=== PATIENT | female | born 1950 | race Caucasian/White ===

== ENCOUNTER 2020-01-10 11:55 | Outpatient (CLI) | payer MEDICARE, SELFPAY ==
--- NOTE | ~2020-01-10 | US_ITS ---
EXAMINATION: US right upper quadrant DATE: 01/10/2020 12:55 INDICATION: Abnormal liver function tests. Generalized abdominal pain. TECHNIQUE: Multiple grayscale and Doppler ultrasound images of the abdomen were obtained. COMPARISON: Chest CT 07/27/2017 FINDINGS: The visualized portions of the head and body of the pancreas are normal. There is diffuse h epatic steatosis. No liver surface nodularity. There is normal flow in main portal vein. The gallblad layton is absent. The common duct is normal and measures 10 mm. IMPRESSION: 1. Diffuse hepatic steatosis. Reviewed, dictated and finalized at location A. Y PACKER
== END 2020-01-10 11:56 | disposition home or self-care (01) ==
PROVIDERS: PCP Family Medicine; Visit Provider Family Medicine
DX: R94.5 Abnormal results of liver function studies (principal); K76.0 Fatty (change of) liver, not elsewhere classified
CPT/HCPCS: 76705

== ENCOUNTER 2021-03-26 16:44 | Emergency (ER) | payer MEDICARE, SELFPAY ==
--- NOTE | ~2021-03-26 | XR_ITS ---
EXAMINATION: XR lumbar spine 2-3V EXAM DATE: 03/26/2021 18:34 INDICATION: Low back pain radiating down bilateral legs. TECHNIQUE: Lumber spine frontal, lateral, lateral L5-S1 projections for interpretation. There is no prior study for comparison. FINDINGS: Mild to moderate lumbar levoscoliosis. Moderate to severe disc disease L2-3, moderate at L5 -S1 and mild to moderate at the other lumbar levels. The vertebral bodies are aligned in the AP dimen david. There are no acute fractures identified. There is mild abdominal aortic arteriosclerotic diseas e. Sacrum, sacroiliac joints, sacral arcuate lines are intact. Moderate lower lumbar facet arthropat hy. There are cholecystectomy clips. IMPRESSION: 1. Overall moderate lumbar spondylosis. 2. Mild to moderate levoscoliosis. 3. No acute findings. Reviewed, dictated and finalized at location A.
[2021-03-26 16:47] VITALS: BP 119/45; PULSE 83; RESP 18; TEMP 35.4; O2SAT 99
--- NOTE | 2021-03-26 18:12 | ED.BACK ---
HPI - Back Pain/Injury General Chief Complaint: Back Pain/Injury <Jesica Alejandra PA-C - Last Filed: 03/26/21 19:08> Stated Complaint: LBP <RUSTAM Mcduffie Last Filed: 03/26/21 19:08> Time Seen by Provider: 03/26/21 17:58 <RUSTAM Mcduffie Last Filed: 03/26/21 19:08> Source: patient <RUSTAM Mcduffie Last Filed: 03/26/21 19:08> Mode of arrival: wheelchair <RUSTAM Mcduffie Last Filed: 03/26/21 19:08> Limitations: no limitations <RUSTAM Mcduffie Last Filed: 03/26/21 19:08> History of Present Illness HPI Narrative: This is a 70-year-old female that presents the emergency department for low back pain x1 week. Does report history of intermittent flares of her sciatic nerve. Pain is worse with movement and relieved with rest. Reports a week ago she had been putting away groceries and after that felt like she had to start her back. She has been having ongoing buttock pain bilaterally that rates into the legs posteriorly. She saw her primary for this today who gave her a shot of Toradol. She also took her hydrocodone this afternoon for pain. Denies any recent injuries or trauma. Denies fever, saddle anesthesia, bowel/bladder incontinence, weakness, or numbness. <RUSTAM Mcduffie Last Filed: 03/26/21 19:08> Related Data Allergies/Adverse Reactions: Allergies Allergy/AdvReac Type Severity Reaction Status Date / Time baclofen Allergy Mild Unknown Verified 03/26/21 18:12 levofloxacin Allergy Mild FAST HR Verified 09/20/19 14:59 zolpidem Allergy Mild Anxiety Verified 03/26/21 18:12 CEFUROXIME AXETIL Allergy Mild Unknown Uncoded 03/26/21 18:12 Contrast Media Allergy Mild Flushing Uncoded 03/26/21 18:12 <RUSTAM Mcduffie Last Filed: 03/26/21 19:08> Review of Systems Review of Systems: Narrative: CONSTITUTIONAL: Denies fever GENITOURINARY: Denies dysuria or hematuria. SKIN: Denies rash MUSCULOSKELETAL: Reports back pain, joint pain, and myalgia. NEUROLOGIC: Denies numbness, or weakness. <Jesica Alejandra PA-C - Last Filed: 03/26/21 19:08> All systems reviewed & are unremarkable except as noted in HPI and below <Jesica Alejandra PA-C - Last Filed: 03/26/21 19:08> PMFSH Past Medical History Medical History: Medical History (Updated 03/27/21 @ 00:00 by Background Daemon) History of COPD History of depression History of hypertension History of hypothyroidism <Jesica Alejandra PA-C - Last Filed: 03/26/21 19:08> Exam Narrative: Exam Narrative: GENERAL: Well-appearing, well-nourished, and in no acute distress. HEAD: Normocephalic, atraumatic. EYES: EOMI. CHEST: Clear to auscultation. No respiratory distress. No wheezes rales or rhonchi HEART: Regular rate and rhythm. No murmur heard. Normal peripheral pulses. BACK: No midline spinal tenderness EXTREMITIES: Normal range of motion. No edema. Strength equal in bilateral lower extremities (5/5). Normal DP pulses. Normal sensation SKIN: Warm, dry, no rash. NEURO: No focal deficits. Alert and oriented x3. PSYCH: Normal mood and affect <Jesica Alejandra PA-C - Last Filed: 03/26/21 19:08> Course Vital Signs Vital signs: Vital Signs Temperature 35.4 C L 03/26/21 16:47 Pulse Rate 83 03/26/21 16:47 Respiratory Rate 18 03/26/21 16:47 Blood Pressure 119/45 L 03/26/21 16:47 Pulse Oximetry 99 03/26/21 16:47 Temperature 35.4 C L 03/26/21 16:47 Pulse Rate 83 03/26/21 16:47 Respiratory Rate 18 03/26/21 16:47 Blood Pressure 119/45 L 03/26/21 16:47 Pulse Oximetry 99 03/26/21 16:47 <RUSTAM Mcduffie Last Filed: 03/26/21 19:08> Vital Signs Temperature 35.4 C L 03/26/21 16:47 Pulse Rate 83 03/26/21 16:47 Respiratory Rate 18 03/26/21 16:47 Blood Pressure 119/45 L 03/26/21 16:47 Pulse Oximetry 99 03/26/21 16:47 Temperature 35.4 C L 03/26/21 16:47 Pulse Rate 83 03/26/21 16:47 Respiratory Rate 18 03/26
[2021-03-26] MEDS: diazePAM INJ (*CRX) 10 MG/2 ML SYRINGE 5 MG IM (18:18)
[2021-03-26] MEDS: ACETAMINOPHEN 500 MG TABLET 1000 MG PO (18:20)
== END 2021-03-26 19:10 | disposition home or self-care (01) ==
PROVIDERS: Emergency Provider Emergency Medicine; PCP Family Medicine
DX: M47.26 Other spondylosis with radiculopathy, lumbar region (principal); J44.9 Chronic obstructive pulmonary disease, unspecified; I10 Essential (primary) hypertension; E03.9 Hypothyroidism, unspecified
CPT/HCPCS: 72100; 96372; 99283; A9270; J3360

== ENCOUNTER 2022-04-05 08:24 | Outpatient (CLI) | payer MEDICARE, SELFPAY ==
--- NOTE | ~2022-04-05 | US_ITS ---
US abdomen limited INDICATION: Gastroesophageal reflux disease. Esophagitis. PROCEDURE: Realtime right upper abdominal ultrasound. COMPARISON: No prior studies for comparison. FINDINGS: The pancreas is normal without focal mass or pancreatic ductal dilation. Liver echotexture is increased, consistent with fatty infiltration. There is normal directional flow in the portal ve in. Gallbladder is not identified, likely surgically absent. Common bile duct measures 2.8 mm. IMPRESSION: 1: Hepatic steatosis. Reviewed, dictated and finalized at location A. IMPRESSION: 1: Hepatic steatosis.
== END 2022-04-05 08:25 | disposition home or self-care (01) ==
LOC: ANHIMG 08:30
PROVIDERS: PCP Family Medicine
DX: K21.00 Gastro-esophageal reflux disease with esophagitis, without bleeding (principal); R74.8 Abnormal levels of other serum enzymes
CPT/HCPCS: 76705

== ENCOUNTER 2022-04-05 09:07 | Emergency (ER) | payer MEDICARE, SELFPAY ==
--- NOTE | ~2022-04-05 | XR_ITS ---
EXAMINATION: XR thoracic spine 3V DATE: 04/05/2022 10:13 INDICATION: Right-sided upper to mid back pain. TECHNIQUE: 3 views of thoracic spine were obtained. COMPARISON: Chest 2 views 07/16/2017, chest CT 07/27/17 FINDINGS: There is 13 degrees dextroscoliosis of thoracic spine. There is a burst fracture of T7 with 2/5 loss of height. Intervertebral disc heights are normal and thoracic spine. There are endplate os teophytes at multiple levels. Surgical clips in the right upper quadrant are likely from cholecystect ayo. IMPRESSION: 1. Age-indeterminate burst fracture of T7, new from 07/27/2017. 2. Thoracic dextroscoliosis. Reviewed, dictated and finalized at location A.
[2022-04-05 09:16] VITALS: BP 179/93; PULSE 95; RESP 22; TEMP 36.8; O2SAT 100
--- NOTE | 2022-04-05 09:54 | ED.BACK ---
HPI - Back Pain/Injury General Chief Complaint: Back Pain/Injury <Hany Sanderson APRN - Last Filed: 04/05/22 16:42> Stated Complaint: BACK PAIN <Hany Sanderson APRN - Last Filed: 04/05/22 16:42> Time Seen by Provider: 04/05/22 09:50 <Hany Sanderson APRN - Last Filed: 04/05/22 16:42> History of Present Illness HPI Narrative: 71-year-old female presents to the emergency room for evaluation of acute on chronic thoracic back pain that has been present since this morning. Patient denies injury, trauma, fever. Patient states the pain is worse when rotating her torso and when bending forward. Patient states that she normally takes Flexeril and [place], reports this morning those did not alleviate her symptoms. Patient denies any radiating pain. Patient states pain is worse when she takes a deep breath. Patient denies any upper respiratory symptoms. <Hany Sanderson APRN - Last Filed: 04/05/22 16:42> Related Data Allergies/Adverse Reactions: Allergies Allergy/AdvReac Type Severity Reaction Status Date / Time baclofen Allergy Mild Unknown Verified 04/05/22 09:22 levofloxacin Allergy Mild FAST HR Verified 04/05/22 09:22 zolpidem Allergy Mild Anxiety Verified 04/05/22 09:22 CEFUROXIME AXETIL Allergy Mild Unknown Uncoded 04/05/22 09:22 Contrast Media Allergy Mild Flushing Uncoded 04/05/22 09:22 <Hany Sanderson APRN - Last Filed: 04/05/22 16:42> Review of Systems Review of Systems: CONSTITUTIONAL: Denies fever, chills, or sweats. EYES: Denies visual changes, redness, or discharge. GASTROINTESTINAL: Denies abdominal pain, nausea, vomiting, or diarrhea. GENITOURINARY: Denies dysuria MUSCULOSKELETAL: Reports thoracic back pain NEUROLOGIC: Denies headache, numbness, dizziness, or weakness. PSYCHIATRIC: Denies anxiety or depression. <Hany Sanderson APRN - Last Filed: 04/05/22 16:42> All systems reviewed & are unremarkable except as noted in HPI and below <Hany Sanderson APRN - Last Filed: 04/05/22 16:42> [facility] Past Medical History Medical History: Medical History History of COPD History of depression History of hypertension History of hypothyroidism <Hany Sanderson APRN - Last Filed: 04/05/22 16:42> Exam Narrative: GENERAL: Well-appearing, well-nourished, and in no acute distress. HEAD: Normocephalic, atraumatic. EYES: PERRLA and EOMI. ENT: Nares clear, no rhinorrhea or epistaxis. Mucous membranes moist. Oropharynx without tonsillar hypertrophy exudate or other lesions. Bilateral TMs pearly hartmann nonbulging NECK: Supple. No adenopathy or masses. No carotid bruits or JVD CHEST: Clear to auscultation. No respiratory distress. No wheezes rales or rhonchi HEART: Regular rate and rhythm. No murmur heard. Normal peripheral pulses. ABDOMEN: Soft, nontender, nondistended, normal active bowel sounds. EXTREMITIES: Normal range of motion. No edema. BACK: No midline thoracic spinal tenderness, no step-offs, no bony abnormality; tenderness over the left and right latissimus dorsi muscles SKIN: Warm, dry, no rash. NEURO: No focal deficits. Alert and oriented x3. PSYCH: Normal mood and affect. <Hany Sanderson APRN - Last Filed: 04/05/22 16:42> Course Course Emergency Course: 1100: Discussed case with orthospine at [facility], they are recommending patient transfer over to ER for further evaluation and treatment. Discussed findings and case with patient and she is agreeable to treatment plan <Hany Sanderson APRN - Last Filed: 04/05/22 16:42> ELECTRICAL MANUFACTURING TECHNICIAN/PA Physician Supervision For this encounter, I have reviewed the PA documentation, treatment plan and medical decision making: And I have had [id number] time with the patient. Discussed with patient need for transfer discussed all questions patient is in agreement <Bhupinder Bill DO - Last Filed: 04/05/22 11:27> Vital Signs Vital signs: Vital Signs Temper
[2022-04-05 10:34] LABS: Appearance Urine Slightly Cloudy (Clear); Bilirubin Urine 1+ (Negative); Blood Urine Negative (Negative); Color Urine Yellow (Yellow); Glucose Urine UA Negative (Negative); Ketones Urine Negative (Negative); Leukocyte Esterase Ur Negative LEU/UL (Negative); Nitrate Urine Negative (Negative); Protein Urine Negative (Negative); Specific Grav Ur >= 1.030 (1.001-1.035); Urobilinogen Urine 0.2 mg/dL (<2.0); pH Urine 5.5 (5.0-9.0)
[2022-04-05 10:43] LABS: Add Urine Microscopic? YES; Bacteria Urine Trace /hpf; Calcium Oxalate Crystals Urine Present /hpf; Mucus Urine Heavy /lpf; Squamous Epithelial Cell Urine Many /hpf (Few); WBC Urine 0-3 /hpf
--- NOTE | 2022-04-05 11:35 | PC.NURSE ---
report called to KERRIE macdonald calledfor transport
--- NOTE | 2022-04-05 11:40 | PC.NURSE ---
per house sup called macdonald dispatch for bls transfer to [facility] [place] 20min trip #[phone]
[2022-04-05] MEDS: MORPHINE SULFATE (*CRX) 2 MG/ML INJ IV PUSH (12:24)
[2022-04-05 12:32] VITALS: BP 132/78; PULSE 76; RESP 18; O2SAT 99
== END 2022-04-05 12:33 | disposition short-term general hospital (02) ==
PROVIDERS: Emergency Medicine; Emergency Provider Nurse Practitioner Family; PCP Family Medicine
DX: S22.061A Stable burst fracture of T7-T8 vertebra, initial encounter for closed fracture (principal); K76.0 Fatty (change of) liver, not elsewhere classified; J44.9 Chronic obstructive pulmonary disease, unspecified; I10 Essential (primary) hypertension; E03.9 Hypothyroidism, unspecified; X58.XXXA Exposure to other specified factors, initial encounter
CPT/HCPCS: 72072; 76705; 81001; 96374; 99285; J2270

== ENCOUNTER 2022-05-14 09:15 | Outpatient (CLI) | payer MEDICARE, SELFPAY ==
--- NOTE | ~2022-05-14 | XR_ITS ---
EXAMINATION: XR barium swallow DATE: 05/14/2022 10:01 INDICATION: Esophageal dysphagia TECHNIQUE: The patient drank thick barium, gas-producing crystals, and thin barium. Fluoroscopic spot radiographs of the hypopharynx and esophagus were obtained. Fluoroscopy exposure time was 2.0 minut es. COMPARISON: 1607 FINDINGS: The pharynx is symmetric and without evidence of mass lesion or mucosal irregularity. Thick barium residue at the vallecula and piriform sinuses following the swallow The esophagus is normal w ithout mass or stricture. Esophageal motility is within normal limits for age. There is no hiatal her reshma. There was a single episode of gastroesophageal reflux of a very small amount of contrast into th e distal esophagus with provocative maneuvers. Visualized stomach and proximal small bowels appear no rmal. Cholecystectomy clips in right upper quadrant. T7 compression fracture with change of prior lawrence tebroplasty. IMPRESSION: 1. Mild pharyngeal dysphagia with vallecular and piriform sinus residue with thick barium. 2. Esophageal motility is within normal limits for age. No masses or strictures. 3. Single episode of gastroesophageal reflux of a very small amount of contrast into the distal esoph shellie.. Reviewed, dictated and finalized at location A. IMPRESSION: 1. Mild pharyngeal dysphagia with vallecular and piriform sinus residue with th ick barium. 2. Esophageal motility is within normal limits for age. No masses or strictures . 3. Single episode of gastroesophageal reflux of a very small amount of contrast into the distal esophagus..
== END 2022-05-14 09:16 | disposition home or self-care (01) ==
PROVIDERS: PCP Family Medicine
DX: R13.19 Other dysphagia (principal)
CPT/HCPCS: 74220

== ENCOUNTER 2022-10-12 10:18 | Outpatient (CLI) | payer MEDICARE, SELFPAY ==
--- NOTE | ~2022-10-12 | MR_ITS ---
EXAMINATION: MR lumbar spine wo con DATE: 10/12/2022 11:49 INDICATION: Low back pain. Closed stable burst fracture of seventh thoracic vertebra. TECHNIQUE: Magnetic resonance imaging (MRI) of the lumbar spine was performed without intravenous con trast. Sequences included sagittal T2-weighted FSE, sagittal T2-weighted FS FSE, sagittal T1-weighted FSE, and axial T2-weighted FSE. COMPARISON: Lumbar spine MRI 06/21/2005 FINDINGS: There is 13 degrees levoscoliosis of lumbar spine. There is a burst fracture of inferior en dplate of L3 with 1/5 loss of height, edema-like signal intensity, and retropulsion of bone 3 mm into central spinal canal. There is a burst fracture of superior endplate of L4 with less than 1/5 loss o f height and edema-like marrow signal intensity. There is mild chronic anterior wedging of T10 and T1 1 vertebral bodies. There is a chronic compression fracture of L5 with less than 1/5 loss of height. There is mildly decreased disc height at L1-L2, severely decreased disc height at L2-L3, and moderate ly decreased disc height at L5-S1. The distal spinal cord signal intensity is normal. The conus medul kaur is at L1. The following disc levels are specifically discussed: L1-L2: The disc is bulging. There is mild bilateral facet joint osteoarthritis. There is mild left ne ural foraminal stenosis. There is mild central canal stenosis. L2-L3: The disc is bulging. There is moderate right and mild left facet joint osteoarthritis. There i s mild bilateral neural foraminal stenosis. There is mild central canal stenosis. L3-L4: The disc is bulging. There is moderate bilateral facet joint osteoarthritis. There is mild yusef ateral neural foraminal stenosis. There is mild central canal stenosis. L4-L5: The disc is bulging. There is severe bilateral facet joint osteoarthritis. There is mild bilat eral neural foraminal stenosis. There is no central canal stenosis. L5-S1: The disc is bulging. There is severe bilateral facet joint osteoarthritis. There is mild bilat eral neural foraminal stenosis. There is mild central canal stenosis. IMPRESSION: 1. Burst fractures of L3 and L4, likely acute or subacute. 2. Severe lumbar spondylosis. 3. Lumbar levoscoliosis. Reviewed, dictated and finalized at location A. ATIONS SYSTEMS SPECIALIST
== END 2022-10-12 10:19 | disposition home or self-care (01) ==
PROVIDERS: PCP Family Medicine; Visit Provider Neurological Surgery
DX: S22.061S Stable burst fracture of T7-T8 vertebra, sequela (principal); M54.9 Dorsalgia, unspecified; S32.031A Stable burst fracture of third lumbar vertebra, initial encounter for closed fracture; S32.041A Stable burst fracture of fourth lumbar vertebra, initial encounter for closed fracture; M43.06 Spondylolysis, lumbar region; M41.86 Other forms of scoliosis, lumbar region
CPT/HCPCS: 72148

== ENCOUNTER 2022-12-27 08:03 | Emergency (ER) | payer MEDICARE, SELFPAY ==
--- NOTE | ~2022-12-27 | CT_ITS ---
EXAMINATION: CT abdomen pelvis wo con DATE: 12/27/2022 09:29 INDICATION: Right flank pain TECHNIQUE: Computed tomography (CT) of the abdomen and pelvis was performed without intravenous contr ast. The dose-length product (DLP) was 306.79 mGy-cm. Automated exposure control and iterative recons truction technique were employed. COMPARISON: MRI, 10/12/2022 FINDINGS: The lung bases are clear. The heart size is normal. The gallbladder is surgically absent. T he liver, spleen, pancreas, and adrenal glands are normal. There is calcified atherosclerosis of the aorta and many of the other arteries. No pathologically enlarged abdominal or pelvic lymph nodes are identified. No free intraperitoneal gas or evidence of bowel obstruction. The kidneys are unremarkabl e. No stones are identified in the kidneys, ureters, or bladder. No hydronephrosis or hydroureter. Th ere is a large volume of stool in the right colon. Again noted are burst fractures of L3 and L4. Ther e has been worsening loss of vertebral body height at L4 since the comparison MRI. A compression frac ture of T12 is new since the comparison examination. IMPRESSION: 1. Large volume of stool in the right colon. 2. T12 compression fracture, new since the comparison examination. 3. Chronic burst fractures of L3 and L4 with worsening loss of vertebral body height at L4 since the comparison MRI. Reviewed, dictated and finalized at location B. K WETTER IMPRESSION: 1. Large volume of stool in the right colon. 2. T12 compression fracture, new since the comparison examination. 3. Chronic burst fractures of L3 and L4 with worsening loss of vertebral body h eight at L4 since the comparison MRI.
[2022-12-27 08:19] VITALS: BP 149/90; PULSE 100; RESP 18; TEMP 37; O2SAT 98
--- NOTE | 2022-12-27 09:07 | ED.BACK ---
HPI - Back Pain/Injury General Chief Complaint: Back Pain/Injury Stated Complaint: CHRONIC BACK PAIN Time Seen by Provider: 12/27/22 08:52 History of Present Illness HPI Narrative: Patient is a 72-year-old female here for evaluation of acute right flank pain over the past day. Patient states the pain is severe in nature, originating in her right flank and does radiate towards the middle of her thoracic spine. She states that she has attempted [place] without relief of her symptoms. She does have a history of a thoracic spine compression fracture for which she follows with an orthopedist at [facility]. No trauma to her spine, fevers or chills, nausea or vomiting. She does have a history of urge incontinence and does note that she had an episode of this before coming to the ED. No dysuria, hematuria. Related Data Allergies Allergy/AdvReac Type Severity Reaction Status Date / Time baclofen Allergy Mild Unknown Verified 12/27/22 08:24 levofloxacin Allergy Mild FAST HR Verified 12/27/22 08:24 zolpidem Allergy Mild Anxiety Verified 12/27/22 08:24 CEFUROXIME AXETIL Allergy Mild Unknown Uncoded 12/27/22 08:24 Contrast Media Allergy Mild Flushing Uncoded 12/27/22 08:24 Review of Systems Review of Systems: Gen.: Denies fevers or chills Eyes: Denies eye pain or visual change ENT: Denies congestion Respiratory: Denies shortness of breath or cough CV: Denies chest pain or palpitations GI: Denies abdominal pain nausea, emesis or diarrhea denies burning, urgency, frequency or hematuria Musculoskeletal: Reports right flank pain Neuro: Denies numbness, tingling, weakness or focal weakness Skin: Denies rash Except as documented, all other systems reviewed and negative PMFSH Past Medical History Medical History History of COPD History of depression History of hypertension History of hypothyroidism Exam Narrative: APPEARANCE: Well appearing, no pain in distress, well-nourished. Head: Normocephalic and atraumatic. EYES: PERRLA/EOMI, conjunctivae clear NOSE: No nasal drainage EARS: External ear normal in appearance THROAT: Oropharynx is clear. Mucous membranes are moist. NECK: Supple. No adenopathy, no masses. RESPIRATORY: Airway patent, respirations nonlabored. Clear to auscultation bilaterally, no rales, rhonchi, wheezing. CARDIOVASCULAR: Regular rate and rhythm without murmurs, rubs, or gallops. ABDOMINAL: Normoactive bowel sounds. Soft, nontender, nondistended. No rebound tenderness or guarding. MUSCULOSKELETAL: Tenderness to palpation along right flank and midline of T10/t11. NEURO: Normal speech. No focal neurologic deficits. SKIN: Skin is warm and dry. No rashes. PSYCHIATRIC: Normal affect/mood.. Course Vital Signs Vital signs: Vital Signs Temperature 98.6 F 12/27/22 08:19 Pulse Rate 100 12/27/22 08:19 Respiratory Rate 18 12/27/22 08:19 Blood Pressure 149/90 H 12/27/22 08:19 Pulse Oximetry 98 12/27/22 08:19 Oxygen Delivery Room Air 12/27/22 08:19 Temperature 98.6 F 12/27/22 08:19 Pulse Rate 100 12/27/22 08:19 Respiratory Rate 18 12/27/22 08:19 Blood Pressure 149/90 H 12/27/22 08:19 Pulse Oximetry 98 12/27/22 08:19 Oxygen Delivery Room Air 12/27/22 08:19 MDM - Back Pain/Injury MDM Narrative Medical decision making narrative: Patient is a 72-year-old female here for evaluation of acute on chronic low back pain, tenderness to palpation along midline of thoracic spine without trauma. She has evidence of a new T12 compression fracture on the CT. She has no weakness in her legs, numbness or tingling in groin, acute incontinence or retention of bowel or bladder. Patient feeling improved after pain meds, able to ambulate with a walker. Feels ready to go home; has home meds that she has not been using for chronic pain. Discussed with neurosurgery; agrees with plan; will see in clinic. Recommend contacting back brace clinic; [facility]
[2022-12-27 09:25] LABS: Basophils Percent Auto 0.2 % (0.2-1.2); Eosinophils Percent Auto 0.3 % (0-4.4); Hematocrit 41.9 % (37.0-47.0); Immature Granulocyte Absolute 0.06 K/mm3 (0.00-0.031); Immature Granulocyte Percent A 0.9 % (0-0.5); Lymphocytes Absolute Auto 0.66 K/mm3 (0.9-3.2); Lymphocytes Percent Auto 10.1 % (18.3-44.2); Mean Corpuscular HGB Conc 33.4 g/dl (32-36); Mean Corpuscular Hemoglobin 32.7 pg (26-34); Mean Corpuscular Volume 97.9 fl (80-100); Mean Platelet Volume 10.1 fl (7.4-10.4); Monocytes Absolute Auto 0.5 K/mm3 (0.1-0.6); Monocytes Percent Auto 8.1 % (2.6-8.5); Neutrophils Absolute Auto 5.3 K/mm3 (1.3-6.7); Neutrophils Percent Auto 80.4 % (45.5-73.1); Platelet Count Result 156 k/mm3 (150-375); Red Blood Count 4.28 M/mm3 (4.2-5.4); Red Cell Distribution Width 15.1 % (11.5-14.5); White Blood Count 6.6 K/mm3 (4.5-10.0)
[2022-12-27] MEDS: MORPHINE SULFATE (*CRX) 4 MG/ML INJ IV PUSH (09:36)
[2022-12-27 09:45] LABS: Alanine Aminotransferase 32 U/L (6-35); Albumin Level 3.4 g/dL (3.5-5.1); Alkaline Phosphatase 67 U/L (38-126); Anion Gap 3 mmol/L (8-16); Aspartate Amino Transferase 38 U/L (14-36); Bilirubin,Total 1.2 mg/dL (0.2-1.3); Blood Urea Nitrogen 23 mg/dL (7-17); Calcium 8.6 mg/dL (8.4-10.2); Carbon Dioxide 31 mmol/L (22-30); Chloride 104 mmol/L (98-107); Estimated CRCL calculation 43 ml/min; Estimated Glomerular Filt Rate > 60; Glucose 86 mg/dL (65-110); Sodium 138 mmol/L (137-145)
[2022-12-27 10:20] LABS: Appearance Urine Clear (Clear); Bilirubin Urine 1+ (Negative); Blood Urine Negative (Negative); Color Urine Yellow (Yellow); Glucose Urine UA Negative (Negative); Ketones Urine Negative (Negative); Leukocyte Esterase Ur Trace LEU/UL (Negative); Nitrate Urine Negative (Negative); Protein Urine Negative (Negative); Specific Grav Ur 1.015 (1.001-1.035); Urobilinogen Urine 0.2 mg/dL (<2.0)
[2022-12-27 10:24] LABS: Mucus Urine Rare /lpf; RBC Urine 0-2 /hpf (0-2); Squamous Epithelial Cell Urine Few /hpf (Few); WBC Urine 0-3 /hpf
[2022-12-27 10:25] LABS: Add Urine Microscopic? YES
[2022-12-27] MEDS: LIDOCAINE 5% PATCH 1 PATCH TRANSDERM (10:59)
== END 2022-12-27 11:32 | disposition home or self-care (01) ==
PROVIDERS: Emergency Provider Physician Assistant; PCP Family Medicine
DX: M48.54XA Collapsed vertebra, not elsewhere classified, thoracic region, initial encounter for fracture (principal); J44.9 Chronic obstructive pulmonary disease, unspecified; I10 Essential (primary) hypertension; E03.9 Hypothyroidism, unspecified
CPT/HCPCS: 36415; 74176; 80053; 81001; 83605; 85025; 96374; 99284; A9270; J2270

== ENCOUNTER 2023-03-16 14:15 | Outpatient (CLI) | payer MEDICARE, SELFPAY ==
--- NOTE | ~2023-03-16 | DEXA_ITS ---
Bone Density Report Name: ROSANGELA ORR Age: 72 Sex: Female Ethnicity: White Date of : 1950 Indication: postmenopausal; screening for osteoporosis; inflammatory bowel disease; prior fracture; asthma or emphysema; hysterectomy; rheumatoid arthritis; Referring Provider: BETTYE, OSMAN Beasley Study: Bone densitometry was performed. Exam Date: March 16, 2023 Accession number: [id number] Bone Density: Region BMD T-score Z-score Classification AP Spine(L1, L2, L3) 0.752 -2.4 -0.3 Osteopenia Femoral Neck (Left) 0.420 -3.9 -2.0 Osteoporosis Total Hip (Left) 0.540 -3.3 -1.8 Osteoporosis Femoral Neck (Right) 0.461 -3.5 -1.7 Osteoporosis Total Hip (Right) 0.570 -3.0 -1.5 Osteoporosis Total Hip Mean 0.555 -3.2 -1.7 Osteoporosis World Health Organization criteria for BMD impression classify patients as: Normal (T-score at or above -1.0), Osteopenia (T-score between -1.0 and -2.5), or Osteoporosis (T-score at or below -2.5). 10-year Fracture Risk: FRAX not reported because: Some T-score for Spine Total or Hip Total or Femoral Neck at or below -2.5 Prior hip or vertebral fracture Clinical Information Provided by Patient: Have had a previous hip or vertebral fracture Has had a low trauma fracture Has rheumatoid arthritis Has used the following medications: Vitamin D, Calcium Has the following medical conditions: Asthma or Emphysema, Inflammatory bowel diseases, Hysterectomy Patient maximum height was 51 Menopause Age: 46 Does not regularly consume dairy products Drinks caffeinated beverages Onset of menses at age 15 Number of children 2 Impression: The patient has established osteoporosis, based on the Left Femoral Neck T-score and the existence of a prior fracture. The patient has risk factors, including: previous fracture. Discussion: HIGH RISK OF FRACTURE. BONE DENSITY IS UNDESIRABLY LOW AT ONE OR MORE SKELETAL SITES, CONSISTENT WITH POSTMENOPAUSAL OSTEOPOROSIS. This patient's lowest T-score, in a patient who has previously fractured, meets the World Health Organization's (WHO) criteria for severe osteoporosis. In untreated patients, the risk of osteoporotic fracture increases approximately two-fold for each 1.0 SD decrease in T-score. Low bone density is not the only risk factor for fracture; also consider factors such as patient's age, frailty or poor health, risk of falling, risk of injury, previous osteoporotic fracture, family history of osteoporosis, cigarette smoking, low body weight, etc. Not everyone with low bone mineral density has osteoporosis; osteomalacia and other metabolic bone disorders should also be considered. Patients who have osteoporosis should be evaluated for specific diseases and conditions (secondary causes) that may cause or contribute to bone loss. [employer]
[2023-03-16 16:13] LABS: Alanine Aminotransferase 23 U/L (6-35); Albumin Level 3.3 g/dL (3.5-5.1); Alkaline Phosphatase 95 U/L (38-126); Anion Gap 4 mmol/L (8-16); Aspartate Amino Transferase 56 U/L (14-36); Bilirubin,Total 0.9 mg/dL (0.2-1.3); Blood Urea Nitrogen 16 mg/dL (7-17); Calcium 8.7 mg/dL (8.4-10.2); Carbon Dioxide 28 mmol/L (22-30); Chloride 105 mmol/L (98-107); Estimated Glomerular Filt Rate > 60; Glucose 106 mg/dL (65-110); Potassium 3.9 mmol/L (3.4-5.0); Sodium 137 mmol/L (137-145)
[2023-03-16 16:25] LABS: Parathyroid Intact 42.5 pg/mL (7.5-53.5)
[2023-03-16 17:32] LABS: Free T4 Free Thyroxine 1.63 ng/mL (0.78-2.19); Vitamin D 25 Hydroxy 56.8 ng/mL
[2023-03-19 04:40] LABS: Thyroid Peroxidase Antibodies <1 IU/mL (<9)
[2023-03-20 04:05] LABS: Triiodothyronine T3 Free 2.9 pg/mL (2.3-4.2)
== END 2023-03-16 14:16 | disposition home or self-care (01) ==
LOC: ANHIMG 14:42
PROVIDERS: PCP Family Medicine; Visit Provider Internal Medicine Endocrinology, Diabetes & Metabolism
DX: M81.0 Age-related osteoporosis without current pathological fracture (principal); E03.9 Hypothyroidism, unspecified; M85.88 Other specified disorders of bone density and structure, other site
CPT/HCPCS: 36415; 77080; 80053; 82306; 83970; 84439; 84443; 84481; 86376

== ENCOUNTER 2023-06-05 12:12 | Inpatient (IN) | payer MEDICARE, SELFPAY ==
[2023-06-05] VITALS (28 sets, daily range): BP systolic 95–160; BP diastolic 56–101; PULSE 86–105; RESP 12–28; TEMP 36–36.8; O2SAT 78–100; BMI 18.4
--- NOTE | ~2023-06-05 | XR_ITS ---
XR chest 2V 06/05/2023 12:58 Indication: Epigastric discomfort Procedure: 2 view chest Comparison: 07/16/2017 Findings: Heart size normal. No focal air space disease, pulmonary edema, pleural effusion or suspect ed pneumothorax. There are multiple compression fractures treated with vertebroplasty. Impression: 1: No acute cardiopulmonary disease. Reviewed, dictated and finalized at location A. Impression: 1: No acute cardiopulmonary disease.
--- NOTE | ~2023-06-05 | XR_ITS ---
MODIFIED ESOPHAGRAM HISTORY: Dysphagia. TECHNIQUE: Modified barium esophagram was performed by speech pathologist under radiologist fluorosco pic guidance. This was recorded on tape. The exam was reviewed on 06/06/2023 14:04 CDT. The DAP for this procedure was 0.61 Gycm2. Fluoroscopy time is 1.3 minutes. FINDINGS: Lateral projection of the cervical spine demonstrates normal alignment. There is normal s wallowing function without evidence for penetration or aspiration.. IMPRESSION: 1: Normal swallowing function without penetration or aspiration. 2: Please refer to speech pathologist report for additional detail. Reviewed, dictated and finalized at location A.
--- NOTE | ~2023-06-05 | CT_ITS ---
EXAMINATION: CT abdomen pelvis w con DATE: 06/06/2023 10:08 INDICATION: 25 pound weight loss in several months TECHNIQUE: Computed tomography (CT) of the abdomen and pelvis was performed with 90 CC Omnipaque 350 intravenous contrast. Automated exposure control and iterative reconstruction technique were employed . Exam dose: 278.76 mGy-cm total exam DLP. COMPARISON: December 27, 2022 CT abdomen pelvis FINDINGS: There is mild atelectasis at the lung bases. Normal heart size. No pericardial or pleural effusion. There is diffuse hepatic steatosis. No focal hepatic space-occupying mass lesion is detected. Status post cholecystectomy. No bile duct or pancreatic duct dilatation is detected. No pancreatic ma ss lesion or calcification. Normal splenic size. Normal morphology of the adrenal glands. 4.7 mm upper pole right renal cyst. The kidneys are otherwise unremarkable. No urinary tract calculus or hydroureteronephrosis is evident. The urinary bladder is unremarkable. Status post hysterectomy. There is perihepatic and perisplenic and bilateral paracolic gutter and more prominent pelvic ascites . There is a fairly prominent amount of fecal material in the rectum and colon. No bowel obstruction is detected. No intraperitoneal free air. Normal caliber but prominent atherosclerotic calcification of the abdominal aorta, iliac and femoral arteries. There is calcification at the origins of the celiac, superior mesenteric arteries and parti cularly the right renal artery. No intraperitoneal or retroperitoneal or pelvic mass lesion or adenopathy is detected. There is vertebroplasty at T12 and L4 fractures. Osteopenia. Multilevel degenerative disc disease of the lumbar spine, severe at L2-3 and L5-S1. IMPRESSION: Diffuse hepatic steatosis and moderate ascites Reviewed, dictated and finalized at Location A. Reviewed, dictated and finalized at location B.
--- NOTE | ~2023-06-05 | XR_ITS ---
EXAMINATION: XR_KUBGTUBINS_CR DATE: 06/07/2023 15:57 INDICATION: Nasogastric tube placement TECHNIQUE: AP view of the abdomen was obtained. COMPARISON: CT dated 06/06/2023 FINDINGS: Nasogastric tube tip in proximal side port in the body of the stomach. There is some oral contrast ma terial extending across the transverse colon likely related to the modified barium swallow study perf ormed one day prior. Cholecystectomy clips in right upper quadrant. No dilated loops of gas-filled liliya wel to suggest obstruction. T7, T12 and L4 compression fractures with change of prior vertebral plast ies. IMPRESSION: 1. Nasogastric tube in stomach. Reviewed, dictated and finalized at location A.
--- NOTE | ~2023-06-05 | CT_ITS ---
Non-contrast Head CT History: Confusion Technique: Axial non-contrast imaging of the brain was performed. Dose reduction technique was used on this scan by utilizing automated exposure control and iterative reconstruction technique. The dose -length product (DLP) was 605.33 mGy-cm. Findings: There is no evidence of intracranial hemorrhage, mass lesion, or acute infarct. Brain par enchyma appears normal. The ventricles and subarachnoid spaces are normal in size. The calvarium ap pears normal. The visualized paranasal sinuses and mastoid air cells are clear. Impression: No significant abnormality seen. Reviewed, dictated and finalized at location . Impression: No significant abnormality seen.
--- NOTE | ~2023-06-05 | XR_ITS ---
EXAMINATION: XR abdomen/kub 1V DATE: 06/15/2023 11:23 INDICATION: Hypoactive/absent bowel sounds. TECHNIQUE: A supine view of the abdomen was obtained. COMPARISON: CT abdomen and pelvis 06/06/2023 FINDINGS: There are no dilated loops of bowel. There is a large volume of stool in the colon. There i s a gastrostomy tube in expected position. Surgical clips in the right upper quadrant are likely from cholecystectomy. There are changes of vertebroplasty at 2 levels. IMPRESSION: 1. Nonobstructive bowel gas pattern. Reviewed, dictated and finalized at location B.
--- NOTE | ~2023-06-05 | XR_ITS ---
Upright portable view of the abdomen Clinical history: NG tube placement Findings: NG tube in satisfactory position. Bowel gas pattern is nonspecific. No evidence for obstruc tion or free air. No abnormal mass lesion or calcification is seen. Vertebroplasty cement is present at L1 and T8.. Impression: NG tube in satisfactory position. Reviewed, dictated and finalized at [facility]. Impression: NG tube in satisfactory position.
--- NOTE | 2023-06-05 12:18 | ECG_ITS ---
Measurements Intervals [place] Rate: 90 P: 51 FL: 129 QRS: 17 QRSD: 77 T: 39 QT: 360 QTc: 443 Interpretive Statements SINUS RHYTHM BORDERLINE ST-T WAVE ABNORMALITY- DIFFUSE LEADS BASELINE ARTIFACT- I, II, III, AVR, AVL, AVF, V1-V6 BORDERLINE ECG NO PREVIOUS ECG AVAILABLE FOR COMPARISON Electronically Signed On 06-05-2023 16:23:11 CDT by Kali Ureña D.O.
--- NOTE | 2023-06-05 12:19 | ED.GENADULT ---
HPI - General Adult General Chief complaint: Unspecified Stated complaint: hypoglycemic History of Present Illness HPI narrative: 72 year old female history of GERD, HTN, cholecystectomy presented with hypoglycemia. Per patient, she has been having epigastric and throat discomfort for the past 4 days, described as her typical GERD symptoms. The discomfort has caused her to have decreased oral intake. Today she felt whole body fatigue, so called EMS. With EMS, patient noted to have POC glucose 40s, started on d10 with repeat glucose 110s. She denied fevers/chills, nausea/vomiting, abdominal pain, dysuria, hematuria, cough, sick contacts. Past Medical History: HTN, GERD Past Surgical History: cholecystectomy Allergies: baclofen, contrast, cefuroxime Related Data Allergies Allergy/AdvReac Type Severity Reaction Status Date / Time baclofen Allergy Mild Unknown Verified 06/05/23 12:21 levofloxacin Allergy Mild FAST HR Verified 06/05/23 12:21 zolpidem Allergy Mild Anxiety Verified 06/05/23 12:21 CEFUROXIME AXETIL Allergy Mild Unknown Uncoded 06/05/23 12:21 Contrast Media Allergy Mild Flushing Uncoded 06/05/23 12:21 Review of Systems Review of Systems: See HPI [facility] Past Medical History Medical History History of COPD History of depression History of hypertension History of hypothyroidism Exam Narrative: General: Alert, calm and cooperative, no acute distress, phonating, sitting comfortably during visit, elderly, frail HEENT: Pupils equal round and reactive to light, extra ocular movements intact, no conjunctival injection, head atraumatic, neck supple without meningismus Cardiovascular: Regular rate and rhythm, no visible jugular venous distension Respiratory: Lungs clear to auscultation bilaterally, no wheezing/rales/rhonchi Abdominal: soft, non-tender, non-distended, no guarding, no rebound/peritoneal signs, no costovertebral tenderness to palpation Back: no midline tenderness to palpation, no step offs Extremities: No edema, palpable peripheral pulses, warm, well perfused, no tenderness to bilateral calves Neurological: Alert, moving all extremities symmetrically Course Vital Signs Vital signs: Vital Signs Temperature 97.6 F 06/05/23 12:08 Pulse Rate 93 06/05/23 12:08 Respiratory Rate 16 06/05/23 12:08 Blood Pressure 129/77 06/05/23 12:08 Pulse Oximetry 99 06/05/23 12:08 Oxygen Delivery Room Air 06/05/23 12:08 Temperature 97.6 F 06/05/23 12:08 Pulse Rate 104 H 06/05/23 13:47 Respiratory Rate 28 H 06/05/23 13:47 Blood Pressure 160/101 H 06/05/23 13:47 Pulse Oximetry 100 06/05/23 13:47 Oxygen Delivery Room Air 06/05/23 12:08 Medical Decision Making MDM Narrative Medical decision making narrative: 72 year old female history of GERD, HTN presented with decreased oral intake, hypoglycemia, and epigastric discomfort. Physical exam benign, sitting comfortably, elderly, frail, vitals stable. Differential diagnosis includes but not limited to: ACS vs cholecystitis vs pancreatitis vs UTI. Bloodwork reviewed, UA suggestive of UTI. Hypokalemia 3.3, potassium and magnesium repleted. IV fluids given, ceftriaxone IV given. History and exam suggestive of complicated UTI with hypoglycemia and electrolyte derangement. Case discussed with hospitalist. Given acute nature of presenting disease process and potential for decompensation, the patient would benefit from medical admission for further optimization and management. Vital Signs Vital Signs: Vital Signs Temperature 97.6 F 06/05/23 12:08 Pulse Rate 93 06/05/23 12:08 Respiratory Rate 16 06/05/23 12:08 Blood Pressure 129/77 06/05/23 12:08 Pulse Oximetry 99 06/05/23 12:08 Oxygen Delivery Room Air 06/05/23 12:08 Temperature 97.6 F 06/05/23 12:08 Pulse Rate 104 H 06/05/23 13:47 Respiratory Rate 28 H 06/05/23 13:47 Blood Pressure 160/101 H 06/05
[2023-06-05 12:20] LABS: Glucose Point of Care 113 mg/dl (65-105)
[2023-06-05] MEDS: MAG HYDROX/AL HYDROX/SIMETH 30 ML UDC PO (12:32)
[2023-06-05] MEDS: FAMOTIDINE 20 MG/2 ML VIAL IV PUSH ×2 (12:32→20:05)
[2023-06-05 12:43] LABS: Basophils Percent Auto 0.4 % (0.2-1.2); Eosinophils Absolute Auto 0.1 K/mm3 (0-0.3); Eosinophils Percent Auto 1.1 % (0-4.4); Hematocrit 41.8 % (37.0-47.0); Hemoglobin 13.7 g/dL (12.0-15.0); Immature Granulocyte Absolute 0.01 K/mm3 (0.00-0.031); Immature Granulocyte Percent A 0.2 % (0-0.5); Lymphocytes Absolute Auto 1.11 K/mm3 (0.9-3.2); Lymphocytes Percent Auto 23.3 % (18.3-44.2); Mean Corpuscular HGB Conc 32.8 g/dl (32-36); Mean Corpuscular Hemoglobin 31.8 pg (26-34); Mean Platelet Volume 11.3 fl (7.4-10.4); Monocytes Absolute Auto 0.3 K/mm3 (0.1-0.6); Monocytes Percent Auto 6.7 % (2.6-8.5); Neutrophils Absolute Auto 3.3 K/mm3 (1.3-6.7); Neutrophils Percent Auto 68.3 % (45.5-73.1); Platelet Count Result 197 k/mm3 (150-375); Red Blood Count 4.31 M/mm3 (4.2-5.4); Red Cell Distribution Width 18.8 % (11.5-14.5); White Blood Count 4.8 K/mm3 (4.5-10.0)
[2023-06-05 12:55] LABS: Alanine Aminotransferase 24 U/L (6-35); Albumin Level 2.8 g/dL (3.5-5.1); Alkaline Phosphatase 106 U/L (38-126); Anion Gap 14 mmol/L (8-16); Aspartate Amino Transferase 76 U/L (14-36); Bilirubin Direct 0.1 mg/dL (0-0.3); Bilirubin,Total 2.1 mg/dL (0.2-1.3); Blood Urea Nitrogen 17 mg/dL (7-17); Calcium 8.3 mg/dL (8.4-10.2); Carbon Dioxide 25 mmol/L (22-30); Chloride 97 mmol/L (98-107); Estimated CRCL calculation 33 ml/min; Estimated Glomerular Filt Rate 55; Glucose 160 mg/dL (65-110); Lactic Acid Reflex 1.8 mmol/L (0.7-2.0); Lipase 58 U/L (23-300); Potassium 3.3 mmol/L (3.4-5.0); Sodium 136 mmol/L (137-145)
[2023-06-05 13:07] LABS: NT Pro B Type Natriuretic Pept 715 pg/mL (19.9-100); Troponin I < 0.012 ng/mL (0.000-0.034)
[2023-06-05] MEDS: POTASSIUM CHLORIDE 20 MEQ ER TABLET 40 MEQ PO (13:30)
[2023-06-05] MEDS: MAGNESIUM SULF 2 GM/WATER 50ML 2 GM/50 ML BAG IVPB (13:30)
[2023-06-05] MEDS: LACTATED RINGERS 1,000 ML 999 ML IV CONT (13:30)
[2023-06-05 13:45] LABS: Appearance Urine Cloudy (Clear); Bacteria Urine 4+ /hpf; Bilirubin Urine 2+ (Negative); Blood Urine Negative (Negative); Color Urine Dark Yellow (Yellow); Glucose Urine UA 1+ mg/dL (Negative); Ketones Urine 1+ mg/dL (Negative); Leukocyte Esterase Ur 2+ LEU/UL (Negative); Mucus Urine Present /lpf; Nitrate Urine Positive (Negative); Non Pathogenic Casts >20; Protein Urine 2+ mg/dL (Negative); RBC Urine 51-100 /hpf (0-2); Specific Grav Ur 1.028 (1.001-1.035); Squamous Epithelial Cell Urine Few /hpf (Few); WBC Urine 21-50 /hpf; pH Urine 5.5 (5.0-9.0)
[2023-06-05 13:47] LABS: Add Urine Microscopic? YES
[2023-06-05 15:50] LABS: Glucose Point of Care 55 mg/dl (65-105)
[2023-06-05] MEDS: DEXTROSE 50% 25 GM/50 ML SYRINGE IV PUSH (15:51)
--- NOTE | 2023-06-05 16:46 | PM.IMHP ---
H&P: HPI History of Present Illness Date/Time: 06/05/23 16:46 Chief Complaint: Hypoglycemic event Narrative: This is a 72-year-old female patient who has a history of GERD, hypertension, and she has lost 25 lb over the last few months. The patient stated that she is been having severe acid reflux and has had a poor appetite. She is on history of GERD. The patient stated that she felt fatigued today and therefore activated EMS her point of care blood sugar was 4 in the 40s. She was given D10 and repeat glucose is 110. She denies any nausea vomiting. She denies any fever chills. Potassium is 3.3. Urine is cloudy and has positive nitrates. Leukocyte esterase 2+ urine bilirubin 2+ wbc's 21-50. Urine bacteria is 4+. Chest x-ray was read as no acute cardiopulmonary disease. The patient was given IV Pepcid, magnesium, potassium d 50 and Rocephin. The patient is being admitted to observation status on the date of service 06/05/2023. Review of Systems Review of Systems: All systems reviewed & are unremarkable except as noted in HPI and below Constitutional: Constitutional: Reports as per HPI and Reports no additional constitutional complaints Eyes: Eyes: Reports as per HPI and Reports no additional eye complaints ENT: Reports system reviewed and no additional complaints, except as documented and Reports Normal hearing present Cardiovascular: Cardiovascular: Reports no additional cardiovascular complaints Respiratory: Respiratory: Reports no additional respiratory complaints and Reports no additional respiratory complaints Gastrointestinal: Gastrointestinal: Reports as per HPI and Reports no additional gastrointestinal complaints Musculoskeletal: Musculoskeletal: Reports no additional musculoskeletal complaints Integumentary/Breasts: Skin/Breast: Reports system reviewed and no additional complaints, except as docu and Reports as per HPI Neurologic: Reports system reviewed and no additional complaints, except as documented, Reports as per HPI and Reports Normal hearing present Psychiatric: Psychiatric: Reports no additional psychiatric complaints and Reports as per HPI Endocrine: Endocrine: Reports no additional endocrine complaints Hematologic/Lymphatic: Hematologic/Lymphatic: Reports no additional hematologic/lymphatic complaints Allergic/Immunologic: Allergic/Immunologic: Reports no additional allergic/immunologic complaints [facility] Past Medical History Medical History (Updated 06/05/23 @ 18:01 by Maricruz Ulloa NP) Chronic GERD COPD (chronic obstructive pulmonary disease) CVA (cerebral vascular accident) Depression with anxiety Renee's disease Hemorrhagic eye History of COPD History of depression History of hypertension History of hypothyroidism Hypertension Hypokalemia Hypothyroidism Irritable bowel syndrome Mixed Stress incontinence Weight loss Surgical History Surgical History H/O: hysterectomy History of cataract extraction with lens replacement Hx of cholecystectomy Previous back surgery X2 Family History Family History (Updated 06/05/23 @ 17:11 by Maricruz Ulloa NP) Other Cancer Mother Heart disease Father Thyroid disease Sibling Diabetes mellitus Social History Social History (Updated 06/05/23 @ 17:12 by Maricruz Ulloa NP) Social History: The patient lives home alone. She has 2 sons. She is . 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 Her son Justice is her durable power bankruptcy attorney for healthcare. The patient is a former smoker. She does not use any alcohol or illicit drugs. Code status DNR Smoking status: Former smoker Tobacco type: cigarettes Alcohol intake: never Substance use: never Lack of Transportation: YES Lack of Food: Never True Current Housing: I Have Housing Concerned About Future Housing: YES Difficulty Paying Gas/Electric Bills: YES Difficulty P
[2023-06-05] MEDS: carvediloL 6.25 MG TABLET PO (18:00)
[2023-06-05] MEDS: HYDROcodone/acetaminophen (*CRX) 7.5-325 MG TABLET 0.5 TAB PO (18:01)
[2023-06-05] MEDS: DEXTROSE 5% 1,000 ML 1,000 ML 100 ML IV CONT (18:02)
[2023-06-05 18:38] LABS: Glucose Point of Care 119 mg/dl (65-105)
[2023-06-05 19:55] LABS: Glucose Point of Care 102 mg/dl (65-105)
[2023-06-05] MEDS: MIRTAZAPINE 30 MG TABLET PO (20:05)
[2023-06-05 21:53] LABS: Cortisol Baseline 8.12 ug/dL
[2023-06-05 22:07] LABS: Cortisol 30 Minute 8.23 ug/dL
[2023-06-05 22:42] LABS: Cortisol 60 Minute 9.82 ug/dL
[2023-06-05 23:50] LABS: Glucose Point of Care 117 mg/dl (65-105)
--- NOTE | 2023-06-05 23:56 | WPDGICN ---
Assessment and Plan Assessment and plan (1) Dysphagia: Code(s): R13.10 - Dysphagia, unspecified Status: Acute Assessment and Plan: she states that even pills and water are difficult to get down. Consequently she is eating less and less. (2) Hypokalemia: Code(s): E87.6 - Hypokalemia Status: Acute Assessment and Plan: Potassium is 3.3 this morning (3) Hypoglycemia: Code(s): E16.2 - Hypoglycemia, unspecified Status: Acute Assessment and Plan: Blood sugar was 40 when paramedics picked her up (4) Weight loss: Code(s): R63.4 - Abnormal weight loss Status: Acute Assessment and Plan: she has gradually lost at least 25 lb (5) Chronic GERD: Code(s): K21.9 - Gastro-esophageal reflux disease without esophagitis Status: Acute Assessment and Plan: rather than heartburn, she states that it has nausea that is her main symptom as well as the fact that is difficult to swallow. GI Consult Note Consult date/time: 06/05/23 23:56 HPI: Ade Rehman is a 72 year old female who I am asked to see because of weight loss and refractory reflux symptoms. She has a long history of history of GERD, also hypertension, and she has lost 25 lb over the last few months.? The patient stated that she is been having severe acid reflux and has had a poor appetite.? She is on history of GERD.? The patient stated that she felt fatigued today and therefore activated EMS her point of care blood sugar was 4 in the 40s. She states she has had acid reflux for at least 20 some years and has been on various different medications. Her main symptom is not heartburn some much as nausea. Particularly the last several months. She has a difficult time eating and swallowing. She is not sure that food actually gets stuck ,but it seems to disagree with her. Lately however pills and even water do not want to go down. CT scan shows: 1. Large volume of stool in the right colon. 2. T12 compression fracture, new since the comparison examination. 3. Chronic burst fractures of L3 and L4 with worsening loss of vertebral body height at L4 since the comparison MRI. Review of Systems Review of Systems: All systems reviewed & are unremarkable except as noted in HPI and below PMFSH Past Medical History Medical History Chronic GERD COPD (chronic obstructive pulmonary disease) CVA (cerebral vascular accident) Depression with anxiety Renee's disease Hemorrhagic eye History of COPD History of depression History of hypertension History of hypothyroidism Hypertension Hypokalemia Hypothyroidism Irritable bowel syndrome Mixed Stress incontinence Weight loss Surgical History Surgical History H/O: hysterectomy History of cataract extraction with lens replacement Hx of cholecystectomy Previous back surgery X2 Family History Family History Other Cancer Mother Heart disease Father Thyroid disease Sibling Diabetes mellitus Social History Social History Social History: The patient lives home alone. She has 2 sons. She is . 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 Her son Justice is her durable power corporate associate attorney for healthcare. The patient is a former smoker. She does not use any alcohol or illicit drugs. Code status DNR Smoking status: Former smoker Tobacco type: cigarettes Alcohol intake: never Substance use: never Lack of Transportation: YES Lack of Food: Never True Current Housing: I Have Housing Concerned About Future Housing: YES Difficulty Paying Gas/Electric Bills: YES Difficulty Paying for Meds: YES Currently Unemployed: No Education: High School Diploma/GED Difficulty w/ Child
[2023-06-06] VITALS (14 sets, daily range): BP systolic 86–149; BP diastolic 53–86; PULSE 87–108; RESP 16–22; TEMP 35.7–36.9; O2SAT 95–100
--- NOTE | 2023-06-06 03:17 | PC.NURSE ---
pt is a&ox1 unable to sign consent for GI testing at this time.
[2023-06-06 03:28] LABS: Glucose Point of Care 143 mg/dl (65-105)
[2023-06-06] MEDS: DEXTROSE 5% 1,000 ML 1,000 ML 100 ML IV CONT (04:49)
[2023-06-06] MEDS: LEVOTHYROXINE SODIUM 50 MCG TABLET PO (05:35)
[2023-06-06 06:37] LABS: Basophils Percent Auto 0.7 % (0.2-1.2); Eosinophils Absolute Auto 0.1 K/mm3 (0-0.3); Eosinophils Percent Auto 2.2 % (0-4.4); Hematocrit 38.8 % (37.0-47.0); Immature Granulocyte Absolute 0.02 K/mm3 (0.00-0.031); Immature Granulocyte Percent A 0.4 % (0-0.5); Lymphocytes Absolute Auto 0.95 K/mm3 (0.9-3.2); Lymphocytes Percent Auto 17.5 % (18.3-44.2); Mean Corpuscular HGB Conc 33.5 g/dl (32-36); Mean Corpuscular Hemoglobin 32.2 pg (26-34); Mean Platelet Volume 11.2 fl (7.4-10.4); Monocytes Absolute Auto 0.6 K/mm3 (0.1-0.6); Monocytes Percent Auto 10.5 % (2.6-8.5); Neutrophils Absolute Auto 3.7 K/mm3 (1.3-6.7); Neutrophils Percent Auto 68.7 % (45.5-73.1); Platelet Count Result 193 k/mm3 (150-375); Red Blood Count 4.04 M/mm3 (4.2-5.4); Red Cell Distribution Width 18.8 % (11.5-14.5); White Blood Count 5.4 K/mm3 (4.5-10.0)
[2023-06-06 06:46] LABS: Lactic Acid Reflex 3.5 mmol/L (0.7-2.0)
[2023-06-06 06:47] LABS: Alanine Aminotransferase 25 U/L (6-35); Albumin Level 2.5 g/dL (3.5-5.1); Alkaline Phosphatase 105 U/L (38-126); Anion Gap 7 mmol/L (8-16); Aspartate Amino Transferase 75 U/L (14-36); Bilirubin,Total 1.2 mg/dL (0.2-1.3); Blood Urea Nitrogen 14 mg/dL (7-17); Calcium 8.1 mg/dL (8.4-10.2); Carbon Dioxide 30 mmol/L (22-30); Chloride 96 mmol/L (98-107); Estimated CRCL calculation 39 ml/min; Estimated Glomerular Filt Rate > 60; Glucose 124 mg/dL (65-110); Magnesium 2.2 mg/dL (1.6-2.3); Potassium 3.2 mmol/L (3.4-5.0); Sodium 133 mmol/L (137-145)
--- NOTE | 2023-06-06 06:49 | PC.NURSE ---
alterative numbers for Justice Connor work: [phone] and Michelle [phone]
[2023-06-06 08:14] LABS: Free T4 Free Thyroxine Reflex 1.35 ng/dL (0.78-2.19)
[2023-06-06 08:20] LABS: Glucose Point of Care 108 mg/dl (65-105)
[2023-06-06] MEDS: FAMOTIDINE 20 MG/2 ML VIAL IV PUSH ×2 (08:34→20:40)
[2023-06-06 09:24] LABS: Total Triiodothyronine (T3) 0.54 NG/ML (0.97-1.69)
[2023-06-06 09:28] LABS: Reflex Lactic Acid Yes or No Add Lactic
[2023-06-06] MEDS: POTASSIUM CHLORIDE INJ 40 MEQ in SODIUM CHLORIDE 0.9% IV 500 ML 130 MEQ IVPB (09:32)
[2023-06-06] MEDS: PANTOPRAZOLE SODIUM IV 40 MG VIAL IV PUSH ×2 (09:38→20:40)
[2023-06-06 09:41] LABS: Phosphorus 1.4 mg/dL (2.5-4.5)
[2023-06-06 09:59] LABS: Lactic Acid 2.7 mmol/L (0.7-2.0)
[2023-06-06] MEDS: LACTATED RINGERS 1,000 ML 150 ML IV CONT (10:31)
[2023-06-06 10:34] LABS: Glucose Point of Care 89 mg/dl (65-105)
--- NOTE | 2023-06-06 10:51 | WPDANESEPPF ---
Anes - Initial Pre Proc Eval Procedure: Operation Date: 06/06/23 12:30 Proposed Procedures p Esophagogastroduodenoscopy - William Mckeon MD Date/Time: 06/06/23 10:51 Surgeon: Francisco Alatorre MD Pre Op Diagnosis: Hypoglycemia,UTI,Decreased Oral Intake Patient Data Age: 72 Gender: F Height: 1.52 m Weight: 42.9 kg Last Vital Signs Temp 36.1 C L 06/06/23 10:26 Pulse 100 06/06/23 10:26 Resp 16 06/06/23 10:26 BP 136/72 06/06/23 10:26 Pulse Ox 95 06/06/23 10:26 O2 Del Method Room Air 06/06/23 10:26 Allergies Allergy/AdvReac Type Severity Reaction Status Date / Time baclofen Allergy Mild Unknown Verified 06/06/23 10:21 cefuroxime Allergy Mild Unknown Verified 06/06/23 10:21 Iodinated Contrast Media Allergy Mild Flushing Verified 06/06/23 10:21 levofloxacin Allergy Mild FAST HR Verified 06/06/23 10:21 zolpidem Allergy Mild Anxiety Verified 06/06/23 10:21 Home Medications Medication Instructions Recorded Confirmed Type ascorbic acid (vitamin C) 250 mg 250 mg PO DAILY 06/05/23 06/05/23 History chewable tablet carvedilol 6.25 mg tablet 6.25 mg PO BID 06/05/23 06/05/23 History cholecalciferol (vitamin D3) 250 250 mcg PO DAILY 06/05/23 06/05/23 History mcg (10,000 unit) tablet cyclobenzaprine 10 mg tablet 10 mg PO TID 06/05/23 06/05/23 History hydrocodone 7.5 mg-acetaminophen 0.5 tablet PO BID 06/05/23 06/05/23 History 325 mg tablet levothyroxine 50 mcg tablet 50 mcg PO DAILY 06/05/23 06/05/23 History (Unithroid) mirtazapine 30 mg tablet 30 mg PO HS 06/05/23 06/05/23 History multivitamin 1 tablet PO DAILY 06/05/23 06/05/23 History ondansetron HCl 8 mg tablet 8 mg PO Q8H 06/05/23 06/05/23 History pantoprazole 40 mg tablet,delayed 40 mg PO BID 06/05/23 06/05/23 History release polyethylene glycol 400 0.25 % eye 1 drp ophthalmic (eye) BID PRN Dry 06/05/23 06/05/23 History gel drops Eyes potassium chloride 20 mEq 20 meq PO BID 06/05/23 06/05/23 History tablet,extended release(part/cryst) vitamin B complex (B 1 tablet PO DAILY 06/05/23 06/05/23 History Complex-Vitamin B12 tablet) Laboratory Tests 06/05/23 06/05/23 06/05/23 12:16 12:36 13:23 WBC 4.8 K/mm3 (4.5-10.0) RBC 4.31 M/mm3 (4.2-5.4) Hgb 13.7 g/dL (12.0-15.0) Hct 41.8 % (37.0-47.0) MCV 97.0 fl (80-100) MCH 31.8 pg (26-34) MCHC 32.8 g/dl (32-36) RDW 18.8 H % (11.5-14.5) Plt Count 197 k/mm3 (150-375) MPV 11.3 H fl (7.4-10.4) Immature Gran % (Auto) 0.2 % (0-0.5) Neut % (Auto) 68.3 % (45.5-73.1) Lymph % (Auto) 23.3 % (18.3-44.2) [place] % (Auto) 6.7 % (2.6-8.5) Eos % (Auto) 1.1 % (0-4.4) Baso % (Auto) 0.4 % (0.2-1.2) Lymph # (Auto) 1.11 K/mm3 (0.9-3.2) [place] # (Auto) 0.3 K/mm3 (0.1-0.6) Eos # (Auto) 0.1 K/mm3 (0-0.3) Baso # (Auto) 0.0 K/mm3 (0.0-0.1) Abs Immat Gran (auto) 0.01 K/mm3 (0.00-0.031) Absolute Neuts (auto) 3.3 K/mm3 (1.3-6.7) Absolute Nucleated RBC 0.0 K/mm3 (0.0-0.012) Nucleated RBC % 0.0 % (0.0-0.2) Sodium 136 L mmol/L (137-145) Potassium 3.3 L mmol/L (3.4-5.0) Chloride 97 L mmol/L (98-107) Carbon Dioxide 25 mmol/L (22-30) Anion Gap 14 mmol/L (8-16) BUN 17 mg/dL (7-17) Creatinine 1.00 mg/dL (0.7-1.0) Estim Creat Clear Calc 33 ml/min Estimated GFR 55 L (59 - ) Glucose 160 H mg/dL (65-110) POC Capillary Glucose 113 H mg/dl (65-105) Lactic Acid 1.8 mmol/L (0.7-2.0) Calcium 8.3 L mg/dL (8.4-10.2) Phosphorus Magnesium Total Bilirubin 2.1 H mg/dL (0.2-1.3) Direct Bilirubin 0.1 mg/dL (0-0.3) AST 76 H U/L (14-36
--- NOTE | 2023-06-06 11:27 | PCOTNOTE ---
Attempted to see pt. for occupational therapy evaluation. Pt. away from room at this time for testing. Following.
--- NOTE | 2023-06-06 12:03 | PCPTNOTE ---
On 06/06/23, the student, ELEONORA Nicole, provided care and completed [facility] documentation on this patient. I have reviewed the student's documentation and agree with the findings.
[2023-06-06 12:13] LABS: Glucose Point of Care 67 mg/dl (65-105)
--- NOTE | 2023-06-06 12:55 | PM.IMPN ---
Progress Note: A&P Assessment and Plan (1) Acute UTI: Code(s): N39.0 - Urinary tract infection, site not specified Status: Acute Assessment and Plan: Urinalysis highly indicative of urinary tract infection. Patient on Rocephin pending urine culture. Altered mental status with confusion thought to be exacerbated by urinary tract infection. (2) Dysphagia: Code(s): R13.10 - Dysphagia, unspecified Status: Acute Assessment and Plan: Patient has had 10 lb weight loss over the last couple due to decreased oral intake. She states that she sometimes feels like she is choking on something like there is a blockage. She is not vomiting. She is not coughing. EGD completed without significant structural findings to explain patient's symptoms. Barium swallow study was ordered, reported no problems with oral or pharyngeal stage but there appeared to be some delayed transit in the esophageal stage. Ordered soft bite size diet. (3) Hypoglycemia: Code(s): E16.2 - Hypoglycemia, unspecified Status: Acute Assessment and Plan: Patient with recurrent hypoglycemia on dextrose drip. IV access was lost so patient received IM glucagon. Labs drawn to assess for underlying cause of hypoglycemia. Normal pancreas imaging on CT. (4) Hypokalemia: Code(s): E87.6 - Hypokalemia Status: Acute Assessment and Plan: Potassium low thought to be related to decreased oral intake, IV and oral replacement ordered. (5) Acute hyponatremia: Code(s): E87.1 - Hypo-osmolality and hyponatremia Status: Acute Assessment and Plan: [place] to be exacerbated by 24 hours D5 continuous infusion and NPO diet. Changed IV fluids to LR/D5 and diet is ordered. (6) Hypertension: Code(s): I10 - Essential (primary) hypertension Status: Acute Assessment and Plan: One episode of low blood pressure after patient lost IV access. 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 Labs in process to help determine cause. Replace electrolytes judiciously. Time Spent With Patient Time with patient: Greater than 35 minutes Subjective Date/time seen: 06/06/23 13:30 Interval history: 06/06 Rounding: Met with patient after EGD. She was seated upright in her bed. Patient is awake and alert but confused. Family at bedside states that patient has been confused for a couple of days called family overnight last night stating she was in a hotel in wanting to speak to her sister who had a few years ago. Family notes that once prior patient had acute confusion like this on top of her baseline dementia when she had a urinary tract infection. Patient denies any pain or fever. She notes that she has not been able to swallow her food, medication or drink very well recently. Patient complaining of wet dressing around her arm and burning at the IV site of receiving medications. Review of records and discussion with family, patient is having recurrent hypoglycemia of unknown cause, requiring IV dextrose infusion. Diet pending swallow study. IV site infiltrated. Notified nursing staff of this finding and requested assistance from Boiler Operator Helper to obtain prompt access. IM glucagon ordered in the meantime. Review of Systems Review of Systems: All systems reviewed & are unremarkable except as noted in HPI
--- NOTE | 2023-06-06 13:31 | PC.NURSE ---
Hospitalist, Se Oconnor, demanded that I forgo my lunch so that I could contact Kelsie Carbajal to place an IV as pt's IV had just infiltrated. The subwarehouse supervisor, Kevon England, was contacted in an attempt to place an IV but was not able. Kevon and I both contacted Kelsie Cabrajal to regarding the need for the IV at Se's order. Kelsie informed me that she would come place an IV o the pt. Pt has been to CT/radiology, and the GI lab for an EGD where her IV was patent until approximately 1315. Pt is leaving at this moment (1335 06/06/24) to radiology for a barium swallow study. Hospitalist, Se Oconnor, was made aware of this progress as well as the need for hypoglycemic protocols, specifically oral glucophage, et al., to be ordered as admitting hospitalist Maricruz Ulloa did not order them despite being made aware that pt's glucose levels were unstable and continually dropping to critical levels.
[2023-06-06 14:17] LABS: Glucose Point of Care 74 mg/dl (65-105)
--- NOTE | 2023-06-06 14:17 | PCSTNOTE ---
Modified barium swallow study. Patient self reports recent choking episodes on a bite of dumpling and on pills. Stated that she thought her airway was blocked but it cleared. Trials of thin barium were given by spoon and cup, pureed by spoon, mixed consistency by spoon, and solid by fingers. Oral preparatory, oral, pharygeal stages of swallow all within functional limits. It appeared that a small amount of thin liquid collected in her esophagus and cleared slowly. This information has been reported to her physician. Recommendation: soft and bite sized diet, thin liquids. No further speech therapy is recommended. Thank you for the referral of this patient.
[2023-06-06] MEDS: DEXTROSE 5%/LACTATED RINGERS 1,000 ML 100 ML IV CONT (14:22)
[2023-06-06] MEDS: CYCLOBENZAPRINE HCL 10 MG TABLET PO ×2 (14:23→16:14)
[2023-06-06] MEDS: GLUCAGON FOR INJ 1 MG VIAL IM (14:24)
[2023-06-06 14:57] LABS: Albumin Level 2.6 g/dL (3.5-5.1); Anion Gap 3 mmol/L (8-16); Blood Urea Nitrogen 10 mg/dL (7-17); Calcium 8.1 mg/dL (8.4-10.2); Carbon Dioxide 29 mmol/L (22-30); Chloride 99 mmol/L (98-107); Estimated CRCL calculation 44 ml/min; Estimated Glomerular Filt Rate > 60; Glucose 86 mg/dL (65-110); Phosphorus 1.5 mg/dL (2.5-4.5); Sodium 131 mmol/L (137-145)
[2023-06-06 15:03] LABS: Potassium 3.2 mmol/L (3.4-5.0)
--- NOTE | 2023-06-06 15:05 | PCPTNOTE ---
On 06/06/23, the student, ELEONORA Nicole, provided care and completed [facility] documentation on this patient. I have reviewed the student's documentation and agree with the findings.
--- NOTE | 2023-06-06 15:11 | PCCCNOTE ---
On 06/06/23, the student, [Monika Briones], provided care and completed [facility] documentation on this patient. I have reviewed the student's documentation and agree with the findings.
[2023-06-06] MEDS: POTASSIUM CHLORIDE 20 MEQ ER TABLET PO (16:15)
[2023-06-06] MEDS: POTASSIUM/PHOSPHORUS/SODIUM 1.5 GM PACKET 2 PACKET PO (16:15)
[2023-06-06 16:29] LABS: Glucose Point of Care 99 mg/dl (65-105)
[2023-06-06 20:08] LABS: Glucose Point of Care 107 mg/dl (65-105)
[2023-06-06] MEDS: MIRTAZAPINE 30 MG TABLET PO (20:40)
[2023-06-06] MEDS: POTASSIUM PHOS,M-BASIC-D-BASIC 40 MMOL in SODIUM CHLORIDE 0.9% IV 250 ML 43.89 MMOL IVPB (20:40)
[2023-06-06 21:43] LABS: Hemoglobin A1C 4.2 % (<5.7)
[2023-06-07] VITALS (57 sets, daily range): BP systolic 97–146; BP diastolic 39–96; PULSE 95–118; RESP 16–20; TEMP 36.1–37.1; O2SAT 93–100; BMI 18.4
[2023-06-07] MEDS: DEXTROSE 5%/LACTATED RINGERS 1,000 ML 100 ML IV CONT ×3 (00:52→21:15)
[2023-06-07 01:03] LABS: Glucose Point of Care 73 mg/dl (65-105)
[2023-06-07 05:53] LABS: Glucose Point of Care 80 mg/dl (65-105)
[2023-06-07] MEDS: ENOXAPARIN 40 MG/0.4 ML SYRINGE SUB-Q (09:13)
[2023-06-07] MEDS: PANTOPRAZOLE SODIUM IV 40 MG VIAL IV PUSH ×2 (09:14→21:13)
[2023-06-07] MEDS: FAMOTIDINE 20 MG/2 ML VIAL IV PUSH ×2 (09:14→21:14)
[2023-06-07] MEDS: CHOLECALCIFEROL 1,000 UNITS TABLET 10000 UNITS PO (09:14)
[2023-06-07] MEDS: ASCORBIC ACID 250 MG TABLET PO (09:15)
[2023-06-07] MEDS: MULTIVITAMINS THERAPEUTIC TAB (*BKC) 1 TABLET PO (09:15)
[2023-06-07] MEDS: VITAMIN B COMPLEX CAPSULE 1 CAP PO (09:15)
[2023-06-07] MEDS: CYCLOBENZAPRINE HCL 10 MG TABLET PO ×3 (09:16→18:01)
--- NOTE | 2023-06-07 09:58 | PM.IMPN ---
Progress Note: A&P Assessment and Plan (1) Problems with swallowing: Code(s): R13.10 - Dysphagia, unspecified Status: Acute Assessment and Plan: EGD normal. Barium swallow with normal oral and pharyngeal function but delayed mobility through esophagus. 06/07 NG tube ordered with business systems architect consult for tube feeds to attempt to get patient off IV dextrose fluids. (2) UTI (urinary tract infection): Code(s): N39.0 - Urinary tract infection, site not specified Status: Acute Assessment and Plan: No fever, normal WBC, likely contributory to altered mentation and possibly related to hypoglycemia. Continue IV Rocephin pending urine cultures. (3) Hypoglycemia: Code(s): E16.2 - Hypoglycemia, unspecified Status: Acute Assessment and Plan: Stable on LR/D5 at 100 mL/hr. Inserting NG tube for tube feeding supplementation to improve calorie intake in hopes to stabilize levels and get off IV fluids. Insulin testing has been sent. CT abdomen with normal pancreas findings. CT Brain normal. Patient not a known diabetic and no suspected overdose of insulin or medications. (4) Acute hyponatremia: Code(s): E87.1 - Hypo-osmolality and hyponatremia Status: Acute Assessment and Plan: Slowly improved to normal level on LR/D5 rather than straight D5. (5) Hypokalemia: Code(s): E87.6 - Hypokalemia Status: Acute Assessment and Plan: Improved to 4.5 using IV potassium phosphate on 06/06 for replacement. (6) NAFLD (nonalcoholic fatty liver disease): Code(s): K76.0 - Fatty (change of) liver, not elsewhere classified Status: Acute Assessment and Plan: History of NAFLD. CT findings of diffuse hepatosteatosis and findings of ascities. No peritoneal signs on abdomen assessment. Mild transaminitis but no fulminant failure. 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 Increased levothyroxine supplementation. Plan Supplement caloric intake with tube feeds. Wean from IV fluids with watch on Na, K, Phos and Mag. Plan SNF discharge for rehab, possible [place] [facility]. Time Spent With Patient Time with patient: Greater than 35 minutes Subjective Date/time seen: 06/07/23 14:00 Interval history: 06/06 Rounding: Met with patient after EGD. She was seated upright in her bed. Patient is awake and alert but confused. Family at bedside states that patient has been confused for a couple of days called family overnight last night stating she was in a hotel in wanting to speak to her sister who had a few years ago. Family notes that once prior patient had acute confusion like this on top of her baseline dementia when she had a urinary tract infection. Patient denies any pain or fever. She notes that she has not been able to swallow her food, medication or drink very well recently. Patient complaining of wet dressing around her arm and burning at the IV site of receiving medications. Review of records and discussion with family, patient is having recurrent hypoglycemia of unknown cause, requiring IV dextrose infusion. Diet pending swallow study. IV site infiltrated. Notified nursing staff of this finding and requested assistance from Tape Weaver to obtain prompt access. IM glucagon ordered in the meantime. 06/07 Rounding: Patient awake but confused, possibly more coherent today. She is still not eating well, still having trouble swallowing, refused oral potassium. Tech fed patient lunch and she only ate some mashed potatoes and a little to drink. Patient still on IV fluids with dextrose. Albumin given due to low blood pressure. Review of Systems Review of Systems: All systems revi
[2023-06-07 10:47] LABS: Glucose Point of Care 78 mg/dl (65-105)
--- NOTE | 2023-06-07 11:10 | PCPTNOTE ---
Attempted PT treatment, pt refused stating she was too tired and would like to stay in bed. Therapist attempted to encourage pt to sit up in chair for lunch, but pt continued to refuse. RN aware.
[2023-06-07 11:45] LABS: Basophils Absolute Auto 0.1 K/mm3 (0.0-0.1); Basophils Percent Auto 0.9 % (0.2-1.2); Eosinophils Absolute Auto 0.2 K/mm3 (0-0.3); Eosinophils Percent Auto 3.5 % (0-4.4); Hematocrit 36.7 % (37.0-47.0); Hemoglobin 12.2 g/dL (12.0-15.0); Immature Granulocyte Absolute 0.02 K/mm3 (0.00-0.031); Immature Granulocyte Percent A 0.4 % (0-0.5); Lymphocytes Absolute Auto 1.07 K/mm3 (0.9-3.2); Lymphocytes Percent Auto 19.6 % (18.3-44.2); Mean Corpuscular HGB Conc 33.2 g/dl (32-36); Mean Corpuscular Hemoglobin 32.4 pg (26-34); Mean Corpuscular Volume 97.3 fl (80-100); Mean Platelet Volume 10.8 fl (7.4-10.4); Monocytes Absolute Auto 0.6 K/mm3 (0.1-0.6); Monocytes Percent Auto 11.7 % (2.6-8.5); Neutrophils Absolute Auto 3.5 K/mm3 (1.3-6.7); Neutrophils Percent Auto 63.9 % (45.5-73.1); Platelet Count Result 176 k/mm3 (150-375); Red Blood Count 3.77 M/mm3 (4.2-5.4); Red Cell Distribution Width 19.6 % (11.5-14.5); White Blood Count 5.5 K/mm3 (4.5-10.0)
[2023-06-07 11:55] LABS: Alanine Aminotransferase 30 U/L (6-35); Albumin Level 2.3 g/dL (3.5-5.1); Alkaline Phosphatase 98 U/L (38-126); Anion Gap 4 mmol/L (8-16); Aspartate Amino Transferase 122 U/L (14-36); Bilirubin,Total 1.4 mg/dL (0.2-1.3); Blood Urea Nitrogen 5 mg/dL (7-17); Calcium 7.9 mg/dL (8.4-10.2); Carbon Dioxide 29 mmol/L (22-30); Chloride 104 mmol/L (98-107); Estimated CRCL calculation 50 ml/min; Estimated Glomerular Filt Rate > 60; Glucose 94 mg/dL (65-110); Potassium 4.5 mmol/L (3.4-5.0); Sodium 137 mmol/L (137-145)
[2023-06-07 11:59] LABS: Glucose Point of Care 71 mg/dl (65-105)
[2023-06-07] MEDS: ALBUMIN HUMAN 5% 25 GM/500 ML BTL IV CONT (12:04)
--- NOTE | 2023-06-07 14:44 | PCDIET ---
Orders for a supplemental tube feeding recommendation. Recommend to use Jevity 1.5 @ a goal rate of 35ml/hr continuous, to provide 1155kcals, 49g protein, 585ml fluid over 22 hrs. This meets 75% of estimated needs.
[2023-06-07] MEDS: BENZOCAINE (*SP) 60 ML SPRAY CAN (HURRICAINE) 1 SPRAY MUCOUS MEM (15:29)
[2023-06-07] MEDS: LIDOCAINE HCL 2% VISC SOLN 15 ML UDC PO (15:29)
[2023-06-07 17:38] LABS: Glucose Point of Care 125 mg/dl (65-105)
[2023-06-07 20:31] LABS: Glucose Point of Care 93 mg/dl (65-105)
[2023-06-07] MEDS: MIRTAZAPINE 30 MG TABLET PO (21:14)
[2023-06-07] MEDS: HYDROcodone/acetaminophen (*CRX) 7.5-325 MG TABLET 0.5 TAB PO (21:14)
[2023-06-08] VITALS (12 sets, daily range): BP systolic 110–152; BP diastolic 52–97; PULSE 85–119; RESP 12–20; TEMP 36.1–36.6; O2SAT 96–100
[2023-06-08 00:08] LABS: Glucose Point of Care 116 mg/dl (65-105)
[2023-06-08 04:57] LABS: Basophils Percent Auto 0.6 % (0.2-1.2); Eosinophils Absolute Auto 0.2 K/mm3 (0-0.3); Eosinophils Percent Auto 3.6 % (0-4.4); Hematocrit 36.3 % (37.0-47.0); Hemoglobin 12.1 g/dL (12.0-15.0); Immature Granulocyte Absolute 0.02 K/mm3 (0.00-0.031); Immature Granulocyte Percent A 0.4 % (0-0.5); Lymphocytes Absolute Auto 0.89 K/mm3 (0.9-3.2); Lymphocytes Percent Auto 17.1 % (18.3-44.2); Mean Corpuscular HGB Conc 33.3 g/dl (32-36); Mean Corpuscular Hemoglobin 32.4 pg (26-34); Mean Corpuscular Volume 97.3 fl (80-100); Monocytes Absolute Auto 0.6 K/mm3 (0.1-0.6); Monocytes Percent Auto 11.3 % (2.6-8.5); Neutrophils Absolute Auto 3.5 K/mm3 (1.3-6.7); Platelet Count Result 152 k/mm3 (150-375); Red Blood Count 3.73 M/mm3 (4.2-5.4); Red Cell Distribution Width 19.1 % (11.5-14.5); White Blood Count 5.2 K/mm3 (4.5-10.0)
[2023-06-08 05:12] LABS: Alanine Aminotransferase 35 U/L (6-35); Albumin Level 3.1 g/dL (3.5-5.1); Alkaline Phosphatase 106 U/L (38-126); Anion Gap 7 mmol/L (8-16); Aspartate Amino Transferase 137 U/L (14-36); Blood Urea Nitrogen 3 mg/dL (7-17); Calcium 8.5 mg/dL (8.4-10.2); Carbon Dioxide 30 mmol/L (22-30); Chloride 100 mmol/L (98-107); Estimated CRCL calculation 58 ml/min; Estimated Glomerular Filt Rate > 60; Glucose 115 mg/dL (65-110); Magnesium 1.7 mg/dL (1.6-2.3); Phosphorus 2.8 mg/dL (2.5-4.5); Potassium 3.6 mmol/L (3.4-5.0); Sodium 137 mmol/L (137-145)
[2023-06-08 06:16] LABS: Glucose Point of Care 111 mg/dl (65-105)
[2023-06-08] MEDS: DEXTROSE 5%/LACTATED RINGERS 1,000 ML 100 ML IV CONT (06:29)
[2023-06-08] MEDS: LEVOTHYROXINE SODIUM 75 MCG TABLET PO (06:30)
[2023-06-08 08:19] LABS: Glucose Point of Care 115 mg/dl (65-105)
[2023-06-08] MEDS: CYCLOBENZAPRINE HCL 10 MG TABLET PO ×2 (09:11→13:58)
[2023-06-08] MEDS: ENOXAPARIN 40 MG/0.4 ML SYRINGE SUB-Q (09:11)
[2023-06-08] MEDS: MULTIVITAMINS THERAPEUTIC TAB (*BKC) 1 TABLET PO (09:11)
[2023-06-08] MEDS: ASCORBIC ACID 250 MG TABLET PO (09:11)
[2023-06-08] MEDS: PANTOPRAZOLE SODIUM IV 40 MG VIAL IV PUSH ×2 (09:11→21:42)
[2023-06-08] MEDS: VITAMIN B COMPLEX CAPSULE 1 CAP PO (09:12)
[2023-06-08] MEDS: CHOLECALCIFEROL 1,000 UNITS TABLET 10000 UNITS PO (09:12)
[2023-06-08] MEDS: POTASSIUM CHLORIDE 20 MEQ ER TABLET PO (09:12)
[2023-06-08] MEDS: FAMOTIDINE 20 MG/2 ML VIAL IV PUSH ×2 (09:12→21:42)
--- NOTE | 2023-06-08 09:13 | P.CDI_ITS ---
CDI Query Clarification Request BMI 18.5 Nutritional Diagnostic Statement Moderate protein calorie malnutrition related to inadequate energy intake as evidenced by noted significant weight loss of -22% x 6 months, poor po intake, and NFPE findings. Please refer to the comprehensive nutrition assessment for further information. Please clarify severity of protein calorie malnutrition if known: * Mild * Moderate * Severe * Other/ Unspecified <Meenakshi Coon RN - Last Filed: 06/08/23 09:18> Provider Comments Patient has moderate protein calorie malnutrition related to inadequate energy, Patient was placed on tub feeding <Francisco Alatorre MD - Last Filed: 06/23/23 07:31>
--- NOTE | 2023-06-08 10:02 | PCNFU ---
Nutrition Follow-Up Complete: Moderate protein calorie malnutrition related to inadequate energy intake as evidenced by noted significant wt loss of -22% x 6 months, poor po intake, and NFPE findings. PO intake 50% or greater for meals and supplements - Not meeting goal consistently Tolerance of tube feedings - Tolerating well Goal: Pt current nutrition is Vital High Protein Bolus 100 ml TID. Provided 300 kcal, 26 g protein, 250 ml free water; flush 30 ml q 4 h. Soft & bite sized level 6 regular diet, intakes 10-75% yesterday. Ensure Compact TID for additional 220 kcal and 9 g protein each. Nutrition recommendation: Modify tube feeding: Jevity 1.5 continuous @ goal rate 35 ml/h. Provides 115 kcal, 49 g protein, 585 ml free water. Flush 100 ml water QID for total 1185 ml free water. Start at 20 ml/h and advance 5 ml q 4 hours until goal is reached today. Last recorded weight is 42.9 kg. Bowel Motility: Last BM +1 06/07 Labs Reviewed: Hct 36.3, K+ 3.1, BUN 3, Cre 0.5, Glu 115 Meds Noted: Remeron, protonix Skin: WNL Additional Notes: Communication with Erika ARREGUIN re: tube feeding. Pt tolerating tube feeding but pulling at tubes. Oral intake is poor. Recommend starting continuous feedings instead of bolus for improved tolerance with increased volume. Monitor intake, wt, labs. Follow up in 3 days. Tuesday/Tuesday monitoring per policy
[2023-06-08 12:59] LABS: Glucose Point of Care 86 mg/dl (65-105)
--- NOTE | 2023-06-08 13:00 | PCOTNOTE ---
Attempted to see Patient for P.M. treatment session due to Patient having a rough morning and not having sleep the night before. Patient still having increased confusion, and per RN can get combative. Per RN, not appropriate this afternoon due to have getting her to settle down and sleep.
--- NOTE | 2023-06-08 13:15 | PCPTNOTE ---
Patient unable to be seen for PT this date. Per RN patient has been combative and advised not to see patient for therapy.
[2023-06-08 16:26] LABS: Glucose Point of Care 81 mg/dl (65-105)
--- NOTE | 2023-06-08 17:30 | WPDPN ---
Progress Note: A&P Assessment and Plan (1) Problems with swallowing: Code(s): R13.10 - Dysphagia, unspecified Status: Acute Assessment and Plan: EGD normal. Barium swallow with normal oral and pharyngeal function but delayed mobility through esophagus. 06/07 NG tube ordered with street cleaning equipment operator consult for tube feeds to attempt to get patient off IV dextrose fluids. 06/08 Rounding: Patient awake but confused, patient was retaining urine, Lay was placed, this improved patient confusion and more coherent today. She is still not eating well, still having trouble swallowing, refused oral potassium. Tech fed patient lunch and she only ate some mashed potatoes and a little to drink. Patient still on IV fluids with dextrose. Albumin given due to low blood pressure. today patient family is present in the room, discuss may bring food from home, if patient appetite does not improve, may consider PEG to supplement nutrients and calori and continue oral feeding, family will consider. (2) UTI (urinary tract infection): Code(s): N39.0 - Urinary tract infection, site not specified Status: Acute Assessment and Plan: No fever, normal WBC, likely contributory to altered mentation and possibly related to hypoglycemia. Continue IV Rocephin pending urine cultures. (3) Hypoglycemia: Code(s): E16.2 - Hypoglycemia, unspecified Status: Acute Assessment and Plan: Stable on LR/D5 at 100 mL/hr. Inserting NG tube for tube feeding supplementation to improve calorie intake in hopes to stabilize levels and get off IV fluids. Insulin testing has been sent. CT abdomen with normal pancreas findings. CT Brain normal. Patient not a known diabetic and no suspected overdose of insulin or medications. (4) Acute hyponatremia: Code(s): E87.1 - Hypo-osmolality and hyponatremia Status: Acute Assessment and Plan: Slowly improved to normal level on LR/D5 rather than straight D5. (5) Hypokalemia: Code(s): E87.6 - Hypokalemia Status: Acute Assessment and Plan: Improved to 4.5 using IV potassium phosphate on 06/06 for replacement. (6) NAFLD (nonalcoholic fatty liver disease): Code(s): K76.0 - Fatty (change of) liver, not elsewhere classified Status: Acute Assessment and Plan: History of NAFLD. CT findings of diffuse hepatosteatosis and findings of ascities. No peritoneal signs on abdomen assessment. Mild transaminitis but no fulminant failure. 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 Increased levothyroxine supplementation. Plan Supplement caloric intake with tube feeds. Wean from IV fluids with watch on Na, K, Phos and Mag. Plan SNF discharge for rehab, possible supervisor intermediates placement. Subjective Date/time seen: 06/08/23 17:30 Interval history: 06/06 Rounding: Met with patient after EGD. She was seated upright in her bed. Patient is awake and alert but confused. Family at bedside states that patient has been confused for a couple of days called family overnight last night stating she was in a hotel in wanting to speak to her sister who had a few years ago. Family notes that once prior patient had acute confusion like this on top of her baseline dementia when she had a urinary tract infection. Patient denies any pain or fever. She notes that she has not been able to swallow her food, medication or drink very well recently. Patient complaining of wet dressing around her arm and burning at the IV site of receiving medications. Review of records and discussion with family, patient is having recurrent hypoglycemia of unknown cause, requiring IV dextrose infusion. Diet pending swallow study. IV si
[2023-06-08 20:14] LABS: Glucose Point of Care 82 mg/dl (65-105)
[2023-06-08] MEDS: MIRTAZAPINE 30 MG TABLET PO (21:42)
[2023-06-08] MEDS: HYDROcodone/acetaminophen (*CRX) 7.5-325 MG TABLET 0.5 TAB PO (21:53)
[2023-06-08 23:53] LABS: Glucose Point of Care 115 mg/dl (65-105)
[2023-06-09] VITALS (13 sets, daily range): BP systolic 101–122; BP diastolic 48–66; PULSE 101–117; RESP 12–20; TEMP 35.9–36.9; O2SAT 93–99
[2023-06-09 05:06] LABS: Glucose Point of Care 77 mg/dl (65-105)
[2023-06-09 05:19] LABS: Basophils Percent Auto 0.6 % (0.2-1.2); Eosinophils Absolute Auto 0.1 K/mm3 (0-0.3); Eosinophils Percent Auto 2.7 % (0-4.4); Hematocrit 35.8 % (37.0-47.0); Hemoglobin 11.8 g/dL (12.0-15.0); Immature Granulocyte Absolute 0.01 K/mm3 (0.00-0.031); Immature Granulocyte Percent A 0.2 % (0-0.5); Lymphocytes Percent Auto 25.2 % (18.3-44.2); Mean Corpuscular Hemoglobin 32.8 pg (26-34); Mean Corpuscular Volume 99.4 fl (80-100); Mean Platelet Volume 11.5 fl (7.4-10.4); Monocytes Absolute Auto 0.5 K/mm3 (0.1-0.6); Monocytes Percent Auto 10.7 % (2.6-8.5); Neutrophils Absolute Auto 2.9 K/mm3 (1.3-6.7); Neutrophils Percent Auto 60.6 % (45.5-73.1); Platelet Count Result 177 k/mm3 (150-375); Red Cell Distribution Width 19.6 % (11.5-14.5); White Blood Count 4.8 K/mm3 (4.5-10.0)
[2023-06-09 05:34] LABS: Alanine Aminotransferase 33 U/L (6-35); Albumin Level 2.5 g/dL (3.5-5.1); Alkaline Phosphatase 103 U/L (38-126); Anion Gap 2 mmol/L (8-16); Aspartate Amino Transferase 124 U/L (14-36); Bilirubin,Total 1.2 mg/dL (0.2-1.3); Blood Urea Nitrogen 7 mg/dL (7-17); Calcium 8.3 mg/dL (8.4-10.2); Carbon Dioxide 33 mmol/L (22-30); Chloride 102 mmol/L (98-107); Estimated CRCL calculation 43 ml/min; Estimated Glomerular Filt Rate > 60; Glucose 83 mg/dL (65-110); Magnesium 1.8 mg/dL (1.6-2.3); Phosphorus 2.8 mg/dL (2.5-4.5); Potassium 4.5 mmol/L (3.4-5.0); Sodium 137 mmol/L (137-145)
--- NOTE | 2023-06-09 06:19 | WPDGIPROGNO ---
Progress Note: A&P Assessment and Plan (1) Dysphagia: Code(s): R13.10 - Dysphagia, unspecified Status: Acute Assessment and Plan: she states that even pills and water are difficult to get down. Consequently she is eating less and less. Currently receiving feedings via NG tube. She states that she does not want to have to go through life with that. I told her that that was not the plan but we are contemplating feeding tube. She said that she is thinking about it but somehow it scares her. (2) Hypokalemia: Code(s): E87.6 - Hypokalemia Status: Acute Assessment and Plan: Potassium was 3.3 but it has been corrected. This is no longer an issue (3) Hypoglycemia: Code(s): E16.2 - Hypoglycemia, unspecified Status: Acute Assessment and Plan: Blood sugar was 40 when paramedics picked her up (4) Weight loss: Code(s): R63.4 - Abnormal weight loss Status: Acute Assessment and Plan: she has gradually lost at least 25 lb (5) Chronic GERD: Code(s): K21.9 - Gastro-esophageal reflux disease without esophagitis Status: Acute Assessment and Plan: rather than heartburn, she states that it has nausea that is her main symptom as well as the fact that is difficult to swallow. Plan we discussed her nutritional status. She understands that she is not able to get sufficient in by mouth. Swallowing and eating is an issue. A G-tube would help supplement her nutrition and provide access for medications etcetera. She states that she is considering it but cannot decide at this moment. Subjective Date/time seen: 06/09/23 06:19 Due to poor oral intake, NG tube was placed to supply adequate nutrition in hopes of discontinuing IV fluids. Modified barium swallow showed no sign of aspiration. She seems to have primarily an esophageal motility problem. she denies spoke about the option of a feeding tube. She said that we talked about yesterday she said I understand the need t for more nutrition, but I am scared. Exam Const: General: alert and malnourished Nutritional Appearance: malnourished Orientation/consciousness: patient oriented x3 Resp: Auscultation: clear to auscultation bilaterally Cardio: Rhythm: regular rhythm GI: Inspection: normal to inspection Auscultation: normal bowel sounds Neuro: General: patient oriented x3 Objective Data Vital Signs Vital Signs: Vital Signs - 24 hr 06/08/23 08:00 06/08/23 12:00 06/08/23 08:00 Temperature 36.6 C 36.1 C L Pulse Rate 107 H 101 H Respiratory Rate 16 12 Blood Pressure 116/91 H 115/52 L Pulse Oximetry 100 100 Oxygen Delivery Room Air 06/08/23 12:00 06/08/23 16:00 06/08/23 08:00 Temperature 36.2 C L Pulse Rate 106 H 107 H Respiratory Rate 16 Blood Pressure 116/62 Pulse Oximetry 100 Oxygen Delivery Room Air 06/08/23 10:00 06/08/23 12:00 06/08/23 14:00 Temperature Pulse Rate 111 H 107 H 100 Respiratory Rate Blood Pressure Pulse Oximetry Oxygen Delivery 06/08/23 16:00 06/08/23 16:00 06/08/23 18:00 Temperature Pulse Rate 103 H 85 Respiratory Rate Blood Pressure Pulse Oximetry Oxygen Delivery Room Air 06/08/23 20:00 06/09/23 00:00 Temperature 36.4 C 36.3 C L Pulse Rate 113 H 106 H Respiratory Rate 20 20 Blood Pressure 110/62 111/48 L Pulse Oximetry 99 93 Oxygen Delivery Intake/Output Intake/Output: Intake & Output 06/06/23 06/07/23 06/08/23 06/09/23 23:59 23:59 23:59 23:59 Intake Total 2120 3680 1250 Output Total 400 1550 1550 Balance 1720 2130 -300 Meds/Results Medications: Active Medications Generic Name Dose Route Start Last Admin Trade Name Freq PRN Reason Stop Dose Admin Hydrocodone Bitart/Acetaminophen 0.5 tab 06/05/23 17:41 06/08/23 21:53 Hydrocodone/Acetaminophen (*Crx) 7.5-325 Mg Tablet PO 0.5 tab BID PRN Administration pain 4-6 Albuterol 2 p
[2023-06-09 07:05] LABS: Glucose Point of Care 88 mg/dl (65-105)
[2023-06-09] MEDS: VITAMIN B COMPLEX CAPSULE 1 CAP PO (08:47)
[2023-06-09] MEDS: POTASSIUM CHLORIDE 20 MEQ ER TABLET PO (08:48)
[2023-06-09] MEDS: FAMOTIDINE 20 MG/2 ML VIAL IV PUSH ×2 (08:48→20:16)
[2023-06-09] MEDS: MULTIVITAMINS THERAPEUTIC TAB (*BKC) 1 TABLET PO (08:48)
[2023-06-09] MEDS: ENOXAPARIN 40 MG/0.4 ML SYRINGE SUB-Q (08:48)
[2023-06-09] MEDS: PANTOPRAZOLE SODIUM IV 40 MG VIAL IV PUSH ×2 (08:48→20:16)
[2023-06-09] MEDS: CYCLOBENZAPRINE HCL 10 MG TABLET PO ×3 (08:49→16:58)
[2023-06-09] MEDS: CHOLECALCIFEROL 1,000 UNITS TABLET 10000 UNITS PO (08:50)
[2023-06-09] MEDS: LEVOTHYROXINE SODIUM 75 MCG TABLET PO (08:50)
[2023-06-09] MEDS: ASCORBIC ACID 250 MG TABLET PO (08:50)
[2023-06-09 11:26] LABS: Glucose Point of Care 97 mg/dl (65-105)
[2023-06-09 13:11] LABS: Glucose Point of Care 94 mg/dl (65-105)
--- NOTE | 2023-06-09 14:44 | PCPTNOTE ---
Patient refused treatment this session. Patient had visitors at this time and reported she did not feel up for therapy for today. Patient asked if PT can come back tomorrow.
[2023-06-09] MEDS: HYDROcodone/acetaminophen (*CRX) 7.5-325 MG TABLET 0.5 TAB PO (16:57)
[2023-06-09] MEDS: POTASSIUM CHLORIDE 20 MEQ PACKET (FOR LIQUID) PO (16:57)
--- NOTE | 2023-06-09 17:33 | PC.NURSE ---
This patient, Ade Rehman, was transferred to [facility] on 06/09/23 at 1733. Personal belongings sent with patient. Report given to RODRÍGUEZ Leija. Appropriate documentation sent with patient.
--- NOTE | 2023-06-09 18:09 | WPDPN ---
Progress Note: A&P Assessment and Plan (1) Problems with swallowing: Code(s): R13.10 - Dysphagia, unspecified Status: Acute Assessment and Plan: EGD normal. Barium swallow with normal oral and pharyngeal function but delayed mobility through esophagus. 06/07 NG tube ordered with sheet metal welder consult for tube feeds to attempt to get patient off IV dextrose fluids. 06/09 Rounding: Patient awake but confused, patient was retaining urine, Lay was placed, this improved patient confusion and more coherent today. She is still not eating well, still having trouble swallowing, refused oral potassium. Tech fed patient lunch and she only ate some mashed potatoes and a little to drink. Patient still on IV fluids with dextrose. Albumin given due to low blood pressure. on 06/08 patient family was present in the room, discuss may bring food from home, if patient appetite does not improve, may consider PEG to supplement nutrients and calori and continue oral feeding, family will consider. patient appetite has not improved. (2) UTI (urinary tract infection): Code(s): N39.0 - Urinary tract infection, site not specified Status: Acute Assessment and Plan: No fever, normal WBC, likely contributory to altered mentation and possibly related to hypoglycemia. Continue IV Rocephin pending urine cultures. (3) Hypoglycemia: Code(s): E16.2 - Hypoglycemia, unspecified Status: Acute Assessment and Plan: Stable on LR/D5 at 100 mL/hr. Inserting NG tube for tube feeding supplementation to improve calorie intake in hopes to stabilize levels and get off IV fluids. Insulin testing has been sent. CT abdomen with normal pancreas findings. CT Brain normal. Patient not a known diabetic and no suspected overdose of insulin or medications. (4) Acute hyponatremia: Code(s): E87.1 - Hypo-osmolality and hyponatremia Status: Acute Assessment and Plan: Slowly improved to normal level on LR/D5 rather than straight D5. (5) Hypokalemia: Code(s): E87.6 - Hypokalemia Status: Acute Assessment and Plan: Improved to 4.5 using IV potassium phosphate on 06/06 for replacement. (6) NAFLD (nonalcoholic fatty liver disease): Code(s): K76.0 - Fatty (change of) liver, not elsewhere classified Status: Acute Assessment and Plan: History of NAFLD. CT findings of diffuse hepatosteatosis and findings of ascities. No peritoneal signs on abdomen assessment. Mild transaminitis but no fulminant failure. 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 Increased levothyroxine supplementation. Plan Supplement caloric intake with tube feeds. Wean from IV fluids with watch on Na, K, Phos and Mag. Plan SNF discharge for rehab, possible nursing home placement. Subjective Date/time seen: 06/09/23 18:09 Interval history: 06/06 Rounding: Met with patient after EGD. She was seated upright in her bed. Patient is awake and alert but confused. Family at bedside states that patient has been confused for a couple of days called family overnight last night stating she was in a hotel in wanting to speak to her sister who had a few years ago. Family notes that once prior patient had acute confusion like this on top of her baseline dementia when she had a urinary tract infection. Patient denies any pain or fever. She notes that she has not been able to swallow her food, medication or drink very well recently. Patient complaining of wet dressing around her arm and burning at the IV site of receiving medications. Review of records and discussion with family, patient is having recurrent hypoglycemia of unknown cause, requiring IV dextrose in
[2023-06-09] MEDS: MIRTAZAPINE 30 MG TABLET PO (20:16)
[2023-06-09 21:34] LABS: Glucose Point of Care 85 mg/dl (65-105)
[2023-06-10] VITALS (7 sets, daily range): BP systolic 114–133; BP diastolic 59–73; PULSE 106–112; RESP 14–22; TEMP 36.2–37.1; O2SAT 95–96
[2023-06-10 05:08] LABS: C-Peptide 3.86 ng/mL (0.80-3.85)
[2023-06-10] MEDS: LEVOTHYROXINE SODIUM 75 MCG TABLET PO (06:36)
[2023-06-10 06:46] LABS: Basophils Percent Auto 0.6 % (0.2-1.2); Eosinophils Absolute Auto 0.1 K/mm3 (0-0.3); Eosinophils Percent Auto 2.7 % (0-4.4); Hemoglobin 10.9 g/dL (12.0-15.0); Immature Granulocyte Absolute 0.02 K/mm3 (0.00-0.031); Immature Granulocyte Percent A 0.4 % (0-0.5); Lymphocytes Percent Auto 23.2 % (18.3-44.2); Mean Corpuscular Hemoglobin 32.7 pg (26-34); Mean Corpuscular Volume 99.1 fl (80-100); Mean Platelet Volume 11.4 fl (7.4-10.4); Monocytes Absolute Auto 0.6 K/mm3 (0.1-0.6); Monocytes Percent Auto 12.4 % (2.6-8.5); Neutrophils Absolute Auto 2.9 K/mm3 (1.3-6.7); Neutrophils Percent Auto 60.7 % (45.5-73.1); Platelet Count Result 164 k/mm3 (150-375); Red Blood Count 3.33 M/mm3 (4.2-5.4); Red Cell Distribution Width 19.9 % (11.5-14.5); White Blood Count 4.8 K/mm3 (4.5-10.0)
[2023-06-10 07:11] LABS: Magnesium 1.9 mg/dL (1.6-2.3); Phosphorus 2.7 mg/dL (2.5-4.5)
[2023-06-10] MEDS: PANTOPRAZOLE SODIUM IV 40 MG VIAL IV PUSH ×2 (09:36→20:16)
[2023-06-10] MEDS: ENOXAPARIN 40 MG/0.4 ML SYRINGE SUB-Q (09:36)
[2023-06-10] MEDS: CYCLOBENZAPRINE HCL 10 MG TABLET PO ×3 (09:42→18:04)
[2023-06-10 12:05] LABS: Glucose Point of Care 103 mg/dl (65-105)
[2023-06-10 12:40] LABS: Appearance Urine Clear (Clear); Bacteria Urine None Seen /hpf; Bilirubin Urine Negative (Negative); Blood Urine Negative (Negative); Color Urine Yellow (Yellow); Glucose Urine UA Negative (Negative); Ketones Urine Negative (Negative); Leukocyte Esterase Ur Trace LEU/UL (Negative); Need Manual Microscopic Reviewed; Nitrate Urine Negative (Negative); Non Pathogenic Casts 0-2; Protein Urine Trace mg/dL (Negative); Specific Grav Ur 1.016 (1.001-1.035); Squamous Epithelial Cell Urine None seen /hpf (Few); WBC Urine 0-5 /hpf; pH Urine 8.5 (5.0-9.0)
[2023-06-10 12:43] LABS: Add Urine Microscopic? YES
[2023-06-10] MEDS: PHENOL/SOD PHENO SPRAY CHERRY (*BKC) 1 SPRAY MUCOUS MEM (12:51)
--- NOTE | 2023-06-10 13:21 | WPDPN ---
Progress Note: A&P Assessment and Plan (1) Problems with swallowing: Code(s): R13.10 - Dysphagia, unspecified Status: Acute Assessment and Plan: EGD normal. Barium swallow with normal oral and pharyngeal function but delayed mobility through esophagus. 06/07 NG tube ordered with hammer setter consult for tube feeds to attempt to get patient off IV dextrose fluids. 06/10 Rounding: Patient awake but confused, patient was retaining urine, Lay was placed, this improved patient confusion and more coherent today. She is still not eating well, still having trouble swallowing, refused oral potassium. Tech fed patient lunch and she only ate some mashed potatoes and a little to drink. Patient still on IV fluids with dextrose. Albumin given due to low blood pressure. on 06/08 patient family was present in the room, discuss may bring food from home, if patient appetite does not improve, may consider PEG to supplement nutrients and calori and continue oral feeding, family will consider. today I called patient son Justice and he has agreed to place PEG, will consult GI, further recommendation to follow (2) UTI (urinary tract infection): Code(s): N39.0 - Urinary tract infection, site not specified Status: Acute Assessment and Plan: No fever, normal WBC, likely contributory to altered mentation and possibly related to hypoglycemia. Continue IV Rocephin pending urine cultures. (3) Hypoglycemia: Code(s): E16.2 - Hypoglycemia, unspecified Status: Acute Assessment and Plan: Stable on LR/D5 at 100 mL/hr. Inserting NG tube for tube feeding supplementation to improve calorie intake in hopes to stabilize levels and get off IV fluids. Insulin testing has been sent. CT abdomen with normal pancreas findings. CT Brain normal. Patient not a known diabetic and no suspected overdose of insulin or medications. (4) Acute hyponatremia: Code(s): E87.1 - Hypo-osmolality and hyponatremia Status: Acute Assessment and Plan: Slowly improved to normal level on LR/D5 rather than straight D5. (5) Hypokalemia: Code(s): E87.6 - Hypokalemia Status: Acute Assessment and Plan: Improved to 4.5 using IV potassium phosphate on 06/06 for replacement. (6) NAFLD (nonalcoholic fatty liver disease): Code(s): K76.0 - Fatty (change of) liver, not elsewhere classified Status: Acute Assessment and Plan: History of NAFLD. CT findings of diffuse hepatosteatosis and findings of ascities. No peritoneal signs on abdomen assessment. Mild transaminitis but no fulminant failure. 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 Increased levothyroxine supplementation. Plan Supplement caloric intake with tube feeds. Wean from IV fluids with watch on Na, K, Phos and Mag. Plan SNF discharge for rehab, possible termite technician placement. Subjective Date/time seen: 06/10/23 13:21 Interval history: 06/06 Rounding: Met with patient after EGD. She was seated upright in her bed. Patient is awake and alert but confused. Family at bedside states that patient has been confused for a couple of days called family overnight last night stating she was in a hotel in wanting to speak to her sister who had a few years ago. Family notes that once prior patient had acute confusion like this on top of her baseline dementia when she had a urinary tract infection. Patient denies any pain or fever. She notes that she has not been able to swallow her food, medication or drink very well recently. Patient complaining of wet dressing around her arm and burning at the IV site of receiving medications. Review of records and discussion with family, jose
--- NOTE | 2023-06-10 14:48 | PCPTNOTE ---
Patient refused treatment this session. Patient did not give reason why. Educated patient on the importance of PT and gave encouragement for participation, patient continued to refuse. Patient's family member present and gave encouragement as well.
--- NOTE | 2023-06-10 15:26 | PCNFU ---
Nutrition Follow-Up Complete: HPI: Considering placing a PEG tube due to inadequate intake. Patient was told food from home could be brought in to help promote intake. Patient had Barium swallow which showed normal oral and pharyngeal function. Patient's intake appears inadequate. She consumed 100% of supplement over the past 2 days but has had limited intake at meals over the past 2 days. Patient denied vomiting, diarrhea, constipation. C/o nausea. UBW: 125 lbs. 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 Pt current nutrition is Jevity 1.5 continuous at 35 mL/hr. Jevity 1.5 @ 23 mL/hr is providing 1155 kcal (meeting 75% of estimated nutrition needs) and 49g protein (meeting 96% of estimated protein needs) and 585mL H20. Last recorded weight is 42.9 kg. No new weights since admission. Bowel Motility: BM x 1 - 06/07/23. Abd is soft, non-tender. Labs Reviewed: POC glucose: 103 Meds Noted: Tracy, vitamin C, Remeron, MVI, protonix, KCl, vitamin B complex, vitamin D, Zofran Skin: no pressure ulcers Additional Notes: left leg non-pitting edema noted. Current TF Rx is well tolerated per EHR. Nutrition dx: Moderate protein calorie malnutrition related to inadequate energy intake as evidenced by noted significant wt loss of -22% x 6 months, poor PO intake, and NFPE findings. Nutrition recommendation: Continue with current TF Rx of Jevity 1.5 at 35mL x 22 hours. TF is meeting 75% of estimated energy and protein needs. Will adjust TF Rx on follow-up if PO not improved. Stool aid prn for constipation. Goals: PO intake 50% or greater for meals and supplements; tolerance of tube feedings Monitor intake, weight, labs. Follow up in 3 days.
[2023-06-10 18:08] LABS: Glucose Point of Care 89 mg/dl (65-105)
[2023-06-10] MEDS: MIRTAZAPINE 30 MG TABLET PO (20:16)
[2023-06-10 23:55] LABS: Glucose Point of Care 91 mg/dl (65-105)
[2023-06-11] VITALS (9 sets, daily range): BP systolic 119–152; BP diastolic 58–67; PULSE 102–111; RESP 15–18; TEMP 36.2–37.2; O2SAT 91–100
[2023-06-11] MEDS: LEVOTHYROXINE SODIUM 75 MCG TABLET PO (05:30)
[2023-06-11 06:41] LABS: Glucose Point of Care 111 mg/dl (65-105)
[2023-06-11] MEDS: ENOXAPARIN 40 MG/0.4 ML SYRINGE SUB-Q (08:32)
[2023-06-11] MEDS: CYCLOBENZAPRINE HCL 10 MG TABLET PO ×3 (08:32→18:19)
[2023-06-11] MEDS: VITAMIN B COMPLEX CAPSULE 1 CAP PO (08:33)
[2023-06-11] MEDS: CHOLECALCIFEROL 1,000 UNITS TABLET 10000 UNITS PO (08:33)
[2023-06-11] MEDS: MULTIVITAMINS THERAPEUTIC TAB (*BKC) 1 TABLET PO (08:34)
[2023-06-11] MEDS: PANTOPRAZOLE SODIUM IV 40 MG VIAL IV PUSH ×2 (08:34→20:07)
[2023-06-11] MEDS: ASCORBIC ACID 250 MG TABLET PO (08:35)
[2023-06-11] MEDS: HYDROcodone/acetaminophen (*CRX) 7.5-325 MG TABLET 0.5 TAB PO (09:03)
[2023-06-11 11:57] LABS: Glucose Point of Care 112 mg/dl (65-105)
--- NOTE | 2023-06-11 12:14 | WPDGIPROGNO ---
Progress Note: A&P Assessment and Plan (1) Dysphagia: Code(s): R13.10 - Dysphagia, unspecified Status: Acute Assessment and Plan: patient still thinking about possible PEG placement, will recheck on her tomorrow and if agreeable then Dr Cueto will be back Tuesday (2) Hypokalemia: Code(s): E87.6 - Hypokalemia Status: Acute Assessment and Plan: this was treated (3) Hypoglycemia: Code(s): E16.2 - Hypoglycemia, unspecified Status: Acute Assessment and Plan: now she is getting nutrition (4) Weight loss: Code(s): R63.4 - Abnormal weight loss Status: Acute Assessment and Plan: she has gradually lost at least 25 lb Subjective Date/time seen: 06/11/23 12:15 Interval history: she has been getting tube feeding by ngt, tolerating. She is thinking about peg placement (primary team called again to talk to patient about it) Review of Systems Review of Systems: All systems reviewed & are unremarkable except as noted in HPI and below Exam Const: General: alert and malnourished Orientation/consciousness: patient oriented x3 HENMT: Face/Nose/Sinus: Normal nares present Other: ngt in place Eyes: Sclera: sclerae normal Neck: Neck: supple Resp: Auscultation: clear to auscultation bilaterally Cardio: Rhythm: regular rhythm GI: Inspection: normal to inspection Auscultation: normal bowel sounds Skin: General skin exam: no rashes or lesions noted Neuro: General: patient oriented x3 Extrem: General: normal to inspection Psych: Mental Status: mental status grossly normal Objective Data Vital Signs Vital Signs: Vital Signs - 24 hr 06/10/23 14:00 06/10/23 16:00 06/10/23 20:00 Temperature 98.8 F Pulse Rate 107 H 106 H Respiratory Rate 14 Blood Pressure 114/73 Pulse Oximetry 95 Oxygen Delivery Room Air 06/10/23 22:00 06/10/23 20:00 06/11/23 00:00 Temperature 97.1 F L Pulse Rate 112 H 110 H 109 H Respiratory Rate 14 Blood Pressure 133/65 Pulse Oximetry 96 Oxygen Delivery 06/11/23 04:00 06/11/23 06:00 Temperature 97.2 F L Pulse Rate 106 H 107 H Respiratory Rate 16 Blood Pressure 152/67 H Pulse Oximetry 100 Oxygen Delivery Intake/Output Intake/Output: Intake & Output 06/08/23 06/09/23 06/10/23 06/11/23 23:59 23:59 23:59 23:59 Intake Total 1300 550 150 100 Output Total 1653 850 1665 750 Balance -250 100 -850 -650 Meds/Results Medications: Active Medications Generic Name Dose Route Start Last Admin Trade Name Freq PRN Reason Stop Dose Admin Hydrocodone Bitart/Acetaminophen 0.5 tab 06/05/23 17:41 06/11/23 09:03 Hydrocodone/Acetaminophen (*Crx) 7.5-325 Mg Tablet PO 0.5 tab BID PRN Administration pain 4-6 Albuterol 2 puff 06/05/23 17:54 Albuterol Sulfate (*Sp) Aerosol 1 Puff INHALATION Q6HRT PRN Shortness Of Breath Artificial Tears 1 drop 06/05/23 17:13 Artificial Tears Ophth Soln 15 Ml Bottle EACH EYE BID PRN Dry Eyes Ascorbic Acid 250 mg 06/06/23 09:00 06/11/23 08:35 Ascorbic Acid 250 Mg Tablet PO 250 mg DAILY HAL Administration Cyclobenzaprine HCl 10 mg 06/06/23 09:00 06/11/23 08:32 Cyclobenzaprine Hcl 10 Mg Tablet PO 10 mg TID HAL Administration Dextrose 12.5 gm 06/06/23 14:12 Dextrose 50% 25 Gm/50 Ml Syringe IV PUSH PRN PRN Hypoglycemia Protocol Enoxaparin Sodium 40 mg 06/07/23 09:00 06/11/23 08:32 Enoxaparin 40 Mg/0.4 Ml Syringe SUB-Q 40 mg DAILY HAL Administration Glucagon 1 mg 06/06/23 14:12 Glucagon For Inj 1 Mg Vial IM PRN PRN Hypoglycemia Protocol Glucose 15 gm 06/06/23 14:12 Glucose Oral Gel 15 Gm Of Glucse In 37.5 Gm Tube PO PRN PRN Hypoglycemia Protocol Ceftriaxone Sodium 1 gm in 50 mls @ 100 mls/hr 06/06/23 12:00 06/10/23 14:44 Rocephin 1 Gm/Ns 50 Ml IVPB 06/11/23 12:29 100 mls/hr Q24H
--- NOTE | 2023-06-11 14:23 | PM.IMPN ---
Progress Note: A&P Assessment and Plan (1) Problems with swallowing: Code(s): R13.10 - Dysphagia, unspecified Status: Acute Assessment and Plan: EGD normal. Barium swallow with normal oral and pharyngeal function but delayed mobility through esophagus. 06/07 NG tube ordered with lap hand tool consult for tube feeds to attempt to get patient off IV dextrose fluids. 06/10 Rounding: Patient awake but confused, patient was retaining urine, Lay was placed, this improved patient confusion and more coherent today. She is still not eating well, still having trouble swallowing, refused oral potassium. Tech fed patient lunch and she only ate some mashed potatoes and a little to drink. Patient still on IV fluids with dextrose. Albumin given due to low blood pressure. on 06/08 patient family was present in the room, discuss may bring food from home, if patient appetite does not improve, may consider PEG to supplement nutrients and calori and continue oral feeding, family will consider. today I called patient son Justice and he has agreed to place PEG, will consult GI, further recommendation to follow 06/11/23: Patient presented with generalized weakness and fatigue hypoglycemia. Evidence of UTI. Confusion baseline recurrent hypoglycemia cause requiring dextrose urinary retention Lay was placed eating trouble swallowing. Low blood pressure. Low p.o. intake. Consideration of PEG tube for nutrition in process. Low blood pressure has resolved. Mild anemia. A1c of 4.2. C-peptide high at 3.86 elevated lactic acid on admission. Hypoalbuminemia due to 2-3. Lipase is normal. Random cortisol level 14. Cosyntropin test within adequate increase cortisol level with ACTH suggestive of adrenal insufficiency. TSH 8 suggestive of hypothyroidism. Total T3 low T4 normal. Synthroid has increased MBS with normal swallowing function without penetration or aspiration. Reported weight loss of 25 lb. EGD 06/06/2023: Normal biopsies taken CT abdomen pelvis with diffuse hepatic steatosis and moderate ascites. Urine culture with Citrobacter freundii. UTI treated with ceftriaxone and finish the course of treatment. Blood culture x2 negative. Current knee NG in place with tube feed running. DVT prophylaxis with Lovenox will add hydrocortisone for adrenal insufficiency (2) UTI (urinary tract infection): Code(s): N39.0 - Urinary tract infection, site not specified Status: Acute Assessment and Plan: No fever, normal WBC, likely contributory to altered mentation and possibly related to hypoglycemia. Continue IV Rocephin pending urine cultures. (3) Hypoglycemia: Code(s): E16.2 - Hypoglycemia, unspecified Status: Acute Assessment and Plan: Stable on LR/D5 at 100 mL/hr. Inserting NG tube for tube feeding supplementation to improve calorie intake in hopes to stabilize levels and get off IV fluids. Insulin testing has been sent. CT abdomen with normal pancreas findings. CT Brain normal. Patient not a known diabetic and no suspected overdose of insulin or medications. (4) Acute hyponatremia: Code(s): E87.1 - Hypo-osmolality and hyponatremia Status: Acute Assessment and Plan: Slowly improved to normal level on LR/D5 rather than straight D5. (5) Hypokalemia: Code(s): E87.6 - Hypokalemia Status: Acute Assessment and Plan: Improved to 4.5 using IV potassium phosphate on 06/06 for replacement. (6) NAFLD (nonalcoholic fatty liver disease): Code(s): K76.0 - Fatty (change of) liver, not elsewhere classified Status: Acute Assessment and Plan: History of NAFLD. CT findings of diffuse hepatosteatosis and findings of ascities. No peritoneal signs on abdomen assessment. Mild transaminitis but no fulminant failure. (7) Weight loss: Code(s): R63.4 - Abnormal weight loss Status: Acute Assessment and Plan: Loss of over 10 pounds in a month related to swallowing diffi
[2023-06-11] MEDS: ONDANSETRON INJ 4 MG/2 ML VIAL IV PUSH (16:49)
[2023-06-11] MEDS: HYDROCORTISONE 10 MG TABLET PO (18:19)
[2023-06-11] MEDS: MIRTAZAPINE 30 MG TABLET PO (20:07)
[2023-06-11] MEDS: BENZOCAINE/MENTHOL (*BKC) 18 EA LOZENGE 1 LOZENGE PO (20:38)
[2023-06-11 23:12] LABS: Glucose Point of Care 129 mg/dl (65-105)
[2023-06-12] VITALS (10 sets, daily range): BP systolic 121–125; BP diastolic 56–74; PULSE 103–114; RESP 12–16; TEMP 35.8–36.3; O2SAT 92–95
[2023-06-12] MEDS: LEVOTHYROXINE SODIUM 75 MCG TABLET PO (05:31)
[2023-06-12 06:14] LABS: Glucose Point of Care 110 mg/dl (65-105)
[2023-06-12 06:39] LABS: Basophils Percent Auto 0.5 % (0.2-1.2); Eosinophils Absolute Auto 0.1 K/mm3 (0-0.3); Eosinophils Percent Auto 2.2 % (0-4.4); Hemoglobin 9.9 g/dL (12.0-15.0); Immature Granulocyte Absolute 0.02 K/mm3 (0.00-0.031); Immature Granulocyte Percent A 0.5 % (0-0.5); Lymphocytes Absolute Auto 0.83 K/mm3 (0.9-3.2); Lymphocytes Percent Auto 20.3 % (18.3-44.2); Mean Corpuscular Hemoglobin 32.7 pg (26-34); Mean Platelet Volume 11.7 fl (7.4-10.4); Monocytes Absolute Auto 0.6 K/mm3 (0.1-0.6); Monocytes Percent Auto 15.4 % (2.6-8.5); Neutrophils Absolute Auto 2.5 K/mm3 (1.3-6.7); Neutrophils Percent Auto 61.1 % (45.5-73.1); Platelet Count Result 147 k/mm3 (150-375); Red Blood Count 3.03 M/mm3 (4.2-5.4); Red Cell Distribution Width 19.9 % (11.5-14.5); White Blood Count 4.1 K/mm3 (4.5-10.0)
[2023-06-12 07:29] LABS: Alanine Aminotransferase 36 U/L (6-35); Albumin Level 2.4 g/dL (3.5-5.1); Alkaline Phosphatase 132 U/L (38-126); Anion Gap 1 mmol/L (8-16); Aspartate Amino Transferase 111 U/L (14-36); Bilirubin,Total 0.7 mg/dL (0.2-1.3); Blood Urea Nitrogen 13 mg/dL (7-17); Calcium 8.1 mg/dL (8.4-10.2); Carbon Dioxide 30 mmol/L (22-30); Chloride 102 mmol/L (98-107); Estimated CRCL calculation 58 ml/min; Estimated Glomerular Filt Rate > 60; Glucose 106 mg/dL (65-110); Magnesium 2.1 mg/dL (1.6-2.3); Potassium 3.6 mmol/L (3.4-5.0); Sodium 133 mmol/L (137-145)
[2023-06-12] MEDS: ENOXAPARIN 40 MG/0.4 ML SYRINGE SUB-Q (09:41)
[2023-06-12] MEDS: PHENOL/SOD PHENO SPRAY CHERRY (*BKC) 1 SPRAY MUCOUS MEM ×2 (09:45→15:08)
[2023-06-12] MEDS: ONDANSETRON INJ 4 MG/2 ML VIAL IV PUSH (09:48)
[2023-06-12] MEDS: PANTOPRAZOLE SODIUM IV 40 MG VIAL IV PUSH ×2 (09:49→20:01)
[2023-06-12] MEDS: POTASSIUM CHLORIDE 20 MEQ PACKET (FOR LIQUID) PO (09:56)
[2023-06-12] MEDS: CHOLECALCIFEROL 1,000 UNITS TABLET 10000 UNITS PO (09:57)
[2023-06-12] MEDS: HYDROCORTISONE 10 MG TABLET PO ×2 (09:58→17:32)
[2023-06-12] MEDS: VITAMIN B COMPLEX CAPSULE 1 CAP PO (09:59)
[2023-06-12] MEDS: CYCLOBENZAPRINE HCL 10 MG TABLET PO ×3 (09:59→17:32)
[2023-06-12] MEDS: ASCORBIC ACID 250 MG TABLET PO (09:59)
[2023-06-12] MEDS: MULTIVITAMINS THERAPEUTIC TAB (*BKC) 1 TABLET PO (10:00)
--- NOTE | 2023-06-12 11:37 | WPDGIPROGNO ---
Progress Note: A&P Assessment and Plan (1) Dysphagia: Code(s): R13.10 - Dysphagia, unspecified Status: Acute Assessment and Plan: she is drinking ensure but still suboptimal oral intake, she still has NGT for tube feeding. She will talk to her son about potential peg placement. Dr Cueto will be back tomorrow. (2) Hypokalemia: Code(s): E87.6 - Hypokalemia Status: Acute Assessment and Plan: this was treated (3) Hypoglycemia: Code(s): E16.2 - Hypoglycemia, unspecified Status: Acute Assessment and Plan: now she is getting nutrition (4) Weight loss: Code(s): R63.4 - Abnormal weight loss Status: Acute Assessment and Plan: she has gradually lost at least 25 lb poor calorie intake Subjective Date/time seen: 06/12/23 11:37 Interval history: she has been drinking ensure this morning, still on tube feeding by NGT, no abdominal pain. She is comfortable. Review of Systems Review of Systems: All systems reviewed & are unremarkable except as noted in HPI and below Exam Const: General: alert and malnourished Orientation/consciousness: patient oriented x3 HENMT: Face/Nose/Sinus: Normal nares present Other: ngt in place Eyes: Sclera: sclerae normal Neck: Neck: supple Resp: Auscultation: clear to auscultation bilaterally Cardio: Rhythm: regular rhythm GI: Inspection: normal to inspection Auscultation: normal bowel sounds Skin: General skin exam: no rashes or lesions noted Neuro: General: patient oriented x3 Extrem: General: normal to inspection Psych: Mental Status: mental status grossly normal Objective Data Vital Signs Vital Signs: Vital Signs - 24 hr 06/11/23 15:10 06/11/23 12:00 06/11/23 16:00 Temperature 99.0 F Pulse Rate 105 H 106 H 108 H Respiratory Rate 18 Blood Pressure 119/58 L Pulse Oximetry 91 Oxygen Delivery 06/11/23 20:00 06/11/23 20:00 06/11/23 22:00 Temperature 97.5 F L Pulse Rate 108 H 111 H 109 H Respiratory Rate 18 15 Blood Pressure 120/62 Pulse Oximetry 91 94 Oxygen Delivery Room Air 06/12/23 00:00 06/12/23 04:00 06/12/23 05:21 Temperature 96.5 F L Pulse Rate 107 H 106 H 104 H Respiratory Rate 15 Blood Pressure 125/74 Pulse Oximetry 95 Oxygen Delivery 06/12/23 05:57 06/12/23 08:00 Temperature Pulse Rate 107 H 103 H Respiratory Rate Blood Pressure Pulse Oximetry Oxygen Delivery Intake/Output Intake/Output: Intake & Output 06/09/23 06/10/23 06/11/23 06/12/23 23:59 23:59 23:59 23:59 Intake Total 550 200 150 785 Output Total 450 1000 1250 650 Balance 100 -800 -1100 135 Meds/Results Medications: Active Medications Generic Name Dose Route Start Last Admin Trade Name Freq PRN Reason Stop Dose Admin Hydrocodone Bitart/Acetaminophen 0.5 tab 06/05/23 17:41 06/11/23 09:03 Hydrocodone/Acetaminophen (*Crx) 7.5-325 Mg Tablet PO 0.5 tab BID PRN Administration pain 4-6 Albuterol 2 puff 06/05/23 17:54 Albuterol Sulfate (*Sp) Aerosol 1 Puff INHALATION Q6HRT PRN Shortness Of Breath Artificial Tears 1 drop 06/05/23 17:13 Artificial Tears Ophth Soln 15 Ml Bottle EACH EYE BID PRN Dry Eyes Ascorbic Acid 250 mg 06/06/23 09:00 06/12/23 09:59 Ascorbic Acid 250 Mg Tablet PO 250 mg DAILY HAL Administration Benzocaine 1 lozenge 06/11/23 20:05 06/11/23 20:38 Benzocaine/Menthol (*Bkc) 18 Ea Lozenge PO 1 lozenge PRN PRN Administration Sore Throat Cyclobenzaprine HCl 10 mg 06/06/23 09:00 06/12/23 09:59 Cyclobenzaprine Hcl 10 Mg Tablet PO 10 mg TID HAL Administration Dextrose 12.5 gm 06/06/23 14:12 Dextrose 50% 25 Gm/50 Ml Syringe IV PUSH PRN PRN Hypoglycemia Protocol Enoxaparin Sodium 40 mg 06/07/23 09:00 06/12/23 09:41 Enoxaparin 40 Mg/0.4 Ml Syringe SUB-Q 40 mg DAILY HAL Administration Glucagon 1 mg 05/15
--- NOTE | 2023-06-12 11:54 | PCPTNOTE ---
Patient refused treatment this session due to to not feeling well. Encouraged patient to attempt bed mobility and transfers but patient continued to decline stating she did not feel well.
[2023-06-12 12:18] LABS: Glucose Point of Care 91 mg/dl (65-105)
--- NOTE | 2023-06-12 13:35 | PM.IMPN ---
Progress Note: A&P Assessment and Plan (1) Problems with swallowing: Code(s): R13.10 - Dysphagia, unspecified Status: Acute Assessment and Plan: EGD normal. Barium swallow with normal oral and pharyngeal function but delayed mobility through esophagus. 06/07 NG tube ordered with bar turner consult for tube feeds to attempt to get patient off IV dextrose fluids. 06/10 Rounding: Patient awake but confused, patient was retaining urine, Lay was placed, this improved patient confusion and more coherent today. She is still not eating well, still having trouble swallowing, refused oral potassium. Tech fed patient lunch and she only ate some mashed potatoes and a little to drink. Patient still on IV fluids with dextrose. Albumin given due to low blood pressure. on 06/08 patient family was present in the room, discuss may bring food from home, if patient appetite does not improve, may consider PEG to supplement nutrients and calori and continue oral feeding, family will consider. today I called patient son Justice and he has agreed to place PEG, will consult GI, further recommendation to follow 06/11/23: Patient presented with generalized weakness and fatigue hypoglycemia. Evidence of UTI. Confusion baseline recurrent hypoglycemia cause requiring dextrose urinary retention Lay was placed eating trouble swallowing. Low blood pressure. Low p.o. intake. Consideration of PEG tube for nutrition in process. Low blood pressure has resolved. Mild anemia. A1c of 4.2. C-peptide high at 3.86 elevated lactic acid on admission. Hypoalbuminemia due to 2-3. Lipase is normal. Random cortisol level 14. Cosyntropin test within adequate increase cortisol level with ACTH suggestive of adrenal insufficiency. TSH 8 suggestive of hypothyroidism. Total T3 low T4 normal. Synthroid has increased MBS with normal swallowing function without penetration or aspiration. Reported weight loss of 25 lb. EGD 06/06/2023: Normal biopsies taken CT abdomen pelvis with diffuse hepatic steatosis and moderate ascites. Urine culture with Citrobacter freundii. UTI treated with ceftriaxone and finish the course of treatment. Blood culture x2 negative. Current knee NG in place with tube feed running. DVT prophylaxis with Lovenox will add hydrocortisone for adrenal insufficiency 06/12/2023: Patient presented with generalized weakness and fatigue hypoglycemia. Evidence of UTI. Confusion baseline recurrent hypoglycemia cause requiring dextrose urinary retention Lay was placed eating trouble swallowing. Low blood pressure. Low p.o. intake. Consideration of PEG tube for nutrition in process. Low blood pressure has resolved. Mild anemia. A1c of 4.2. C-peptide high at 3.86 elevated lactic acid on admission. Hypoalbuminemia due to 2-3. Lipase is normal. Random cortisol level 14. Cosyntropin test with inadequate increase cortisol level with ACTH suggestive of adrenal insufficiency. Will add hydrocortisone for adrenal insufficiency. CT showed adrenal glands were normal. TSH 8 suggestive of hypothyroidism. Total T3 low T4 normal. Synthroid dose has increased. C-peptide came back mildly elevated however CT abdomen with contrast was negative for any mass suggestive of insulinoma. MBS with normal swallowing function without penetration or aspiration. Reported weight loss of 25 lb. EGD 06/06/2023: Normal biopsies taken CT abdomen pelvis with diffuse hepatic steatosis and moderate ascites. Does have history of underlying LUCAS. Urine culture with Citrobacter freundii. UTI treated with ceftriaxone and finish the course of treatment. Blood culture x2 negative. Current knee NG in place with tube feed running. DVT prophylaxis with Lovenox (2) UTI (urinary tract infection): Code(s): N39.0 - Urinary tract infection, site not specified Status: Acute Assessment and Plan: No fever, normal WBC, likely contributory to altered mentation and possibly related to hypoglyce
[2023-06-12 18:54] LABS: Glucose Point of Care 88 mg/dl (65-105)
[2023-06-12] MEDS: MIRTAZAPINE 30 MG TABLET PO (20:01)
[2023-06-12 23:45] LABS: Glucose Point of Care 112 mg/dl (65-105)
[2023-06-13] VITALS (10 sets, daily range): BP systolic 101–124; BP diastolic 49–59; PULSE 96–113; RESP 14–28; TEMP 36–37.2; O2SAT 91–100
[2023-06-13 05:16] LABS: Glucose Point of Care 93 mg/dl (65-105)
[2023-06-13] MEDS: LEVOTHYROXINE SODIUM 75 MCG TABLET PO (05:37)
[2023-06-13 06:59] LABS: Basophils Percent Auto 0.5 % (0.2-1.2); Eosinophils Absolute Auto 0.1 K/mm3 (0-0.3); Eosinophils Percent Auto 2.6 % (0-4.4); Hematocrit 30.1 % (37.0-47.0); Hemoglobin 9.8 g/dL (12.0-15.0); Immature Granulocyte Absolute 0.01 K/mm3 (0.00-0.031); Immature Granulocyte Percent A 0.3 % (0-0.5); Lymphocytes Absolute Auto 0.84 K/mm3 (0.9-3.2); Mean Corpuscular HGB Conc 32.6 g/dl (32-36); Mean Corpuscular Volume 101.3 fl (80-100); Mean Platelet Volume 11.4 fl (7.4-10.4); Monocytes Absolute Auto 0.6 K/mm3 (0.1-0.6); Monocytes Percent Auto 16.2 % (2.6-8.5); Neutrophils Absolute Auto 2.2 K/mm3 (1.3-6.7); Neutrophils Percent Auto 58.4 % (45.5-73.1); Platelet Count Result 168 k/mm3 (150-375); Red Blood Count 2.97 M/mm3 (4.2-5.4); Red Cell Distribution Width 20.4 % (11.5-14.5); White Blood Count 3.8 K/mm3 (4.5-10.0)
[2023-06-13 07:23] LABS: Alanine Aminotransferase 34 U/L (6-35); Albumin Level 2.3 g/dL (3.5-5.1); Alkaline Phosphatase 133 U/L (38-126); Anion Gap -1 mmol/L (8-16); Aspartate Amino Transferase 93 U/L (14-36); Bilirubin,Total 0.6 mg/dL (0.2-1.3); Blood Urea Nitrogen 14 mg/dL (7-17); Carbon Dioxide 32 mmol/L (22-30); Chloride 101 mmol/L (98-107); Estimated CRCL calculation 58 ml/min; Estimated Glomerular Filt Rate > 60; Glucose 95 mg/dL (65-110); Magnesium 2.1 mg/dL (1.6-2.3); Potassium 3.9 mmol/L (3.4-5.0); Sodium 132 mmol/L (137-145)
[2023-06-13] MEDS: PANTOPRAZOLE SODIUM IV 40 MG VIAL IV PUSH ×2 (08:16→20:14)
[2023-06-13 11:26] LABS: Glucose Point of Care 89 mg/dl (65-105)
[2023-06-13] MEDS: LACTATED RINGERS 1,000 ML 150 ML IV CONT (13:26)
[2023-06-13] MEDS: ceFAZolin 1 GM/NS 50 ML 1 GM/50 ML BAG IVPB (13:27)
--- NOTE | 2023-06-13 14:04 | WPDANESEPPF ---
Anes - Initial Pre Proc Eval Procedure: Operation Date: 06/06/23 12:30 Proposed Procedures p Esophagogastroduodenoscopy - William Mckeon MD Operation Date: 06/13/23 15:15 Proposed Procedures p Percutaneous Endoscopic Gastrostomy - Avelino Cueto MD Date/Time: 06/13/23 14:04 Surgeon: Edinson Galindo MD Pre Op Diagnosis: Hypoglycemia,UTI,Decreased Oral Intake Patient Data Age: 73 Gender: F Height: 1.52 m Weight: 42.9 kg Last Vital Signs Temp 98 F 06/13/23 13:28 Pulse 110 H 06/13/23 13:28 Resp 16 06/13/23 13:28 BP 124/55 L 06/13/23 13:28 Pulse Ox 91 06/13/23 13:28 O2 Del Method Room Air 06/13/23 13:28 Allergies Allergy/AdvReac Type Severity Reaction Status Date / Time baclofen Allergy Mild Unknown Verified 06/06/23 10:21 cefuroxime Allergy Mild Unknown Verified 06/08/23 09:48 Iodinated Contrast Media Allergy Mild Flushing Verified 06/06/23 10:21 levofloxacin Allergy Mild FAST HR Verified 06/06/23 10:21 zolpidem Allergy Mild Anxiety Verified 06/06/23 10:21 Home Medications Medication Instructions Recorded Confirmed Type ascorbic acid (vitamin C) 250 mg 250 mg PO DAILY 06/05/23 06/05/23 History chewable tablet carvedilol 6.25 mg tablet 6.25 mg PO BID 06/05/23 06/05/23 History cholecalciferol (vitamin D3) 250 250 mcg PO DAILY 06/05/23 06/05/23 History mcg (10,000 unit) tablet cyclobenzaprine 10 mg tablet 10 mg PO TID 06/05/23 06/05/23 History hydrocodone 7.5 mg-acetaminophen 0.5 tablet PO BID 06/05/23 06/05/23 History 325 mg tablet levothyroxine 50 mcg tablet 50 mcg PO DAILY 06/05/23 06/05/23 History (Unithroid) mirtazapine 30 mg tablet 30 mg PO HS 06/05/23 06/05/23 History multivitamin 1 tablet PO DAILY 06/05/23 06/05/23 History ondansetron HCl 8 mg tablet 8 mg PO Q8H 06/05/23 06/05/23 History pantoprazole 40 mg tablet,delayed 40 mg PO BID 06/05/23 06/05/23 History release polyethylene glycol 400 0.25 % eye 1 drp ophthalmic (eye) BID PRN Dry 06/05/23 06/05/23 History gel drops Eyes potassium chloride 20 mEq 20 meq PO BID 06/05/23 06/05/23 History tablet,extended release(part/cryst) vitamin B complex (B 1 tablet PO DAILY 06/05/23 06/05/23 History Complex-Vitamin B12 tablet) Laboratory Tests 06/06/23 06/12/23 06/12/23 14:17 18:50 23:42 WBC RBC Hgb Hct MCV MCH MCHC RDW Plt Count MPV Immature Gran % (Auto) Neut % (Auto) Lymph % (Auto) Mil[place] % (Auto) Eos % (Auto) Baso % (Auto) Lymph # (Auto) [place] # (Auto) Eos # (Auto) Baso # (Auto) Abs Immat Gran (auto) Absolute Neuts (auto) Absolute Nucleated RBC Nucleated RBC % Sodium Potassium Chloride Carbon Dioxide Anion Gap BUN Creatinine Estim Creat Clear Calc Estimated GFR Glucose POC Capillary Glucose 88 mg/dl 112 H mg/dl (65-105) (65-105) Free Insulin 5.0 uIU/mL (1.5-14.9) Calcium Magnesium Total Bilirubin AST ALT Alkaline Phosphatase Total Protein Albumin 06/13/23 06/13/23 06/13/23 05:08 06:37 06:38 WBC 3.8 L K/mm3 (4.5-10.0) RBC 2.97 L M/mm3 (4.2-5.4) Hgb 9.8 L g/dL (12.0-15.0) Hct 30.1 L % (37.0-47.0) MCV 101.3 H fl (80-100) MCH 33.0 pg (26-34) MCHC 32.6 g/dl (32-36) RDW 20.4 H % (11.5-14.5) Plt Count 168 k/mm3 (150-375) MPV 11.4 H fl (7.4-10.4) Immature Gran % (Auto) 0.3 % (0-0.5) Neut % (Auto) 58.4 % (45.5-73.1)
[2023-06-13 14:07] LABS: Z Score Female -3.3 SD (-2.0 - +2.0)
[2023-06-13] MEDS: ONDANSETRON INJ 4 MG/2 ML VIAL IV PUSH (15:23)
[2023-06-13] MEDS: CYCLOBENZAPRINE HCL 10 MG TABLET PO (17:15)
[2023-06-13] MEDS: HYDROCORTISONE 10 MG TABLET PO (17:15)
[2023-06-13] MEDS: POTASSIUM CHLORIDE 20 MEQ PACKET (FOR LIQUID) PO (17:15)
[2023-06-13] MEDS: HYDROcodone/acetaminophen (*CRX) 7.5-325 MG TABLET 0.5 TAB PO (18:36)
[2023-06-13 19:51] LABS: Glucose Point of Care 97 mg/dl (65-105)
[2023-06-13] MEDS: MIRTAZAPINE 30 MG TABLET PO (20:14)
[2023-06-13 21:34] LABS: Glucose Point of Care 102 mg/dl (65-105)
[2023-06-13 23:50] LABS: Glucose Point of Care 115 mg/dl (65-105)
[2023-06-14] MEDS: LEVOTHYROXINE SODIUM 75 MCG TABLET PO (05:40)
[2023-06-14 06:00] VITALS: BP 119/62; PULSE 102; RESP 12; TEMP 37.2; O2SAT 96
[2023-06-14 06:30] LABS: Basophils Percent Auto 0.6 % (0.2-1.2); Eosinophils Absolute Auto 0.1 K/mm3 (0-0.3); Eosinophils Percent Auto 3.5 % (0-4.4); Hematocrit 29.2 % (37.0-47.0); Hemoglobin 9.5 g/dL (12.0-15.0); Immature Granulocyte Absolute 0.02 K/mm3 (0.00-0.031); Immature Granulocyte Percent A 0.6 % (0-0.5); Lymphocytes Absolute Auto 0.81 K/mm3 (0.9-3.2); Lymphocytes Percent Auto 23.4 % (18.3-44.2); Mean Corpuscular HGB Conc 32.5 g/dl (32-36); Mean Corpuscular Hemoglobin 33.5 pg (26-34); Mean Corpuscular Volume 102.8 fl (80-100); Mean Platelet Volume 11.7 fl (7.4-10.4); Monocytes Absolute Auto 0.5 K/mm3 (0.1-0.6); Monocytes Percent Auto 13.6 % (2.6-8.5); Neutrophils Percent Auto 58.3 % (45.5-73.1); Platelet Count Result 180 k/mm3 (150-375); Red Blood Count 2.84 M/mm3 (4.2-5.4); White Blood Count 3.5 K/mm3 (4.5-10.0)
[2023-06-14 06:42] LABS: Anion Gap -1 mmol/L (8-16); Blood Urea Nitrogen 14 mg/dL (7-17); Calcium 8.3 mg/dL (8.4-10.2); Carbon Dioxide 35 mmol/L (22-30); Chloride 101 mmol/L (98-107); Estimated CRCL calculation 58 ml/min; Estimated Glomerular Filt Rate > 60; Glucose 87 mg/dL (65-110); Magnesium 2.1 mg/dL (1.6-2.3); Potassium 4.2 mmol/L (3.4-5.0); Sodium 135 mmol/L (137-145)
[2023-06-14 06:52] LABS: Glucose Point of Care 96 mg/dl (65-105)
[2023-06-14] MEDS: ENOXAPARIN 40 MG/0.4 ML SYRINGE SUB-Q (09:46)
[2023-06-14] MEDS: PHENOL/SOD PHENO SPRAY CHERRY (*BKC) 1 SPRAY MUCOUS MEM (09:46)
[2023-06-14] MEDS: CHOLECALCIFEROL 1,000 UNITS TABLET 10000 UNITS PO (09:48)
[2023-06-14] MEDS: POTASSIUM CHLORIDE 20 MEQ PACKET (FOR LIQUID) PO ×2 (09:50→17:13)
[2023-06-14] MEDS: VITAMIN B COMPLEX CAPSULE 1 CAP PO (09:50)
[2023-06-14] MEDS: PANTOPRAZOLE SODIUM IV 40 MG VIAL IV PUSH ×2 (09:51→21:30)
[2023-06-14] MEDS: HYDROCORTISONE 10 MG TABLET PO ×2 (09:51→17:12)
[2023-06-14] MEDS: MULTIVITAMINS THERAPEUTIC TAB (*BKC) 1 TABLET PO (09:51)
[2023-06-14] MEDS: CYCLOBENZAPRINE HCL 10 MG TABLET PO ×3 (09:51→17:13)
[2023-06-14] MEDS: ASCORBIC ACID 250 MG TABLET PO (09:51)
--- NOTE | 2023-06-14 10:57 | PCOTNOTE ---
Patient refused treatment this session due to not sleeping much last night. Patient reported neighbor snored all night. Patient also reported her abdomen hurts when she breathes. This was reported to patients nurse.
[2023-06-14 11:41] LABS: Glucose Point of Care 104 mg/dl (65-105)
--- NOTE | 2023-06-14 12:00 | PCNFU ---
Nutrition Follow-Up Complete: Moderate protein calorie malnutrition related to inadequate energy intake as evidenced by noted significant wt loss of -22% x 6 months, poor po intake, and NFPE findings. Goal: Meet estimated needs. Pt current nutrition is Jevity 1.5 @ goal rate of 60ml/hr. Nutrition recommendation: continue with current plan of care at this time Last recorded weight is 42.9 kg. Bowel Motility: No BM recorded at this time Labs Reviewed: Hgb:9.5, HCT:29.2, NA:135, Cr:0.5 Meds Noted: remeron, KCL, protonix Skin: no skin issues noted Additional Notes: Pt now has a PEG placed for tube feedings. Currently running Jevity 1.5 @ 40ml/hr to advance to goal rate of 60ml/hr per MD orders. This totals 1980kcals, 84g protein, 1003ml fluid over 22 hrs. Plus 100ml q 4 hrs for a total of 1603ml daily. This is exceeding caloric needs at this time. Noted potential for po intake via diet although pt does not tolerated much po per nursing. Recommend to continue with current plan of care. Monitor tolerance to tube feedings. Consider decreasing goal rate of tube feedings. A more appropriate rate to match estimated needs is 50ml/hr to provied 1650kcals. Monitor intake, wt, labs. Follow up every Tuesday and Tuesday days.
--- NOTE | 2023-06-14 13:40 | PCOTNOTE ---
Patient was attempted again this afternoon. Patient refused to participate in services at this time. Patient verbalized she had a horrible night, has gotten no sleep and her stomach hurts where they placed the PEG tube.
[2023-06-14 14:00] VITALS: BP 113/69; PULSE 109; RESP 12; TEMP 36.6; O2SAT 93
[2023-06-14] MEDS: HYDROcodone/acetaminophen (*CRX) 7.5-325 MG TABLET 0.5 TAB PO (17:13)
[2023-06-14 19:30] LABS: Glucose Point of Care 115 mg/dl (65-105)
[2023-06-14 20:45] VITALS: BP 118/67; PULSE 85; RESP 16; TEMP 36.4; O2SAT 96
[2023-06-14] MEDS: MIRTAZAPINE 30 MG TABLET PO (21:29)
[2023-06-14] MEDS: ACETAMINOPHEN 500 MG TABLET 1000 MG PO (22:23)
[2023-06-15 00:13] LABS: Glucose Point of Care 118 mg/dl (65-105)
[2023-06-15 04:25] VITALS: BP 137/76; PULSE 106; RESP 16; TEMP 36.2; O2SAT 93
[2023-06-15] MEDS: LEVOTHYROXINE SODIUM 75 MCG TABLET PO (05:44)
[2023-06-15 07:48] LABS: Glucose Point of Care 113 mg/dl (65-105)
[2023-06-15] MEDS: HYDROcodone/acetaminophen (*CRX) 7.5-325 MG TABLET 0.5 TAB PO (09:27)
[2023-06-15] MEDS: CHOLECALCIFEROL 1,000 UNITS TABLET 10000 UNITS PO (09:28)
[2023-06-15] MEDS: CYCLOBENZAPRINE HCL 10 MG TABLET PO ×3 (09:28→18:00)
[2023-06-15] MEDS: HYDROCORTISONE 10 MG TABLET PO ×2 (09:29→17:45)
[2023-06-15] MEDS: ASCORBIC ACID 250 MG TABLET PO (09:29)
[2023-06-15] MEDS: PANTOPRAZOLE SODIUM IV 40 MG VIAL IV PUSH ×2 (09:29→20:26)
[2023-06-15] MEDS: POTASSIUM CHLORIDE 20 MEQ PACKET (FOR LIQUID) PO ×2 (09:29→18:00)
[2023-06-15] MEDS: MULTIVITAMINS THERAPEUTIC TAB (*BKC) 1 TABLET PO (09:29)
[2023-06-15] MEDS: ENOXAPARIN 40 MG/0.4 ML SYRINGE SUB-Q (09:29)
[2023-06-15 11:47] LABS: Glucose Point of Care 87 mg/dl (65-105)
--- NOTE | 2023-06-15 11:51 | PCOTNOTE ---
Patient refused treatment this session. Patient very adamant that she will not do therapy today. Communication with patient nurse on patients refusal.
[2023-06-15 12:25] LABS: Lactic Acid Reflex 1.1 mmol/L (0.7-2.0)
[2023-06-15] MEDS: polyethylene glycoL 3350 17 GM POWD.PACK PO (12:44)
[2023-06-15 14:00] VITALS: BP 118/64; PULSE 105; RESP 16; TEMP 36.8; O2SAT 100
--- NOTE | 2023-06-15 14:38 | PCPTNOTE ---
Patient refused treatment this session. Patient reported she was too exhausted to work with therapy. Patient reported she will work with PT tomorrow. Educated patient on the importance of therapy and sitting up and gave encouragement for participation, patient continued to refuse.
--- NOTE | 2023-06-15 17:11 | WPDGIPROGNO ---
Progress Note: A&P Assessment and Plan (1) Dysphagia: Code(s): R13.10 - Dysphagia, unspecified Status: Acute Assessment and Plan: she has had very poor oral intake. Consequently G-tube was placed yesterday. It is functioning well and she is currently receiving continuous tube feedings. Because her barium swallow did not show any significant amount of aspiration, she should be able to tolerate oral feedings and medications unless she begins show signs of aspiration. (2) Hypokalemia: Code(s): E87.6 - Hypokalemia Status: Acute Assessment and Plan: this was treated (3) Hypoglycemia: Code(s): E16.2 - Hypoglycemia, unspecified Status: Acute Assessment and Plan: This is being addressed with blood sugars and appropriate tube feedings. (4) Weight loss: Code(s): R63.4 - Abnormal weight loss Status: Acute Assessment and Plan: she has gradually lost at least 25 lb poor calorie intake Hopefully as she regained some weight with appropriate nutrition she will feel stronger and perhaps not need the tube feedings indefinitely. Subjective Date/time seen: 06/15/23 17:11 She appears comfortable. She denies pain. She is receiving continuous G-tube feedings. Exam Const: General: alert and malnourished Nutritional Appearance: malnourished Orientation/consciousness: patient oriented x3 Resp: Auscultation: clear to auscultation bilaterally Cardio: Rhythm: regular rhythm GI: Inspection: normal to inspection and other ( G-tube in left upper quadrant. No erythema) GI Palp: Yes Soft to palpation and No Tenderness to palpation present (GI) Auscultation: normal bowel sounds Neuro: General: patient oriented x3 Objective Data Vital Signs Vital Signs: Vital Signs - 24 hr 06/14/23 20:45 06/14/23 20:00 06/15/23 04:25 Temperature 36.4 C L 36.2 C L Pulse Rate 85 106 H Respiratory Rate 16 16 Blood Pressure 118/67 137/76 Pulse Oximetry 96 93 Oxygen Delivery Room Air 06/15/23 14:00 Temperature 36.8 C Pulse Rate 105 H Respiratory Rate 16 Blood Pressure 118/64 Pulse Oximetry 100 Oxygen Delivery Intake/Output Intake/Output: Intake & Output 06/12/23 06/13/23 06/14/23 06/15/23 23:59 23:59 23:59 23:59 Intake Total 1640 400 922 0 Output Total 650 1400 1650 950 Balance 007 -1000 -728 -950 Meds/Results Medications: Active Medications Generic Name Dose Route Start Last Admin Trade Name Freq PRN Reason Stop Dose Admin Hydrocodone Bitart/Acetaminophen 0.5 tab 06/05/23 17:41 06/15/23 09:27 Hydrocodone/Acetaminophen (*Crx) 7.5-325 Mg Tablet PO 0.5 tab BID PRN Administration pain 4-6 Albuterol 2 puff 06/05/23 17:54 Albuterol Sulfate (*Sp) Aerosol 1 Puff INHALATION Q6HRT PRN Shortness Of Breath Artificial Tears 1 drop 06/05/23 17:13 Artificial Tears Ophth Soln 15 Ml Bottle EACH EYE BID PRN Dry Eyes Ascorbic Acid 250 mg 06/06/23 09:00 06/15/23 09:29 Ascorbic Acid 250 Mg Tablet PO 250 mg DAILY HAL Administration Benzocaine 1 lozenge 06/11/23 20:05 06/11/23 20:38 Benzocaine/Menthol (*Bkc) 18 Ea Lozenge PO 1 lozenge PRN PRN Administration Sore Throat Cyclobenzaprine HCl 10 mg 06/06/23 09:00 06/15/23 12:45 Cyclobenzaprine Hcl 10 Mg Tablet PO 10 mg TID HAL Administration Dextrose 12.5 gm 06/06/23 14:12 Dextrose 50% 25 Gm/50 Ml Syringe IV PUSH PRN PRN Hypoglycemia Protocol Enoxaparin Sodium 40 mg 06/07/23 09:00 06/15/23 09:29 Enoxaparin 40 Mg/0.4 Ml Syringe SUB-Q 40 mg DAILY HAL Administration Glucagon 1 mg 06/06/23 14:12 Glucagon For Inj 1 Mg Vial IM PRN PRN Hypoglycemia Protocol Glucose 15 gm 06/06/23 14:12 Glucose Oral Gel 15 Gm Of Glucse In 37.5 Gm Tube PO PRN PRN Hypoglycemia Protocol Hydrocortisone 10 mg 06/11/23 17:00 06/15/23 09:29 Hydrocortisone 10 Mg
[2023-06-15 17:54] LABS: Glucose Point of Care 97 mg/dl (65-105)
[2023-06-15] MEDS: MIRTAZAPINE 30 MG TABLET PO (20:26)
[2023-06-15 21:05] VITALS: BP 118/64; PULSE 96; RESP 16; TEMP 36.5; O2SAT 98
[2023-06-15 22:16] VITALS: O2SAT 98
[2023-06-16 00:09] LABS: Glucose Point of Care 73 mg/dl (65-105)
--- NOTE | 2023-06-16 00:22 | PC.NURSE ---
blood sugar 73, order placed for continuous IV of D5 in NS @ 125
[2023-06-16] MEDS: DEXTROSE 5%/0.9% SOD CHL 1,000 ML 125 ML IV CONT (00:39)
[2023-06-16 05:37] VITALS: BP 145/76; PULSE 95; RESP 16; TEMP 36.2; O2SAT 97
[2023-06-16] MEDS: LEVOTHYROXINE SODIUM 75 MCG TABLET PO (05:41)
[2023-06-16 05:58] LABS: Glucose Point of Care 100 mg/dl (65-105)
[2023-06-16] MEDS: PANTOPRAZOLE SODIUM IV 40 MG VIAL IV PUSH ×2 (09:04→22:13)
[2023-06-16] MEDS: ENOXAPARIN 40 MG/0.4 ML SYRINGE SUB-Q (09:04)
[2023-06-16] MEDS: HYDROCORTISONE 10 MG TABLET PO ×2 (09:05→16:51)
[2023-06-16] MEDS: CYCLOBENZAPRINE HCL 10 MG TABLET PO ×3 (09:05→16:51)
[2023-06-16] MEDS: MULTIVITAMINS THERAPEUTIC TAB (*BKC) 1 TABLET PO (09:05)
[2023-06-16] MEDS: ASCORBIC ACID 250 MG TABLET PO (09:05)
[2023-06-16] MEDS: POTASSIUM CHLORIDE 20 MEQ PACKET (FOR LIQUID) PO ×2 (09:05→16:51)
[2023-06-16] MEDS: polyethylene glycoL 3350 17 GM POWD.PACK PO (09:37)
[2023-06-16 09:52] LABS: Hematocrit 30.8 % (37.0-47.0); Hemoglobin 9.8 g/dL (12.0-15.0); Mean Corpuscular HGB Conc 31.8 g/dl (32-36); Mean Corpuscular Hemoglobin 33.6 pg (26-34); Mean Corpuscular Volume 105.5 fl (80-100); Mean Platelet Volume 10.9 fl (7.4-10.4); Platelet Count Result 219 k/mm3 (150-375); Red Blood Count 2.92 M/mm3 (4.2-5.4); Red Cell Distribution Width 21.5 % (11.5-14.5); White Blood Count 3.4 K/mm3 (4.5-10.0)
[2023-06-16 10:04] LABS: Anion Gap -1 mmol/L (8-16); Blood Urea Nitrogen 16 mg/dL (7-17); Calcium 8.1 mg/dL (8.4-10.2); Carbon Dioxide 31 mmol/L (22-30); Chloride 103 mmol/L (98-107); Estimated CRCL calculation 58 ml/min; Estimated Glomerular Filt Rate > 60; Glucose 91 mg/dL (65-110); Potassium 4.3 mmol/L (3.4-5.0); Sodium 133 mmol/L (137-145)
[2023-06-16] MEDS: CHOLECALCIFEROL 1,000 UNITS TABLET 10000 UNITS PO (11:40)
[2023-06-16 11:47] LABS: Glucose Point of Care 90 mg/dl (65-105)
[2023-06-16 14:00] VITALS: BP 113/65; PULSE 105; RESP 14; TEMP 37.3; O2SAT 95
[2023-06-16 18:43] LABS: Glucose Point of Care 127 mg/dl (65-105)
[2023-06-16 21:13] VITALS: BP 114/62; PULSE 101; RESP 16; TEMP 36.3; O2SAT 97
[2023-06-16] MEDS: SENNA/DOCUSATE SODIUM TABLET 1 TAB PO (22:13)
[2023-06-16] MEDS: MIRTAZAPINE 30 MG TABLET PO (22:13)
[2023-06-16] MEDS: HYDROcodone/acetaminophen (*CRX) 7.5-325 MG TABLET 0.5 TAB PO (22:16)
[2023-06-16 23:45] LABS: Glucose Point of Care 118 mg/dl (65-105)
[2023-06-17] MEDS: LEVOTHYROXINE SODIUM 75 MCG TABLET PO (06:10)
[2023-06-17 06:23] VITALS: BP 123/67; PULSE 93; RESP 16; TEMP 36.6; O2SAT 96
[2023-06-17 09:19] LABS: Basophils Percent Auto 0.9 % (0.2-1.2); Eosinophils Absolute Auto 0.2 K/mm3 (0-0.3); Eosinophils Percent Auto 4.5 % (0-4.4); Hematocrit 32.3 % (37.0-47.0); Hemoglobin 10.3 g/dL (12.0-15.0); Immature Granulocyte Absolute 0.01 K/mm3 (0.00-0.031); Immature Granulocyte Percent A 0.3 % (0-0.5); Lymphocytes Absolute Auto 0.82 K/mm3 (0.9-3.2); Lymphocytes Percent Auto 24.3 % (18.3-44.2); Mean Corpuscular HGB Conc 31.9 g/dl (32-36); Mean Corpuscular Hemoglobin 33.9 pg (26-34); Mean Corpuscular Volume 106.3 fl (80-100); Mean Platelet Volume 11.4 fl (7.4-10.4); Monocytes Absolute Auto 0.4 K/mm3 (0.1-0.6); Monocytes Percent Auto 11.3 % (2.6-8.5); Neutrophils Percent Auto 58.7 % (45.5-73.1); Platelet Count Result 263 k/mm3 (150-375); Red Blood Count 3.04 M/mm3 (4.2-5.4); Red Cell Distribution Width 21.3 % (11.5-14.5); White Blood Count 3.4 K/mm3 (4.5-10.0)
[2023-06-17 09:31] LABS: Anion Gap 3 mmol/L (8-16); Blood Urea Nitrogen 15 mg/dL (7-17); Calcium 8.5 mg/dL (8.4-10.2); Carbon Dioxide 32 mmol/L (22-30); Chloride 101 mmol/L (98-107); Estimated CRCL calculation 58 ml/min; Estimated Glomerular Filt Rate > 60; Glucose 84 mg/dL (65-110); Magnesium 2.1 mg/dL (1.6-2.3); Potassium 3.7 mmol/L (3.4-5.0); Sodium 136 mmol/L (137-145)
[2023-06-17] MEDS: ENOXAPARIN 40 MG/0.4 ML SYRINGE SUB-Q (09:34)
[2023-06-17] MEDS: HYDROCORTISONE 10 MG TABLET PO ×2 (09:35→17:22)
[2023-06-17] MEDS: CYCLOBENZAPRINE HCL 10 MG TABLET PO ×3 (09:35→17:21)
[2023-06-17] MEDS: ASCORBIC ACID 250 MG TABLET PO (09:35)
[2023-06-17] MEDS: MULTIVITAMINS THERAPEUTIC TAB (*BKC) 1 TABLET PO (09:35)
[2023-06-17] MEDS: POTASSIUM CHLORIDE 20 MEQ PACKET (FOR LIQUID) PO ×2 (09:35→17:21)
[2023-06-17] MEDS: CHOLECALCIFEROL 1,000 UNITS TABLET 10000 UNITS PO (09:35)
[2023-06-17] MEDS: PANTOPRAZOLE SODIUM IV 40 MG VIAL IV PUSH ×2 (09:35→21:51)
[2023-06-17] MEDS: polyethylene glycoL 3350 17 GM POWD.PACK PO (09:37)
[2023-06-17] MEDS: ONDANSETRON INJ 4 MG/2 ML VIAL IV PUSH (09:48)
[2023-06-17 09:56] LABS: Anisocytosis 2+ (NORMAL); Hypochromasia 1+ (NORMAL); Macrocytosis 1+ (NORMAL); Platelet Estimate Adequate (Adequate)
[2023-06-17 09:57] LABS: Schistocytes None Seen (NORMAL); Stomatocytes 1+ (NORMAL)
--- NOTE | 2023-06-17 11:21 | PCNFU ---
Nutrition Follow-Up Complete: Moderate protein calorie malnutrition related to inadequate energy intake as evidenced by noted significant wt loss of -22% x 6 months, poor po intake, and NFPE findings. Goal: PO intake 50% or greater for meals and supplements - Not meeting goal Tolerance of tube feedings - Not meeting goal consistently Pt current nutrition is Jevity 1.5 running at 60 ml/h. Tube feeding was stopped due to intolerance, high residuals and advanced now back up to 60 ml/h (provides 1980 kcal, 84 g protein, 1003 ml free water.) Soft & bite sized regular diet: Intakes 10-25% meals. Nutrition recommendation: Cyclic feeding 8 pm-8 am: Jevity 1.5 @ 50 ml/h (12 h) to provide 900 kcal, 38 g protein, 456 ml free water. Flush tube 150 ml q 6 hours: total flushes 600 ml/day. Encourage PO intake. Recommend possible prokinetic such as Reglan to improve tolerance. Last recorded weight is 42.9 kg. Bowel Motility: +1 BM 06/16/23. Pt complains she can not go and had a Miralax today Labs Reviewed: Hgb 10.3, Hct 32.3, Na 136, Cre 0.5 Meds Noted:Remeron, Kcl, protonix, miralax Skin: WNL Additional Notes: Jevity 1.5 running at 60 ml/h provides ~130% estimated needs. pt was having some high residuals and complains of distension, feels like she needs to have bowel movement but not able to when she tries. Seems that rate may be too high. In addition, pt is eventually going to a SNF so it is preferable not to run a continuous feeding if possible so pt can participate in rehab. Discussed with patient (family not present). She does not have dysphagia and the goal is to be able to get off tube feedings eventually. In order to encourage PO intake, recommending a trial of cyclic feeding at night, providing about 60% estimated needs so patient can have a better appetite during the day. Communication with RN re: advancement of tube feedings. Residuals are acceptable now. Pt did tell me she was hungry yesterday and ate about half of spaghetti and got over full. Suggest possible prokinetic to improve feeding tolerance. Suggest PRN antiemetic for nausea after eating. Monitor intake, wt, labs. Follow up in 3 days.
[2023-06-17 11:32] LABS: Glucose Point of Care 97 mg/dl (65-105)
[2023-06-17 14:00] VITALS: BP 124/68; PULSE 98; RESP 16; TEMP 35.9; O2SAT 96
[2023-06-17 16:13] LABS: Glucose Point of Care 95 mg/dl (65-105)
[2023-06-17] MEDS: HYDROcodone/acetaminophen (*CRX) 7.5-325 MG TABLET 0.5 TAB PO (19:58)
[2023-06-17] MEDS: SENNA/DOCUSATE SODIUM TABLET 1 TAB PO (21:51)
[2023-06-17] MEDS: MIRTAZAPINE 30 MG TABLET PO (21:51)
[2023-06-17 22:00] VITALS: BP 133/82; PULSE 97; RESP 16; TEMP 35.7; O2SAT 97
[2023-06-18 00:33] LABS: Glucose Point of Care 79 mg/dl (65-105)
[2023-06-18 05:58] LABS: Glucose Point of Care 86 mg/dl (65-105)
[2023-06-18 06:00] VITALS: BP 126/67; PULSE 97; RESP 18; TEMP 35.7; O2SAT 99
[2023-06-18] MEDS: LEVOTHYROXINE SODIUM 75 MCG TABLET PO (06:41)
[2023-06-18 06:53] LABS: Basophils Percent Auto 0.8 % (0.2-1.2); Eosinophils Absolute Auto 0.2 K/mm3 (0-0.3); Eosinophils Percent Auto 3.9 % (0-4.4); Hematocrit 30.8 % (37.0-47.0); Hemoglobin 9.8 g/dL (12.0-15.0); Immature Granulocyte Absolute 0.02 K/mm3 (0.00-0.031); Immature Granulocyte Percent A 0.5 % (0-0.5); Lymphocytes Absolute Auto 0.83 K/mm3 (0.9-3.2); Lymphocytes Percent Auto 21.3 % (18.3-44.2); Mean Corpuscular HGB Conc 31.8 g/dl (32-36); Mean Corpuscular Hemoglobin 33.3 pg (26-34); Mean Corpuscular Volume 104.8 fl (80-100); Monocytes Absolute Auto 0.4 K/mm3 (0.1-0.6); Monocytes Percent Auto 10.5 % (2.6-8.5); Neutrophils Absolute Auto 2.5 K/mm3 (1.3-6.7); Platelet Count Result 258 k/mm3 (150-375); Red Blood Count 2.94 M/mm3 (4.2-5.4); Red Cell Distribution Width 20.7 % (11.5-14.5); White Blood Count 3.9 K/mm3 (4.5-10.0)
[2023-06-18 07:08] LABS: Anion Gap 0 mmol/L (8-16); Blood Urea Nitrogen 15 mg/dL (7-17); Calcium 8.5 mg/dL (8.4-10.2); Carbon Dioxide 30 mmol/L (22-30); Chloride 101 mmol/L (98-107); Estimated CRCL calculation 58 ml/min; Estimated Glomerular Filt Rate > 60; Glucose 77 mg/dL (65-110); Potassium 3.7 mmol/L (3.4-5.0); Sodium 131 mmol/L (137-145)
[2023-06-18] MEDS: ASCORBIC ACID 250 MG TABLET PO (08:33)
[2023-06-18] MEDS: PANTOPRAZOLE SODIUM IV 40 MG VIAL IV PUSH ×2 (08:33→20:15)
[2023-06-18] MEDS: CYCLOBENZAPRINE HCL 10 MG TABLET PO ×2 (08:33→17:06)
[2023-06-18] MEDS: HYDROCORTISONE 10 MG TABLET PO ×2 (08:33→17:06)
[2023-06-18] MEDS: MULTIVITAMINS THERAPEUTIC TAB (*BKC) 1 TABLET PO (08:33)
[2023-06-18] MEDS: VITAMIN B COMPLEX CAPSULE 1 CAP PO (08:33)
[2023-06-18] MEDS: CHOLECALCIFEROL 1,000 UNITS TABLET 10000 UNITS PO (08:34)
[2023-06-18] MEDS: ENOXAPARIN 40 MG/0.4 ML SYRINGE SUB-Q (08:34)
[2023-06-18] MEDS: POTASSIUM CHLORIDE 20 MEQ PACKET (FOR LIQUID) PO ×2 (08:34→17:06)
[2023-06-18] MEDS: polyethylene glycoL 3350 17 GM POWD.PACK PO (08:40)
--- NOTE | 2023-06-18 11:20 | P.PN_ITS ---
Progress Note: A&P Assessment and Plan (1) Problems with swallowing: Code(s): R13.10 - Dysphagia, unspecified Status: Acute Assessment and Plan: EGD normal. Barium swallow with normal oral and pharyngeal function but delayed mobility through esophagus. 06/07 NG tube ordered with central office operator supervisor consult for tube feeds to attempt to get patient off IV dextrose fluids. 06/10 Rounding: Patient awake but confused, patient was retaining urine, Lay was placed, this improved patient confusion and more coherent today. She is still not eating well, still having trouble swallowing, refused oral potassium. Tech fed patient lunch and she only ate some mashed potatoes and a little to drink. Patient still on IV fluids with dextrose. Albumin given due to low blood pressure. on 06/08 patient family was present in the room, discuss may bring food from home, if patient appetite does not improve, may consider PEG to supplement nutrients and calori and continue oral feeding, family will consider. today I called patient son Justice and he has agreed to place PEG, will consult GI, further recommendation to follow 06/11/23: Patient presented with generalized weakness and fatigue hypoglycemia. Evidence of UTI. Confusion baseline recurrent hypoglycemia cause requiring dextrose urinary retention Lay was placed eating trouble swallowing. Low blood pressure. Low p.o. intake. Consideration of PEG tube for nutrition in process. Low blood pressure has resolved. Mild anemia. A1c of 4.2. C-peptide high at 3.86 elevated lactic acid on admission. Hypoalbuminemia due to 2-3. Lipase is normal. Random cortisol level 14. Cosyntropin test within adequate increase cortisol level with ACTH suggestive of adrenal insufficiency. TSH 8 suggestive of hypothyroidism. Total T3 low T4 normal. Synthroid has increased MBS with normal swallowing function without penetration or aspiration. Reported weight loss of 25 lb. EGD 06/06/2023: Normal biopsies taken CT abdomen pelvis with diffuse hepatic steatosis and moderate ascites. Urine culture with Citrobacter freundii. UTI treated with ceftriaxone and finish the course of treatment. Blood culture x2 negative. Current knee NG in place with tube feed running. DVT prophylaxis with Lovenox will add hydrocortisone for adrenal insufficiency 06/12/2023: Patient presented with generalized weakness and fatigue hypoglycemia. Evidence of UTI. Confusion baseline recurrent hypoglycemia cause requiring dextrose urinary retention Lay was placed eating trouble swallowing. Low blood pressure. Low p.o. intake. Consideration of PEG tube for nutrition in process. Low blood pressure has resolved. Mild anemia. A1c of 4.2. C- peptide high at 3.86 elevated lactic acid on admission. Hypoalbuminemia due to 2-3. Lipase is normal. Random cortisol level 14. Cosyntropin test with inadequate increase cortisol level with ACTH suggestive of adrenal insufficiency. Will add hydrocortisone for adrenal insufficiency. CT showed adrenal glands were normal. TSH 8 suggestive of hypothyroidism. Total T3 low T4 normal. Synthroid dose has increased. C-peptide came back mildly elevated however CT abdomen with contrast was negative for any mass suggestive of insulinoma. MBS with normal swallowing function without penetration or aspiration. Reported weight loss of 25 lb. EGD 06/06/2023: Normal biopsies taken CT abdomen pelvis with diffuse hepatic steatosis and moderate ascites. Does have history of underlying LUCAS. Urine culture with Citrobacter freundii. UTI treated with ceftriaxone and finish the course of treatment. Blood culture x2 negative. Current knee NG in place with tube feed running. DVT prophylaxis with Lovenox 06/13/2023:Patient presented w
[2023-06-18 11:41] LABS: Glucose Point of Care 97 mg/dl (65-105)
[2023-06-18 14:00] VITALS: BP 122/67; PULSE 101; RESP 18; TEMP 35.7; O2SAT 97
--- NOTE | 2023-06-18 14:55 | PCPTNOTE ---
The patient treatment was not able to be completed on this date due to patient stating that she was too tired this afternoon. Patient stated that she did not sleep well last night and she just got settled to rest. Will plan to continue treatment per plan of care.
[2023-06-18 17:37] LABS: Glucose Point of Care 86 mg/dl (65-105)
[2023-06-18] MEDS: MIRTAZAPINE 30 MG TABLET PO (20:15)
[2023-06-18] MEDS: SENNA/DOCUSATE SODIUM TABLET 1 TAB PO (20:15)
[2023-06-18] MEDS: HYDROcodone/acetaminophen (*CRX) 7.5-325 MG TABLET 0.5 TAB PO (20:18)
[2023-06-18 21:40] VITALS: O2SAT 98
[2023-06-18 22:00] VITALS: BP 121/72; PULSE 99; RESP 16; TEMP 35.5; O2SAT 98
[2023-06-18 23:43] LABS: Glucose Point of Care 107 mg/dl (65-105)
[2023-06-19 06:00] VITALS: BP 119/57; PULSE 97; RESP 16; TEMP 35.8; O2SAT 97
[2023-06-19] MEDS: LEVOTHYROXINE SODIUM 75 MCG TABLET PO (06:00)
[2023-06-19 06:05] LABS: Glucose Point of Care 79 mg/dl (65-105)
[2023-06-19 06:32] LABS: Eosinophils Absolute Auto 0.2 K/mm3 (0-0.3); Eosinophils Percent Auto 3.7 % (0-4.4); Immature Granulocyte Absolute 0.01 K/mm3 (0.00-0.031); Immature Granulocyte Percent A 0.2 % (0-0.5); Lymphocytes Absolute Auto 0.94 K/mm3 (0.9-3.2); Lymphocytes Percent Auto 23.4 % (18.3-44.2); Mean Corpuscular HGB Conc 32.3 g/dl (32-36); Mean Corpuscular Hemoglobin 33.4 pg (26-34); Mean Corpuscular Volume 103.7 fl (80-100); Mean Platelet Volume 11.3 fl (7.4-10.4); Monocytes Absolute Auto 0.5 K/mm3 (0.1-0.6); Monocytes Percent Auto 12.4 % (2.6-8.5); Neutrophils Absolute Auto 2.4 K/mm3 (1.3-6.7); Neutrophils Percent Auto 59.3 % (45.5-73.1); Platelet Count Result 286 k/mm3 (150-375); Red Blood Count 2.99 M/mm3 (4.2-5.4); Red Cell Distribution Width 20.3 % (11.5-14.5)
[2023-06-19 06:51] LABS: Anion Gap 1 mmol/L (8-16); Blood Urea Nitrogen 15 mg/dL (7-17); Calcium 8.4 mg/dL (8.4-10.2); Carbon Dioxide 33 mmol/L (22-30); Chloride 101 mmol/L (98-107); Estimated CRCL calculation 58 ml/min; Estimated Glomerular Filt Rate > 60; Glucose 80 mg/dL (65-110); Magnesium 2.2 mg/dL (1.6-2.3); Potassium 3.7 mmol/L (3.4-5.0); Sodium 135 mmol/L (137-145)
[2023-06-19] MEDS: ASCORBIC ACID 250 MG TABLET PO (09:15)
[2023-06-19] MEDS: POTASSIUM CHLORIDE 20 MEQ PACKET (FOR LIQUID) PO ×2 (09:15→17:17)
[2023-06-19] MEDS: CHOLECALCIFEROL 1,000 UNITS TABLET 10000 UNITS PO (09:15)
[2023-06-19] MEDS: polyethylene glycoL 3350 17 GM POWD.PACK PO (09:15)
[2023-06-19] MEDS: CYCLOBENZAPRINE HCL 10 MG TABLET PO ×3 (09:16→17:17)
[2023-06-19] MEDS: VITAMIN B COMPLEX CAPSULE 1 CAP PO (09:16)
[2023-06-19] MEDS: HYDROCORTISONE 10 MG TABLET PO ×2 (09:16→17:17)
[2023-06-19] MEDS: MULTIVITAMINS THERAPEUTIC TAB (*BKC) 1 TABLET PO (09:16)
[2023-06-19] MEDS: PANTOPRAZOLE SODIUM IV 40 MG VIAL IV PUSH ×2 (09:16→19:48)
[2023-06-19] MEDS: ENOXAPARIN 40 MG/0.4 ML SYRINGE SUB-Q (09:16)
[2023-06-19] MEDS: HYDROcodone/acetaminophen (*CRX) 7.5-325 MG TABLET 0.5 TAB PO ×2 (09:29→19:52)
[2023-06-19] MEDS: ONDANSETRON INJ 4 MG/2 ML VIAL IV PUSH (09:30)
--- NOTE | 2023-06-19 10:55 | WPDPN ---
Progress Note: A&P Assessment and Plan (1) Problems with swallowing: Code(s): R13.10 - Dysphagia, unspecified Status: Acute Assessment and Plan: EGD normal. Barium swallow with normal oral and pharyngeal function but delayed mobility through esophagus. 06/07 NG tube ordered with public health clinical nurse specialist consult for tube feeds to attempt to get patient off IV dextrose fluids. 06/10 Rounding: Patient awake but confused, patient was retaining urine, Lay was placed, this improved patient confusion and more coherent today. She is still not eating well, still having trouble swallowing, refused oral potassium. Tech fed patient lunch and she only ate some mashed potatoes and a little to drink. Patient still on IV fluids with dextrose. Albumin given due to low blood pressure. on 06/08 patient family was present in the room, discuss may bring food from home, if patient appetite does not improve, may consider PEG to supplement nutrients and calori and continue oral feeding, family will consider. today I called patient son Justice and he has agreed to place PEG, will consult GI, further recommendation to follow 06/11/23: Patient presented with generalized weakness and fatigue hypoglycemia. Evidence of UTI. Confusion baseline recurrent hypoglycemia cause requiring dextrose urinary retention Lay was placed eating trouble swallowing. Low blood pressure. Low p.o. intake. Consideration of PEG tube for nutrition in process. Low blood pressure has resolved. Mild anemia. A1c of 4.2. C-peptide high at 3.86 elevated lactic acid on admission. Hypoalbuminemia due to 2-3. Lipase is normal. Random cortisol level 14. Cosyntropin test within adequate increase cortisol level with ACTH suggestive of adrenal insufficiency. TSH 8 suggestive of hypothyroidism. Total T3 low T4 normal. Synthroid has increased MBS with normal swallowing function without penetration or aspiration. Reported weight loss of 25 lb. EGD 06/06/2023: Normal biopsies taken CT abdomen pelvis with diffuse hepatic steatosis and moderate ascites. Urine culture with Citrobacter freundii. UTI treated with ceftriaxone and finish the course of treatment. Blood culture x2 negative. Current knee NG in place with tube feed running. DVT prophylaxis with Lovenox will add hydrocortisone for adrenal insufficiency 06/12/2023: Patient presented with generalized weakness and fatigue hypoglycemia. Evidence of UTI. Confusion baseline recurrent hypoglycemia cause requiring dextrose urinary retention Lay was placed eating trouble swallowing. Low blood pressure. Low p.o. intake. Consideration of PEG tube for nutrition in process. Low blood pressure has resolved. Mild anemia. A1c of 4.2. C-peptide high at 3.86 elevated lactic acid on admission. Hypoalbuminemia due to 2-3. Lipase is normal. Random cortisol level 14. Cosyntropin test with inadequate increase cortisol level with ACTH suggestive of adrenal insufficiency. Will add hydrocortisone for adrenal insufficiency. CT showed adrenal glands were normal. TSH 8 suggestive of hypothyroidism. Total T3 low T4 normal. Synthroid dose has increased. C-peptide came back mildly elevated however CT abdomen with contrast was negative for any mass suggestive of insulinoma. MBS with normal swallowing function without penetration or aspiration. Reported weight loss of 25 lb. EGD 06/06/2023: Normal biopsies taken CT abdomen pelvis with diffuse hepatic steatosis and moderate ascites. Does have history of underlying LUCAS. Urine culture with Citrobacter freundii. UTI treated with ceftriaxone and finish the course of treatment. Blood culture x2 negative. Current knee NG in place with tube feed running. DVT prophylaxis with Lovenox 06/13/2023:Patient presented with generalized weakness and fatigue hypoglycemia. Evidence of UTI. Confusion baseline recurrent hypoglycemia cause requiring dextrose urinary retention Lay was placed eating trouble swallowing. Low blood pressure.
[2023-06-19 11:54] LABS: Glucose Point of Care 130 mg/dl (65-105)
[2023-06-19 14:00] VITALS: BP 115/95; PULSE 105; RESP 18; TEMP 36.5; O2SAT 100
[2023-06-19 18:06] LABS: Glucose Point of Care 117 mg/dl (65-105)
[2023-06-19] MEDS: MIRTAZAPINE 30 MG TABLET PO (19:48)
[2023-06-19] MEDS: SENNA/DOCUSATE SODIUM TABLET 1 TAB PO (19:48)
[2023-06-19 22:00] VITALS: BP 149/74; PULSE 92; RESP 18; TEMP 35.5; O2SAT 98
[2023-06-20 00:14] LABS: Glucose Point of Care 113 mg/dl (65-105)
[2023-06-20] MEDS: LEVOTHYROXINE SODIUM 75 MCG TABLET PO (05:53)
[2023-06-20 06:00] VITALS: BP 101/56; PULSE 95; RESP 20; TEMP 35.7; O2SAT 97
[2023-06-20 06:36] LABS: Basophils Percent Auto 0.8 % (0.2-1.2); Eosinophils Absolute Auto 0.1 K/mm3 (0-0.3); Eosinophils Percent Auto 2.8 % (0-4.4); Hematocrit 31.6 % (37.0-47.0); Immature Granulocyte Absolute 0.02 K/mm3 (0.00-0.031); Immature Granulocyte Percent A 0.5 % (0-0.5); Lymphocytes Absolute Auto 1.02 K/mm3 (0.9-3.2); Lymphocytes Percent Auto 26.4 % (18.3-44.2); Mean Corpuscular HGB Conc 31.6 g/dl (32-36); Mean Corpuscular Hemoglobin 33.7 pg (26-34); Mean Corpuscular Volume 106.4 fl (80-100); Monocytes Absolute Auto 0.4 K/mm3 (0.1-0.6); Monocytes Percent Auto 11.4 % (2.6-8.5); Neutrophils Absolute Auto 2.3 K/mm3 (1.3-6.7); Neutrophils Percent Auto 58.1 % (45.5-73.1); Platelet Count Result 287 k/mm3 (150-375); Red Blood Count 2.97 M/mm3 (4.2-5.4); Red Cell Distribution Width 20.2 % (11.5-14.5); White Blood Count 3.9 K/mm3 (4.5-10.0)
[2023-06-20 06:45] LABS: Anion Gap 3 mmol/L (8-16); Blood Urea Nitrogen 17 mg/dL (7-17); Calcium 8.5 mg/dL (8.4-10.2); Carbon Dioxide 31 mmol/L (22-30); Chloride 100 mmol/L (98-107); Estimated CRCL calculation 58 ml/min; Estimated Glomerular Filt Rate > 60; Glucose 84 mg/dL (65-110); Magnesium 2.1 mg/dL (1.6-2.3); Sodium 134 mmol/L (137-145)
[2023-06-20 06:49] LABS: Glucose Point of Care 100 mg/dl (65-105)
[2023-06-20] MEDS: HYDROCORTISONE 10 MG TABLET PO ×2 (08:17→17:15)
[2023-06-20] MEDS: PANTOPRAZOLE SODIUM IV 40 MG VIAL IV PUSH ×2 (08:17→19:44)
[2023-06-20] MEDS: CYCLOBENZAPRINE HCL 10 MG TABLET PO ×3 (08:18→17:15)
[2023-06-20] MEDS: ENOXAPARIN 40 MG/0.4 ML SYRINGE SUB-Q (08:18)
[2023-06-20 11:29] LABS: Glucose Point of Care 124 mg/dl (65-105)
--- NOTE | 2023-06-20 12:23 | PM.DS ---
DS: Admitting Diagnosis Discharge Date 06/20/2023 Admitting Diagnosis Hypoglycemic event DS: Discharge Diagnosis Discharge Diagnosis (1) Problems with swallowing: Code(s): R13.10 - Dysphagia, unspecified Status: Acute Assessment and Plan: EGD normal. Barium swallow with normal oral and pharyngeal function but delayed mobility through esophagus. 06/07 NG tube ordered with air hole driller consult for tube feeds to attempt to get patient off IV dextrose fluids. 06/10 Rounding: Patient awake but confused, patient was retaining urine, Lay was placed, this improved patient confusion and more coherent today. She is still not eating well, still having trouble swallowing, refused oral potassium. Tech fed patient lunch and she only ate some mashed potatoes and a little to drink. Patient still on IV fluids with dextrose. Albumin given due to low blood pressure. on 06/08 patient family was present in the room, discuss may bring food from home, if patient appetite does not improve, may consider PEG to supplement nutrients and calori and continue oral feeding, family will consider. today I called patient son Justice and he has agreed to place PEG, will consult GI, further recommendation to follow 06/11/23: Patient presented with generalized weakness and fatigue hypoglycemia. Evidence of UTI. Confusion baseline recurrent hypoglycemia cause requiring dextrose urinary retention Lay was placed eating trouble swallowing. Low blood pressure. Low p.o. intake. Consideration of PEG tube for nutrition in process. Low blood pressure has resolved. Mild anemia. A1c of 4.2. C-peptide high at 3.86 elevated lactic acid on admission. Hypoalbuminemia due to 2-3. Lipase is normal. Random cortisol level 14. Cosyntropin test within adequate increase cortisol level with ACTH suggestive of adrenal insufficiency. TSH 8 suggestive of hypothyroidism. Total T3 low T4 normal. Synthroid has increased MBS with normal swallowing function without penetration or aspiration. Reported weight loss of 25 lb. EGD 06/06/2023: Normal biopsies taken CT abdomen pelvis with diffuse hepatic steatosis and moderate ascites. Urine culture with Citrobacter freundii. UTI treated with ceftriaxone and finish the course of treatment. Blood culture x2 negative. Current knee NG in place with tube feed running. DVT prophylaxis with Lovenox will add hydrocortisone for adrenal insufficiency 06/12/2023: Patient presented with generalized weakness and fatigue hypoglycemia. Evidence of UTI. Confusion baseline recurrent hypoglycemia cause requiring dextrose urinary retention Lay was placed eating trouble swallowing. Low blood pressure. Low p.o. intake. Consideration of PEG tube for nutrition in process. Low blood pressure has resolved. Mild anemia. A1c of 4.2. C-peptide high at 3.86 elevated lactic acid on admission. Hypoalbuminemia due to 2-3. Lipase is normal. Random cortisol level 14. Cosyntropin test with inadequate increase cortisol level with ACTH suggestive of adrenal insufficiency. Will add hydrocortisone for adrenal insufficiency. CT showed adrenal glands were normal. TSH 8 suggestive of hypothyroidism. Total T3 low T4 normal. Synthroid dose has increased. C-peptide came back mildly elevated however CT abdomen with contrast was negative for any mass suggestive of insulinoma. MBS with normal swallowing function without penetration or aspiration. Reported weight loss of 25 lb. EGD 06/06/2023: Normal biopsies taken CT abdomen pelvis with diffuse hepatic steatosis and moderate ascites. Does have history of underlying LUCAS. Urine culture with Citrobacter freundii. UTI treated with ceftriaxone and finish the course of treatment. Blood culture x2 negative. Current knee NG in place with tube feed running. DVT prophylaxis with Lovenox 06/13/2023:Patient presented with generalized weakness and fatigue hypoglycemia. Evidence of UTI. Confusion baseline recurrent hypoglycemia cause req
[2023-06-20 14:00] VITALS: BP 140/75; PULSE 103; RESP 18; TEMP 36.1; O2SAT 98
[2023-06-20 18:13] LABS: Glucose Point of Care 103 mg/dl (65-105)
[2023-06-20] MEDS: SENNA/DOCUSATE SODIUM TABLET 1 TAB PO (19:44)
[2023-06-20] MEDS: MIRTAZAPINE 30 MG TABLET PO (19:44)
[2023-06-20] MEDS: HYDROcodone/acetaminophen (*CRX) 7.5-325 MG TABLET 0.5 TAB PO (19:47)
[2023-06-20 21:13] VITALS: BP 133/64; PULSE 101; RESP 16; TEMP 36.2; O2SAT 94
[2023-06-20 23:26] LABS: Glucose Point of Care 111 mg/dl (65-105)
[2023-06-21 05:01] LABS: Glucose Point of Care 66 mg/dl (65-105)
[2023-06-21] MEDS: LEVOTHYROXINE SODIUM 75 MCG TABLET PO (05:42)
[2023-06-21 05:44] VITALS: BP 108/61; PULSE 94; RESP 16; TEMP 36.2; O2SAT 98
[2023-06-21 05:54] LABS: Glucose Point of Care 99 mg/dl (65-105)
[2023-06-21 07:18] LABS: Eosinophils Absolute Auto 0.1 K/mm3 (0-0.3); Eosinophils Percent Auto 2.3 % (0-4.4); Hematocrit 31.6 % (37.0-47.0); Immature Granulocyte Absolute 0.01 K/mm3 (0.00-0.031); Immature Granulocyte Percent A 0.3 % (0-0.5); Lymphocytes Absolute Auto 0.94 K/mm3 (0.9-3.2); Lymphocytes Percent Auto 24.3 % (18.3-44.2); Mean Corpuscular HGB Conc 31.6 g/dl (32-36); Mean Corpuscular Hemoglobin 33.2 pg (26-34); Mean Platelet Volume 11.4 fl (7.4-10.4); Monocytes Absolute Auto 0.5 K/mm3 (0.1-0.6); Monocytes Percent Auto 12.4 % (2.6-8.5); Neutrophils Absolute Auto 2.3 K/mm3 (1.3-6.7); Neutrophils Percent Auto 59.7 % (45.5-73.1); Platelet Count Result 304 k/mm3 (150-375); Red Blood Count 3.01 M/mm3 (4.2-5.4); Red Cell Distribution Width 19.9 % (11.5-14.5); White Blood Count 3.9 K/mm3 (4.5-10.0)
[2023-06-21 07:31] LABS: Anion Gap 2 mmol/L (8-16); Blood Urea Nitrogen 16 mg/dL (7-17); Calcium 8.4 mg/dL (8.4-10.2); Carbon Dioxide 31 mmol/L (22-30); Chloride 102 mmol/L (98-107); Estimated CRCL calculation 58 ml/min; Estimated Glomerular Filt Rate > 60; Glucose 71 mg/dL (65-110); Magnesium 2.1 mg/dL (1.6-2.3); Potassium 3.5 mmol/L (3.4-5.0); Sodium 135 mmol/L (137-145)
[2023-06-21 09:25] VITALS: PULSE 94; RESP 16; O2SAT 98
[2023-06-21] MEDS: MULTIVITAMINS THERAPEUTIC TAB (*BKC) 1 TABLET PO (09:25)
[2023-06-21] MEDS: CYCLOBENZAPRINE HCL 10 MG TABLET PO (09:25)
[2023-06-21] MEDS: ASCORBIC ACID 250 MG TABLET PO (09:25)
[2023-06-21] MEDS: HYDROCORTISONE 10 MG TABLET PO (09:25)
[2023-06-21] MEDS: CHOLECALCIFEROL 1,000 UNITS TABLET 10000 UNITS PO (09:25)
[2023-06-21] MEDS: POTASSIUM CHLORIDE 20 MEQ PACKET (FOR LIQUID) 40 MEQ PO (09:26)
[2023-06-21] MEDS: POTASSIUM CHLORIDE 20 MEQ PACKET (FOR LIQUID) PO (09:26)
[2023-06-21] MEDS: ENOXAPARIN 40 MG/0.4 ML SYRINGE SUB-Q (09:26)
[2023-06-21] MEDS: PANTOPRAZOLE SODIUM IV 40 MG VIAL IV PUSH (09:26)
[2023-06-21] MEDS: ONDANSETRON INJ 4 MG/2 ML VIAL IV PUSH (09:31)
[2023-06-21] MEDS: HYDROcodone/acetaminophen (*CRX) 7.5-325 MG TABLET 0.5 TAB PO (09:31)
--- NOTE | 2023-06-21 11:45 | PCNFU ---
Nutrition Follow-Up Complete: Moderate protein calorie malnutrition related to inadequate energy intake as evidenced by noted significant wt loss of -22% x 6 months, poor po intake, and NFPE findings. Goal:PO intake 50% or greater for meals and supplements Tolerance of tube feedings Pt is meeting goal, continue with same goal. Pt current nutrition is soft and bite sized diet, TF: Jevity 1.5 @50ml/hr 8pm-8am continuous feeds. Nutrition recommendation: Continue with current plan of care. Last recorded weight is 42.9 kg. Bowel Motility: + BM 06/21 Labs Reviewed: Hgb:10, HCT:31.6, NA:135, Cr: 0.5 Meds Noted: Remeron, KCL, protonix, miralax Skin: no skin issues noted Additional Notes: Pt on a soft and bite sized diet, intake good at this time at 75-100% of meals. Cyclic feeding 8 pm-8 am: Jevity 1.5 @ 50 ml/h (12 h) to provide 900 kcal, 38 g protein, 456 ml free water. Flush tube 150 ml q 6 hours: total flushes 600 ml/day. Pt tolerating well overall. May need to decrease night feedings to 40ml/hr as pt is improving on po intake. Monitor intake, wt, labs. Follow up every Tuesday and Tuesday.
--- NOTE | 2023-06-21 12:16 | PC.NURSE ---
Addendum entered by Nakia Parnell RN 06/21/23 12:30: Tube volumes, 10 residual, 200 with meds and potassium, 150 flush. Original Note: Pt discharged with family to [facility]. Pt has been anxious about discharging with new PEG tube. Pt reports feeling full due to feeding. Pt educated that, the feeling of fullness can come from tube feeding. Pt denies taking medication orally and only wants them through the PEG tube. Report was called to Anne-Marie at facility. Pt's IV went bad and was removed tip intact. Pt tolerated well. Pt was monitored for any changes in status while here.
== END 2023-06-21 12:10 | DRG 392 ==
LOC: ANHED 14:12 → ANH3MEDSUR 15:00 → ANHIMU 06-06 15:28 → ANH3MEDSUR 06-09 17:20
PROVIDERS: Internal Medicine Gastroenterology; Nurse Practitioner; Admitting Provider Family Medicine; Emergency Provider Emergency Medicine; PCP Family Medicine; Visit Provider Internal Medicine
PROC: 0DJ08ZZ Inspection of Upper Intestinal Tract, Via Natural or Artificial Opening Endoscopic (ICD-10-PCS; CPT 43235; principal; 2023-06-06 12:30)
PROC: 0DH63UZ Insertion of Feeding Device into Stomach, Percutaneous Approach (ICD-10-PCS; CPT 43246; principal; 2023-06-13 15:15)
DX: R13.19 Other dysphagia (principal); N39.0 Urinary tract infection, site not specified; E87.1 Hypo-osmolality and hyponatremia; E44.0 Moderate protein-calorie malnutrition; Z68.1 Body mass index [BMI] 19.9 or less, adult; B96.89 Other specified bacterial agents as the cause of diseases classified elsewhere; E16.2 Hypoglycemia, unspecified; K29.70 Gastritis, unspecified, without bleeding; E87.6 Hypokalemia; K21.9 Gastro-esophageal reflux disease without esophagitis; I10 Essential (primary) hypertension; J44.9 Chronic obstructive pulmonary disease, unspecified; D64.9 Anemia, unspecified; E06.3 Autoimmune thyroiditis; F32.A Depression, unspecified; R63.4 Abnormal weight loss; F41.8 Other specified anxiety disorders; K58.2 Mixed irritable bowel syndrome; K76.0 Fatty (change of) liver, not elsewhere classified; Z98.49 Cataract extraction status, unspecified eye; Z96.1 Presence of intraocular lens; Z90.49 Acquired absence of other specified parts of digestive tract; Z86.73 Personal history of transient ischemic attack (TIA), and cerebral infarction without residual deficits; Z87.891 Personal history of nicotine dependence
CPT/HCPCS: 36415; 43246; 70450; 71046; 74018; 74177; 80048; 80053; 80069; 80076; 81001; 82088; 82533; 82948; 83036; 83527; 83605; 83690; 83735; 83880; 84100; 84244; 84305; 84439; 84443; 84480; 84484; 84681; 85025; 85027; 86337; 87040; 87077; 87081; 87086; 87186; 92611; 93005; 96361; 96365; 96366; 96367; 96372; 96375; 96376; 97110; 97116; 97161; 97165; 97530; 97535; 99285; A9270; C9113; G0378; J0690; J0696; J1610; J1650; J2405; J2704; J3475; J3480; J7040; J7042; J7050; J7070; J7120; J7121; P9045; Q9967

== ENCOUNTER 2023-09-08 07:23 | Emergency (ER) | payer MEDICARE, SELFPAY ==
[2023-09-08 07:25] VITALS: BP 162/98; PULSE 97; RESP 16; TEMP 36.5; O2SAT 97
[2023-09-08 07:34] VITALS: BP 158/87; PULSE 57; RESP 16; O2SAT 100
[2023-09-08 08:14] VITALS: BP 134/70; PULSE 60; RESP 16; O2SAT 99
--- NOTE | 2023-09-08 15:34 | ED.SKABFB ---
HPI - Skin/Abscess/Foreign Bdy General Chief complaint: Skin/Abscess/Foreign Body Stated complaint: issues at g-tube site Time Seen by Provider: 09/08/23 07:38 History of Present Illness HPI narrative: Patient has had a G-tube since end of May and often has some issues with it, she is worried because there seems to be some uncomfortable not of tissue or redness at the G-tube site. No fevers or chills. She is still using it without issue. Related Data Home Medications Medication Instructions Recorded Confirmed ascorbic acid (vitamin C) 250 mg 250 mg PO DAILY 06/05/23 06/05/23 chewable tablet carvedilol 6.25 mg tablet 6.25 mg PO BID 06/05/23 06/05/23 cholecalciferol (vitamin D3) 250 250 mcg PO DAILY 06/05/23 06/05/23 mcg (10,000 unit) tablet cyclobenzaprine 10 mg tablet 10 mg PO TID 06/05/23 06/05/23 levothyroxine 50 mcg tablet 50 mcg PO DAILY 06/05/23 06/05/23 (Unithroid) mirtazapine 30 mg tablet 30 mg PO HS 06/05/23 06/05/23 multivitamin 1 tablet PO DAILY 06/05/23 06/05/23 ondansetron HCl 8 mg tablet 8 mg PO Q8H 06/05/23 06/05/23 pantoprazole 40 mg tablet,delayed 40 mg PO BID 06/05/23 06/05/23 release polyethylene glycol 400 0.25 % eye 1 drp ophthalmic (eye) BID PRN Dry 06/05/23 06/05/23 gel drops Eyes potassium chloride 20 mEq 20 meq PO BID 06/05/23 06/05/23 tablet,extended release(part/cryst) vitamin B complex (B 1 tablet PO DAILY 06/05/23 06/05/23 Complex-Vitamin B12 tablet) Allergies Allergy/AdvReac Type Severity Reaction Status Date / Time baclofen Allergy Mild Unknown Verified 09/08/23 07:34 cefuroxime Allergy Mild Unknown Verified 09/08/23 07:34 Iodinated Contrast Media Allergy Mild Flushing Verified 09/08/23 07:34 levofloxacin Allergy Mild FAST HR Verified 09/08/23 07:34 zolpidem AdvReac Mild Anxiety Verified 09/08/23 07:34 Review of Systems Review of Systems: CONST: No fever. HEENT: No sore throat C/V: No chest pain RESP: No cough GI: No abdominal pain, nausea or vomiting : No dysuria. M/S: No joint pain. SKIN: Painful red rash around G-tube NEURO: [No headache or focal numbness or weakness] PSYCH: [No depression] [facility] Past Medical History Medical History (Updated 09/08/23 @ 08:08 by Cris Granados MD) Chronic GERD COPD (chronic obstructive pulmonary disease) CVA (cerebral vascular accident) Depression with anxiety Renee's disease Hemorrhagic eye History of COPD History of depression History of hypertension History of hypothyroidism Hypertension Hypokalemia Hypothyroidism Irritable bowel syndrome Mixed NAFLD (nonalcoholic fatty liver disease) Stress incontinence Weight loss Surgical History Surgical History H/O: hysterectomy History of cataract extraction with lens replacement Hx of cholecystectomy Previous back surgery X2 Family History Family History Other Cancer Mother Heart disease Father Thyroid disease Sibling Diabetes mellitus Social History Social History Social History: The patient lives home alone. She has 2 sons. She is . 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 Her son Justice is her durable power insurance job titles for healthcare. The patient is a former smoker. She does not use any alcohol or illicit drugs. Code status DNR Smoking status: Former smoker Tobacco type: cigarettes Alcohol intake: never Substance use: never Lack of Transportation: YES Lack of Food: Never True Current Housing: I Have Housing Concerned About Future Housing: YES Difficulty Paying Gas/Electric Bills: YES Difficulty Paying for Meds: YES Currently Unemployed: No Education: High School Diploma/GED Difficulty w/ Childcare or Family Care: No Spiritual care concerns: No Exam Narrative: EXAMINATION OF ORGAN SYSTEMS/BODY AR
== END 2023-09-08 08:15 | disposition home or self-care (01) ==
PROVIDERS: Emergency Provider Emergency Medicine; PCP Family Medicine
DX: Z43.1 Encounter for attention to gastrostomy (principal); J44.9 Chronic obstructive pulmonary disease, unspecified; I10 Essential (primary) hypertension; E03.9 Hypothyroidism, unspecified; K58.2 Mixed irritable bowel syndrome; N39.3 Stress incontinence (female) (male); K21.9 Gastro-esophageal reflux disease without esophagitis; Z66 Do not resuscitate; Z86.73 Personal history of transient ischemic attack (TIA), and cerebral infarction without residual deficits; Z98.49 Cataract extraction status, unspecified eye; Z96.1 Presence of intraocular lens; Z87.891 Personal history of nicotine dependence; Z90.710 Acquired absence of both cervix and uterus; Z90.49 Acquired absence of other specified parts of digestive tract
CPT/HCPCS: 99283

== ENCOUNTER 2023-11-15 00:56 | Outpatient (CLI) | payer MEDICARE, SELFPAY ==
[2023-11-11 11:47] VITALS: BMI 22.6
--- NOTE | 2023-11-11 11:53 | PC.NURSE ---
SPOKE WITH PT AND WENT OVER CURRENT NUTRITION STATUS AND PT STATES SHE HAS SUFFICIENT ORAL INTAKE AND IS GAINING WT. STATES SHE NO LONGER USES THE PEG TUBE FOR SUPPLEMENTS. VERY OCC. USES FOR POTASSIUM SUPPLEMENT. SHE STATES SHE IS READY TO HAVE IT REMOVED.
--- NOTE | 2023-11-11 15:46 | PM.HPGS ---
History of Present Illness History of Present Illness Consent: Risks, benefits, and alternatives have been discussed and questions answered. Patient agrees to proceed with procedure. Chief complaint: Encounter for attention to gastrostomy Narrative: Ade Rehman is a 73 year old female Who 6 months ago had placement of a percutaneous gastrostomy tube because of inadequate oral intake. She is now able to eat without needing the G-tube in would like to have it removed. Review of Systems Review of Systems: All systems reviewed & are unremarkable except as noted in HPI and below PMFSH Past Medical History Medical History Chronic GERD COPD (chronic obstructive pulmonary disease) CVA (cerebral vascular accident) Depression with anxiety Renee's disease Hemorrhagic eye History of COPD History of depression History of hypertension History of hypothyroidism Hypertension Hypokalemia Hypothyroidism Irritable bowel syndrome Mixed NAFLD (nonalcoholic fatty liver disease) Stress incontinence Weight loss Surgical History Surgical History H/O: hysterectomy History of cataract extraction with lens replacement Hx of cholecystectomy Previous back surgery X2 Family History Family History Other Cancer Mother Heart disease Father Thyroid disease Sibling Diabetes mellitus Social History Social History Social History: The patient lives home alone. She has 2 sons. She is . 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 Her son Justice is her durable power environmental attorney for healthcare. The patient is a former smoker. She does not use any alcohol or illicit drugs. Code status DNR Smoking status: Former smoker Tobacco type: cigarettes Alcohol intake: never Substance use: never Lack of Transportation: YES Lack of Food: Never True Current Housing: I Have Housing Concerned About Future Housing: YES Difficulty Paying Gas/Electric Bills: YES Difficulty Paying for Meds: YES Currently Unemployed: No Education: High School Diploma/GED Difficulty w/ Childcare or Family Care: No Living arrangements: with family Spiritual care concerns: No Meds Home Medications and Allergies Home Medications Medication Instructions Recorded Confirmed Type ascorbic acid (vitamin C) 250 mg 250 mg PO DAILY 06/05/23 11/11/23 History chewable tablet carvedilol 6.25 mg tablet 6.25 mg PO BID 06/05/23 11/15/23 History cholecalciferol (vitamin D3) 250 250 mcg PO DAILY 06/05/23 11/11/23 History mcg (10,000 unit) tablet cyclobenzaprine 10 mg tablet 10 mg PO TID 06/05/23 11/11/23 History levothyroxine 50 mcg tablet 50 mcg PO DAILY 06/05/23 11/15/23 History (Unithroid) mirtazapine 30 mg tablet 30 mg PO HS 06/05/23 11/11/23 History multivitamin 1 tablet PO DAILY 06/05/23 11/11/23 History ondansetron HCl 8 mg tablet 8 mg PO Q8H 06/05/23 11/11/23 History pantoprazole 40 mg tablet,delayed 40 mg PO BID 06/05/23 11/11/23 History release polyethylene glycol 400 0.25 % eye 1 drp ophthalmic (eye) BID PRN Dry 06/05/23 11/11/23 History gel drops Eyes potassium chloride 20 mEq 20 meq PO BID 06/05/23 11/11/23 History tablet,extended release(part/cryst) vitamin B complex (B 1 tablet PO DAILY 06/05/23 11/11/23 History Complex-Vitamin B12 tablet) hydrocodone 7.5 mg-acetaminophen 0.5 tablet PO BID #10 tabs 06/20/23 11/11/23 Rx 325 mg tablet hydrocortisone 10 mg tablet 10 mg PO BID #60 tabs 06/20/23 11/11/23 Rx clotrimazole 1 % topical cream 1 applic topical Q12H #15 grams 09/20/23 11/11/23 Rx (Jock Itch (clotrimazole)) Allergies Allergy/AdvReac Type Severity Reaction Status Date / Time baclofen Allergy Mild Unknown Verified 11/15/23 11:05 cefuroxime Allerg
[2023-11-15 11:07] VITALS: BP 122/78; PULSE 101; RESP 19; TEMP 36.2; O2SAT 97
--- NOTE | 2023-11-15 12:06 | PM.OP ---
Procedure Note - Brief Procedure Note - Brief Date of procedure: 11/15/23 Encounter for attention to gastrostomy Procedure performed: removal of senescent gastrostomy Surgeon: Avelino Cueto MD Description of procedure: with the patient supine, her gastrostomy stoma was lubricated by applying water-soluble lubricant to the G-tube which was then moved in an outward. The tube was then removed with the traction technique. the stoma was dressed with gauze. she tolerated the procedure well. Blood loss was 0
== END 2023-11-15 12:10 | disposition home or self-care (01) ==
PROVIDERS: PCP Family Medicine; Visit Provider Internal Medicine Gastroenterology
PROC: 0DH63UZ Insertion of Feeding Device into Stomach, Percutaneous Approach (ICD-10-PCS; CPT 43246; principal; 2023-11-15 12:00)
DX: Z43.1 Encounter for attention to gastrostomy (principal)
CPT/HCPCS: 99211; G0463

== ENCOUNTER 2025-08-03 14:38 | Emergency (ER) | payer SELFPAY ==
[2025-08-03 14:58] VITALS: BP 120/73; PULSE 66; RESP 16; TEMP 36.6; O2SAT 94
--- NOTE | 2025-08-03 16:30 | PC.NURSE ---
Pt states she cant stay any longer Pt ambulated to the exit with no difficulty
== END 2025-08-03 17:21 | disposition left against medical advice (07) ==
DX: S99.922A Unspecified injury of left foot, initial encounter (principal)
CPT/HCPCS: 99199